=== PATIENT | male | born 1950 | race Caucasian/White ===

== ENCOUNTER 2016-07-14 17:11 | Emergency (ER) | payer OTHER ==
[~2016-07-14] VITALS: Ht 193 cm; Wt 83.0 kg
[~2016-07-14 17:11] MED LIST: DOCU1CAP39 PO; LISI5 PO; LORTA5 PO; NICO21T TD; PRED10 PO; THIA100T PO
[2016-07-14 17:59] VITALS: BP 109/64; PULSE 69; RESP 16; TEMP 98.6; O2SAT 95
[2016-07-14 18:04] VITALS: BP 109/64; PULSE 67; RESP 16; TEMP 97.6; O2SAT 95
[2016-07-14] MEDS ORDERED: SODIUM CHLORIDE 0.9% FLUSH 10 ML FLUSH IVF PRN (18:15)
[2016-07-14] MEDS ORDERED: TETANUS/DIPHTHERIA TOXOID ADULT 0.5 ML VIAL IM ONE (18:15)
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
[2016-07-14] MEDS ORDERED: LORazepam 2 MG/ML VIAL IV PUSH ONE ×2 (18:30→18:45)
[2016-07-14] MEDS ORDERED: HALOPERIDOL LACTATE 5 MG/ML AMP IV PUSH ONE (18:30)
[2016-07-14 18:32] LABS: AUTOMATED NEUTROPHIL # 2.3 TH/MM3 (1.8-7.7); BASOPHIL % 0.8 % (0.0-2.0); HEMO FLAGS DIFF FINAL; LYMPH % 40.4 % (9.0-44.0); MEAN CORPUSCULAR HGB CONC 33.3 % (32.0-36.0); NEUT % 46.8 % (16.0-70.0); PLATELET COUNT 186 TH/MM3 (150-450); RED BLOOD COUNT 4.07 MIL/MM3 (4.50-5.90); RED CELL DISTRIBUTION WIDTH 15.4 % (11.6-17.2); WHITE BLOOD COUNT 4.9 TH/MM3 (4.0-11.0)
[2016-07-14 18:47] LABS: APTT (PATIENT) 29.8 SEC (24.3-30.1); INTERNATIONAL NORMALIZED RATIO 0.9 RATIO; PROTHROMBIN TIME - PATIENT 10.2 SEC (9.8-11.6)
[2016-07-14 19:00] LABS: BICARBONATE 22.8 MEQ/L (21.0-32.0); MAGNESIUM 2.2 MG/DL (1.5-2.5); POTASSIUM 3.8 MEQ/L (3.5-5.1)
--- NOTE | 2016-07-14 19:25 | RADRPT ---
EXAM DATE/TIME: 07/14/2016 18:57 [facility] COMPARISON: CT BRAIN W/O CONTRAST, July 02, 2015, 19:53. INDICATIONS : Found unresponsive. RADIATION DOSE: 36.17 CTDIvol (mGy) MEDICAL HISTORY : Seizures. SURGICAL HISTORY : None. ENCOUNTER: Initial ACUITY: 1 day PAIN SCALE: Non-responsive LOCATION: cranial TECHNIQUE: Multiple contiguous axial images were obtained of the head. Using automated exposure control and adj ustment of the mA and/or kV according to patient size, radiation dose was kept as low as reasonably a chievable to obtain optimal diagnostic quality images. FINDINGS: CEREBRUM: A small chronic lacunar infarction involving the right basal ganglia. This is unchanged. The ventricl es are normal for age. No evidence of midline shift, mass lesion, hemorrhage or acute infarction. N o extra-axial fluid collections are seen. POSTERIOR FOSSA: The cerebellum and brainstem are intact. The 4th ventricle is midline. The cerebellopontine angle i s unremarkable. EXTRACRANIAL: The visualized portion of the orbits is intact. SKULL: The calvaria is intact. No evidence of skull fracture. CONCLUSION: No acute intracranial abnormality. Fernando Solares Jr., MD on July 14, 2016 at 19:20 Board Certified Radiologist. This report was verified electronically.
[2016-07-14] MEDS ORDERED: SODIUM CHLORID 0.9% 500 ML INJ 500 ML IV ONE (20:00)
--- NOTE | 2016-07-14 20:16 | RADRPT ---
EXAM DATE/TIME: 07/14/2016 19:48 [facility] COMPARISON: No previous studies available for comparison. INDICATIONS : Right shoulder pain after fall. MEDICAL HISTORY : None. SURGICAL HISTORY : None. ENCOUNTER: Initial ACUITY: 1 day PAIN SCORE: Non-responsive. LOCATION: Right shoulder. FINDINGS: 2 views of the right shoulder show no fracture or dislocation. Degenerative changes involving the gle nohumeral joint and acromioclavicular joint. Soft tissues are unremarkable. CONCLUSION: 1. Degenerative changes. No acute abnormality. Fernando Solares Jr., MD on July 14, 2016 at 20:13 Board Certified Radiologist. This report was verified electronically.
--- NOTE | 2016-07-14 21:53 | RADRPT ---
EXAM DATE/TIME: 07/14/2016 21:33 [facility] COMPARISON: No previous studies available for comparison. INDICATIONS : Trauma, fall. Abrasion to forehead. RADIATION DOSE: 34.21 CTDIvol (mGy) MEDICAL HISTORY : None SURGICAL HISTORY : None. ENCOUNTER: Initial ACUITY: 1 day PAIN SCORE: 0/10 LOCATION: facial TECHNIQUE: Volumetric scanning of the facial bones was performed. Using automated exposure control and adjustme nt of the mA and/or kV according to patient size, radiation dose was kept as low as reasonably achiev able to obtain optimal diagnostic quality images. FINDINGS: ORBITS: The orbital and infraorbital osseous structures are intact. The retroconal structures have a normal configuration. No radiopaque foreign bodies are seen. NASAL BONE: The nasal bone and maxillary spine are intact the nasal septum is deviated slightly towards the patie nt's right. ZYGOMATIC ARCHES: Symmetric without evidence of fracture. SINUSES: The maxillary, ethmoid and frontal sinuses are intact. No air-fluid levels seen. Mild mucosal thicke maria del carmen involving the left maxillary sinus. NASAL CAVITY: The nasal septum is intact and midline. The lacrimal ducts are intact. SOFT TISSUES: No radiopaque foreign bodies seen. No soft-tissue swelling is seen. INTRACRANIAL: No intracranial air seen. CRIBIFORM PLATE: Grossly intact. CONCLUSION: 1. No acute abnormality. 2. Mild chronic left maxillary sinus disease. Fernando Solares Jr., MD on July 14, 2016 at 21:48 Board Certified Radiologist. This report was verified electronically.
--- NOTE | 2016-07-14 21:59 | RADRPT ---
EXAM DATE/TIME: 07/14/2016 21:33 [facility] COMPARISON: CT CERVICAL SPINE W/O CONTRAST, July 02, 2015, 19:53. INDICATIONS : Trauma, fall. Neck pain. RADIATION DOSE: 36.94 CTDIvol (mGy) MEDICAL HISTORY : Non-responsive. SURGICAL HISTORY : Cervical fusion. ENCOUNTER: Initial ACUITY: 1 day PAIN SCALE: 0/10 LOCATION: neck TECHNIQUE: Volumetric scanning of the cervical spine was performed. Multiplanar reconstructions in the sagittal, coronal and oblique axial planes were performed. Using automated exposure control and adjustment o f the mA and/or kV according to patient size, radiation dose was kept as low as reasonably achievable to obtain optimal diagnostic quality images. FINDINGS: VERTEBRAE: Since the previous examination there has been anterior fusion plate placement and intervening bone gr aft at C3-C4. Vertebral body heights are maintained. No fracture or dislocation. ALIGNMENT: No evidence of subluxation. C2-C3: The bony spinal canal is normal in size. No evidence of disc bulge or herniation. Bony uncovertebral hypertrophy generates bilateral neural foraminal narrowing. C3-C4: This level is fused. Bony uncovertebral hypertrophy generates narrowing of the lateral recesses bilat erally particularly on the left. It also generates significant neural foraminal narrowing bilaterally . Central canal is patent. C4-C5: There is a broad-based disc osteophyte complex. Pronounced bony uncovertebral hypertrophy. There is n arrowing of the central canal with total effacement of the lateral recesses and neural foramina. C5-C6: There is a broad-based disc osteophyte complex. Pronounced bony hypertrophy with narrowing of the lat eral recesses and neural foramina. C6-C7: A broad-based disc osteophyte complex with narrowing of the central canal. Prominent bony uncovertebr al hypertrophy effaces the lateral recesses and neural foramina bilaterally. C7-T1: The bony spinal canal is normal in size. No evidence of disc bulge or herniation. The neural forami na are bilaterally patent. CONCLUSION: 1. No fracture or dislocation. 2. Pronounced degenerative changes as detailed above. Fernando Solares Jr., MD on July 14, 2016 at 21:51 Board Certified Radiologist. This report was verified electronically.
[2016-07-15 00:12] VITALS: BP 135/70; PULSE 70; RESP 14; O2SAT 95
[2016-07-15 04:52] VITALS: BP 135/72; PULSE 80; RESP 18; O2SAT 98
== END 2016-07-15 05:18 | disposition home or self-care (01) ==
LOC: NEPE 17:11
DX: S09.90XA Unspecified injury of head, initial encounter (principal); S00.81XA Abrasion of other part of head, initial encounter; F10.229 Alcohol dependence with intoxication, unspecified; E87.1 Hypo-osmolality and hyponatremia; M25.511 Pain in right shoulder; F17.200 Nicotine dependence, unspecified, uncomplicated; W19.XXXA Unspecified fall, initial encounter; Y92.002 Bathroom of unspecified non-institutional (private) residence as the place of occurrence of the external cause; Z23 Encounter for immunization; Z86.59 Personal history of other mental and behavioral disorders; Z87.39 Personal history of other diseases of the musculoskeletal system and connective tissue; E78.00 Pure hypercholesterolemia, unspecified; Z87.09 Personal history of other diseases of the respiratory system; Z87.19 Personal history of other diseases of the digestive system; Z86.69 Personal history of other diseases of the nervous system and sense organs
CPT/HCPCS: 70450; 70486; 72125; 73030; 80048; 80307; 83735; 85025; 85610; 85730; 90471; 90714; 96361; 96374; 99285; J2060; J7040

== ENCOUNTER 2016-07-29 21:38 | Emergency (ER) | payer OTHER ==
[2016-07-29 21:52] VITALS: BP 152/84; PULSE 63; RESP 19; TEMP 97.9; O2SAT 100
[2016-07-29] MEDS ORDERED: LORazepam 2 MG/ML VIAL IV ONE (22:15)
[2016-07-29] MEDS ORDERED: HALOPERIDOL LACTATE 5 MG/ML AMP IV ONE (22:15)
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
[2016-07-29] MEDS ORDERED: LORazepam 2 MG/ML VIAL IV PUSH ONE (22:30)
[2016-07-29] MEDS ORDERED: diphenhydrAMINE HCL 50 MG/ML VIAL IV PUSH ONE (22:30)
[2016-07-29 23:00] VITALS: BP 111/70; PULSE 68; RESP 17; O2SAT 98
[2016-07-29 23:02] LABS: BASOPHIL % 0.5 % (0.0-2.0); EOSINOPHIL # 0.1 TH/MM3 (0-0.4); EOSINOPHIL % 1.5 % (0.0-4.0); HEMATOCRIT 40.8 % (39.0-51.0); HEMO FLAGS DIFF FINAL; LYMPH % 47.8 % (9.0-44.0); LYMPHOCYTE # 2.5 TH/MM3 (1.0-4.8); MEAN CELL VOLUME 97.5 FL (80.0-100.0); MEAN CORPUSCULAR HEMOGLOBIN 33.4 PG (27.0-34.0); MEAN CORPUSCULAR HGB CONC 34.3 % (32.0-36.0); MONO % 11.5 % (0.0-8.0); NEUT % 38.7 % (16.0-70.0); PLATELET COUNT 140 TH/MM3 (150-450); RED BLOOD COUNT 4.19 MIL/MM3 (4.50-5.90); RED CELL DISTRIBUTION WIDTH 15.4 % (11.6-17.2); WHITE BLOOD COUNT 5.2 TH/MM3 (4.0-11.0)
[2016-07-29 23:19] LABS: AMPHETAMINE, URINE NEG (NEG); BARBITURATES, URINE NEG (NEG); COCAINE, URINE NEG (NEG)
[2016-07-29 23:20] LABS: ANION GAP 7 MEQ/L (5-15); BICARBONATE 28.7 MEQ/L (21.0-32.0); BLOOD UREA NITROGEN 4 MG/DL (7-18); CHLORIDE 96 MEQ/L (98-107); GLOMERULAR FILTRATION RATE 147 ML/MIN (>89); POTASSIUM 3.5 MEQ/L (3.5-5.1); SODIUM (NA) 132 MEQ/L (136-145)
[2016-07-29 23:31] LABS: ACETAMINOPHEN LESS THAN 2.0 MCG/ML (10.0-30.0)
[2016-07-30] VITALS (8 sets, daily range): BP systolic 117–142; BP diastolic 67–86; PULSE 63–89; RESP 17–21; TEMP 96.9–98; O2SAT 98–99
--- NOTE | 2016-07-30 12:26 | PD ---
History of Present Illness Chief Complaint: Psychiatric Symptoms Time Seen by Provider: 14:00 Travel History International Travel<30 Days: No Contact w/Intl Traveler<30days: No Known affected area: No Legal Status Legal Status: Saray Valadez Act Signed By: JESUS Valadez Act Comment: OFFICER MONIE PUTNAM #[id number] History of Present Illness: Patient seen by this physician. He is obviously alcoholic. This facility is not licensed for alcohol detox or rehabilitation. Patient is not suicidal or homicidal at this time. His level of intoxication as dropped dramatically from a clinical standpoint. Patient reportedly has caregivers at home. Unlikely [facility] will take patient. However they are license for alcohol rehabilitation. This physician has lifted the Aprilpepper act as patient is not apparently wanting to harm himself or others at this time. PFSH Past Medical History Hx Anticoagulant Therapy: No Arthritis: Yes Asthma: No Autoimmune Disease: No Blood Disorders: No Anxiety: No Depression: Yes Heart Rhythm Problems: No Cancer: No Cardiovascular Problems: No High Cholesterol: Yes Chemotherapy: No Chest Pain: No Congestive Heart Failure: No COPD: Yes Cerebrovascular Accident: No Diabetes: No Diminished Hearing: No Endocrine: No Gastrointestinal Disorders: No GERD: No Glaucoma: No Genitourinary: No Headaches: Yes Hepatitis: Yes Hiatal Hernia: No Hypertension: No Immune Disorder: No Implanted Vascular Access Dvce: No Kidney Stones: No Musculoskeletal: Yes (CHRONIC SHOULDER/ROTATOR CUFF PAIN) Neurologic: Yes (OLD SKULL FX AND CHILD) Psychiatric: Yes (DEPRESSION) Reproductive: No Respiratory: No Immunizations Current: Yes Migraines: No Myocardial Infarction: No Radiation Therapy: No Renal Failure: No Seizures: Yes Sickle Cell Disease: No Sleep Apnea: No Thyroid Disease: No Ulcer: No Past Surgical History Abdominal Surgery: No AICD: No Appendectomy: No Arteriovenous Shunt: No Body Medical Devices: "METAL LEFT LEG " Cardiac Surgery: No Cholecystectomy: No Ear Surgery: No Endocrine Surgery: No Eye Surgery: Yes (CATARACT SURGERY BILATERALLY) Genitourinary Surgery: No Gynecologic Surgery: No Hysterectomy: No Insulin Pump: No Joint Replacement: No Neurologic Surgery: No Oral Surgery: No Pacemaker: No Thoracic Surgery: No Tonsillectomy: Yes Psychiatric History Psychiatric History Hx Psychiatric Treatment: HX. OF DEPRESSION. No significant evidence of depression after intoxication. History of Inpatient Treatment: No Guns or firearms in home: No Social History Hx Alcohol Use: Yes (" MUCH I CAN GET") Hx Tobacco Use: Yes (1 PACK PER DAY) Hx Substance Use: Yes Substance Use Type: Alcohol Other Substances Used: CHRONIC ETOH ABUSE Hx of Substance Use Treatment: No Allergies-Medications (Allergen,Severity, Reaction): Coded Allergies: No Known Allergies (Verified , 07/29/16) according to mother Reported Meds & Prescriptions Reported Meds & Active Scripts Active No Active Prescriptions or Reported Medications Review of Systems Except as stated in HPI: all other systems reviewed are Neg Exam Alert: Yes [place]: Person, Place, Situation Mood: Calm Affect: Appropriate Speech: Clear Eye Contact: Normal Memory Intact: Immediate, Recent, Remote Insight/Judgement Adequate MDM Medical Decision Making Medical Record Reviewed: Yes Assessment/Plan Patient's RenettaFND act being lifted as it is inappropriate in this situation. If patient wants detox and rehabilitation, recommend he goes to [facility]. However [facility] may refuse him because of his multiple medical issues. Psychiatry has nothing further to offer this individual. Orders Haloperidol Inj (Haldol Inj) (07/29/16 22:15) Complete Blood Count With Diff (07/29/16 22:13) Basic Metabolic Panel (Bmp) (07/29/16 22:13) Psych Screen (07/29/16 22:13) Lorazepam Inj (Ativan Inj) (07/29/16 22:15) Drug Screen, Random Urine (07/29/16 22:13) Alcohol (Ethanol) (07/29/16 22:13) Salicylates (Aspirin) (07/29/16 22:13) Tylenol (Acetaminophen) (07/29/16 22:13) Diphenhydramine Inj (Benadryl Inj) (07/29/16 22:30) Character Impersonator / Telemetry YVON.Q8H (07/29/16 22:16) End Tidal Co2 (Etco2) (07/29/16 ) Lorazepam Inj (Ativan Inj) (07/29/16 22:30) Restraints Non-Violent YVON.Q3H (07/30/16 00:15) Diet Regular Basic (07/30/16 Breakfast) Diet Regular Basic (07/30/16 Lunch) Results Vital Signs Date Time Temp Pulse Resp B/P Pulse Ox O2 Delivery O2 Flow Rate FiO2 07/30/16 10:00 88 18 117/68 Room Air 07/30/16 06:34 83 18 142/79 07/30/16 04:23 96.9 63 18 139/67 Room Air 07/30/16 03:00 67 17 135/86 98 Room Air 07/30/16 01:00 65 18 128/78 99 07/30/16 00:00 68 21 129/72 98 Room Air 07/29/16 23:00 68 17 111/70 98 Room Air 07/29/16 21:59 65 19 07/29/16 21:52 97.9 63 19 152/84 100 Laboratory Tests Test 07/29/16 22:45 White Blood Count 5.2 Red Blood Count 4.19 Hemoglobin 14.0 Hematocrit 40.8 Mean Corpuscular Volume 97.5 Mean Corpuscular Hemoglobin 33.4 Mean Corpuscular Hemoglobin 34.3 Concent Red Cell Distribution Width 15.4 Platelet Count 140 Mean Platelet Volume 7.7 Neutrophils (%) (Auto) 38.7 Lymphocytes (%) (Auto) 47.8 Monocytes (%) (Auto) 11.5 Eosinophils (%) (Auto) 1.5 Basophils (%) (Auto) 0.5 Neutrophils # (Auto) 2.0 Lymphocytes # (Auto) 2.5 Monocytes # (Auto) 0.6 Eosinophils # (Auto) 0.1 Basophils # (Auto) 0.0 CBC Comment DIFF FINAL Differential Comment Sodium Level 132 Potassium Level 3.5 Chloride Level 96 Carbon Dioxide Level 28.7 Anion Gap 7 Blood Urea Nitrogen 4 Creatinine 0.56 Estimat Glomerular Filtration 147 Rate Random Glucose 86 Calcium Level 8.6 Salicylates Level 4.6 Urine Opiates Screen NEG Acetaminophen Level LESS THAN 2.0 Urine Barbiturates Screen NEG Urine Amphetamines Screen NEG Urine Benzodiazepines Screen NEG Urine Cocaine Screen NEG Urine Cannabinoids Screen NEG Ethyl Alcohol Level 285 Diagnosis Primary Impression: Alcohol abuse Prescriptions No Active Prescriptions or Reported Meds John Manzano MD Jul 30, 2016 12:26
== END 2016-07-30 17:05 | disposition home or self-care (01) ==
LOC: NEPD 21:38 → NEPJ 07-30 17:05
DX: F10.129 Alcohol abuse with intoxication, unspecified (principal); Y90.8 Blood alcohol level of 240 mg/100 ml or more; M79.601 Pain in right arm; J44.9 Chronic obstructive pulmonary disease, unspecified; E78.00 Pure hypercholesterolemia, unspecified; F17.210 Nicotine dependence, cigarettes, uncomplicated
CPT/HCPCS: 80048; 80307; 85025; 96374; 96375; 99285; J1200; J1630; J2060

== ENCOUNTER 2016-08-05 11:55 | Emergency (ER) | payer OTHER ==
[~2016-08-05] VITALS: Ht 180.3 cm; Wt 60.0 kg
[2016-08-05 12:06] VITALS: BP 126/83; PULSE 79; RESP 20; TEMP 98; O2SAT 100
--- NOTE | 2016-08-05 12:08 | PD ---
HPI . fall with head injury Chief Complaint: Fall Time Seen by Provider: 12:08 Travel History International Travel<30 days: No Contact w/Intl Traveler<30days: No Traveled to known affect area: No History of Present Illness HPI 66 yr old male with hx of alcoholism here status post fall yesterday. Patient says he was in his bathroom and slipped and fell. He has been laying in his bathroom since yesterday and was found today by [employer] providers. He does not recall any of the event. He is complaining of pain in and around his nose. Paramedics found him covered in blood. There was also blood in his bed. Patient was most recently here on July 29, 2016 with alcohol intoxication. PFSH Past Medical History Hx Anticoagulant Therapy: No Arthritis: Yes Asthma: No Autoimmune Disease: No Blood Disorders: No Anxiety: No Depression: Yes Heart Rhythm Problems: No Cancer: No Cardiovascular Problems: No High Cholesterol: Yes Chemotherapy: No Chest Pain: No Congestive Heart Failure: No COPD: Yes Cerebrovascular Accident: No Diabetes: No Diminished Hearing: No Endocrine: No Gastrointestinal Disorders: No GERD: No Glaucoma: No Genitourinary: No Headaches: Yes Hepatitis: Yes Hiatal Hernia: No Hypertension: No Immune Disorder: No Implanted Vascular Access Dvce: No Kidney Stones: No Musculoskeletal: Yes (CHRONIC SHOULDER/ROTATOR CUFF PAIN) Neurologic: Yes (OLD SKULL FX AND CHILD) Psychiatric: Yes (DEPRESSION) Reproductive: No Respiratory: No Immunizations Current: Yes Migraines: No Myocardial Infarction: No Radiation Therapy: No Renal Failure: No Seizures: Yes Sickle Cell Disease: No Sleep Apnea: No Thyroid Disease: No Ulcer: No Past Surgical History Abdominal Surgery: No AICD: No Appendectomy: No Arteriovenous Shunt: No Body Medical Devices: "METAL LEFT LEG " Cardiac Surgery: No Cholecystectomy: No Ear Surgery: No Endocrine Surgery: No Eye Surgery: Yes (CATARACT SURGERY BILATERALLY) Genitourinary Surgery: No Gynecologic Surgery: No Hysterectomy: No Insulin Pump: No Joint Replacement: No Neurologic Surgery: No Oral Surgery: No Pacemaker: No Thoracic Surgery: No Tonsillectomy: Yes Social History Alcohol Use: Yes (" MUCH I CAN GET") Tobacco Use: Yes (1 PACK PER DAY) Substance Use: Yes Allergies-Medications (Allergen,Severity, Reaction): Coded Allergies: No Known Allergies (Verified , 07/29/16) according to mother Reported Meds & Prescriptions Reported Meds & Active Scripts Active No Active Prescriptions or Reported Medications Review of Systems General / Constitutional: No: Fever Eyes: No: Visual changes HENT: Positive: Other (nose pain ), No: Headaches Cardiovascular: No: Chest Pain or Discomfort Respiratory: No: Shortness of Breath Gastrointestinal: No: Abdominal Pain Genitourinary: No: Dysuria Musculoskeletal: Positive: Pain (chronic right shoulder pain ) Skin: No Rash Neurologic: No: Weakness Psychiatric: No: Depression Endocrine: No: Polydipsia Hematologic/Lymphatic: No: Easy Bruising Physical Exam Narrative GENERAL: AAO x 3, thin appearing, Disheveled, smells like urine and raw poultry. SKIN: Warm and dry. No visible rashes or bruising. small laceration 2.5 cm to forehead HEAD: Normocephalic and atraumatic. EYES: No scleral icterus. No injection or drainage. EOM intact, PERRLA ENT: No nasal drainage noted. Mucous membranes pink. Airway patent. NECK: Supple, trachea midline. No JVD. CARDIOVASCULAR: Regular rate and rhythm without murmurs, gallops, or rubs. RESPIRATORY: Breath sounds equal bilaterally. No accessory muscle use. No rhonchi or rales. GASTROINTESTINAL: Abdomen soft, non-tender, nondistended. EXTREMITIES: No cyanosis or edema. Right shoulder pain elicited with movement; BACK: Nontender without obvious deformity. No CVA tenderness. NEURO: CN II-12 intact, tax specialist strength normal b/l, UE and LE 5/5, no focal deficits PSYCH: AAO x 3, normal affect. Data Data Last Documented VS Vital Signs Date Time Temp Pulse Resp B/P Pulse Ox O2 Delivery O2 Flow Rate FiO2 08/05/16 13:16 71 16 167/86 97 08/05/16 12:06 98.0 Orders Complete Blood Count With Diff (08/05/16 12:08) Comprehensive Metabolic Panel (08/05/16 12:08) Prothrombin Time / Inr (Pt) (08/05/16 12:08) Act Partial Throm Time (Ptt) (08/05/16 12:08) Ct Brain W/O Iv Contrast(Rout) (08/05/16 12:08) Ecg Monitoring (08/05/16 12:08) Iv Access Insert/Monitor (08/05/16 12:08) Oximetry (08/05/16 12:08) Sodium Chloride 0.9% Flush (Ns Flush) (08/05/16 12:15) Ct Facial Bones W/O Iv Cont (08/05/16 12:08) Sodium Chlor 0.9% 1000 Ml Inj (Ns 1000 M (08/05/16 12:15) Chest, Single Ap (08/05/16 ) Lidocaine 1% Inj (50 Ml) (Xylocaine 1% I (08/05/16 12:45) Tetanus/Diphtheria Tox Adult (Tetanus/Di (08/05/16 12:45) Labs Laboratory Tests Test 08/05/16 12:20 White Blood Count 6.0 TH/MM3 Red Blood Count 3.37 MIL/MM3 Hemoglobin 11.0 GM/DL Hematocrit 32.0 % Mean Corpuscular Volume 94.9 FL Mean Corpuscular Hemoglobin 32.7 PG Mean Corpuscular Hemoglobin 34.4 % Concent Red Cell Distribution Width 15.3 % Platelet Count 142 TH/MM3 Mean Platelet Volume 7.8 FL Neutrophils (%) (Auto) 57.1 % Lymphocytes (%) (Auto) 30.7 % Monocytes (%) (Auto) 11.4 % Eosinophils (%) (Auto) 0.3 % Basophils (%) (Auto) 0.5 % Neutrophils # (Auto) 3.4 TH/MM3 Lymphocytes # (Auto) 1.8 TH/MM3 Monocytes # (Auto) 0.7 TH/MM3 Eosinophils # (Auto) 0.0 TH/MM3 Basophils # (Auto) 0.0 TH/MM3 CBC Comment DIFF FINAL Differential Comment Prothrombin Time 10.7 SEC Prothromb Time International 1.0 RATIO Ratio Activated Partial 26.6 SEC Thromboplast Time Sodium Level 134 MEQ/L Potassium Level 3.8 MEQ/L Chloride Level 99 MEQ/L Carbon Dioxide Level 26.4 MEQ/L Anion Gap 9 MEQ/L Blood Urea Nitrogen 5 MG/DL Creatinine 0.63 MG/DL Estimat Glomerular Filtration 128 ML/MIN Rate Random Glucose 109 MG/DL Calcium Level 8.7 MG/DL Total Bilirubin 0.9 MG/DL Aspartate Amino Transf 15 U/L (AST/SGOT) Alanine Aminotransferase 15 U/L (ALT/SGPT) Alkaline Phosphatase 64 U/L Total Protein 6.5 GM/DL Albumin 3.0 GM/DL MDM Medical Decision Making Medical Screen Exam Complete: Yes Emergency Medical Condition: Yes Medical Record Reviewed: Yes Differential Diagnosis forehead laceration, etoh abuse, closed head injury, chronic right shoulder pain , nasal fracture, Narrative Course 66 yr old male here s/p fall yesterday. He appears to have a small laceration to his forehead. Exam is otherwise unremarkable except for right shoulder pain with movement that is reported as chronic. IV access was obtained, patient was given IV fluids. Labs, chest x-ray and CT of the chest along with CT of the facial bones have been ordered. Patient consented to repair of the laceration on his for head. Patient tolerated repair without incident. A total of 5 sutures were placed. He was advised to have these removed in 5-7 days. labs reviewed: mild hyponatremia, hypoalbuminemia, CT brain no acute findings. CXR no acute findings. Last Impressions Head CT 08/05/16 1208 Signed Impressions: Service Date/Time: , August 05, 2016 13:28 - CONCLUSION: 1. No acute intracranial abnormality. 2. Contusion within the scalp. Santiago Cox MD Chest X-Ray 08/05/16 0000 Signed Impressions: Service Date/Time: , August 05, 2016 12:42 - CONCLUSION: 1. No acute cardiopulmonary disease. Randall Gonzalez MD Laboratory Tests Test 08/05/16 12:20 White Blood Count 6.0 TH/MM3 Red Blood Count 3.37 MIL/MM3 Hemoglobin 11.0 GM/DL Hematocrit 32.0 % Mean Corpuscular Volume 94.9 FL Mean Corpuscular Hemoglobin 32.7 PG Mean Corpuscular Hemoglobin 34.4 % Concent Red Cell Distribution Width 15.3 % Platelet Count 142 TH/MM3 Mean Platelet Volume 7.8 FL Neutrophils (%) (Auto) 57.1 % Lymphocytes (%) (Auto) 30.7 % Monocytes (%) (Auto) 11.4 % Eosinophils (%) (Auto) 0.3 % Basophils (%) (Auto) 0.5 % Neutrophils # (Auto) 3.4 TH/MM3 Lymphocytes # (Auto) 1.8 TH/MM3 Monocytes # (Auto) 0.7 TH/MM3 Eosinophils # (Auto) 0.0 TH/MM3 Basophils # (Auto) 0.0 TH/MM3 CBC Comment DIFF FINAL Differential Comment Prothrombin Time 10.7 SEC Prothromb Time International 1.0 RATIO Ratio Activated Partial 26.6 SEC Thromboplast Time Sodium Level 134 MEQ/L Potassium Level 3.8 MEQ/L Chloride Level 99 MEQ/L Carbon Dioxide Level 26.4 MEQ/L Anion Gap 9 MEQ/L Blood Urea Nitrogen 5 MG/DL Creatinine 0.63 MG/DL Estimat Glomerular Filtration 128 ML/MIN Rate Random Glucose 109 MG/DL Calcium Level 8.7 MG/DL Total Bilirubin 0.9 MG/DL Aspartate Amino Transf 15 U/L (AST/SGOT) Alanine Aminotransferase 15 U/L (ALT/SGPT) Alkaline Phosphatase 64 U/L Total Protein 6.5 GM/DL Albumin 3.0 GM/DL All labs reviewed. CT of the brain without any acute intracranial abnormality. CT of the facial bones without any acute fracture. There is an old nasal bone fracture. Workup is unremarkable for any acute findings. Admission is not indicated. Patient is ambulatory. Patient has been cleared for discharge and was advised to follow-up with his primary care provider. I've recommended that he refrain from drinking alcohol. I recommended he try to enroll in some type of alcoholic anonymous program or rehabilitation. Patient verbalized understanding of instructions, questions were answered, and thanked me for their care. I advised them if their condition worsens, please return to the nearest emergency room for further care. Procedures Procedure Narrative LACERATION LOCATION: Forehead LENGTH: 2.5 cm NUMBER OF STITCHES/MARTINE: 5 REPAIR: The area of the laceration was prepped with Betadine and sterilely draped. The laceration was infiltrated with 1% lidocaine. The wound was copiously irrigated and explored without evidence of foreign body, tendon injury or neurovascular injury. The wound was closed using 5-0 Prolene. This was a single layer repair. A sterile dressing was applied. The patient was advised to keep the dressing clean and dry. Patient tolerated the procedure well. Diagnosis Primary Impression: Forehead laceration Qualified Code: S01.81XA - Forehead laceration, initial encounter Additional Impression: Fall Qualified Code: W19.XXXA - Fall, initial encounter Patient Instructions: General Instructions Additional Instructions: Sutures (5) will need to be removed in 5-7 days. As we discussed, you can go to an urgent care, primary care doctor, the [place] [facility] or return to the emergency department for removal. Keep area clean and dry. Use gauze as we discussed and change 1-2 times a day. Watch for signs of infection: fever, redness, swelling, warmth, pus or drainage , red streaks around the cut, and increased pain from the area. If you received a tetanus shot, you may experience tenderness at the injection site. This is normal. Med/Other Pt SpecificInfo: No Change to Meds Scripts No Active Prescriptions or Reported Meds Disposition: 01 DISCHARGE HOME Condition: Stable Loli Manuel Aug 05, 2016 12:08
[2016-08-05] MEDS ORDERED: SODIUM CHLORIDE 0.9% FLUSH 10 ML FLUSH IVF PRN (12:15)
[2016-08-05] MEDS ORDERED: SODIUM CHLOR 0.9% 1000 ML INJ 1,000 ML IV ONE (12:15)
[2016-08-05 12:17] VITALS: O2SAT 100
[2016-08-05 12:44] VITALS: BP 113/68; PULSE 76; RESP 16; O2SAT 97
[2016-08-05] MEDS ORDERED: TETANUS/DIPHTHERIA TOXOID ADULT 0.5 ML VIAL IM ONE (12:45)
[2016-08-05] MEDS ORDERED: LIDOCAINE HCL 1% 50 ML VIAL INFIL ONE (12:45)
[2016-08-05 12:46] LABS: AUTOMATED NEUTROPHIL # 3.4 TH/MM3 (1.8-7.7); BASOPHIL % 0.5 % (0.0-2.0); EOSINOPHIL % 0.3 % (0.0-4.0); HEMO FLAGS DIFF FINAL; LYMPH % 30.7 % (9.0-44.0); LYMPHOCYTE # 1.8 TH/MM3 (1.0-4.8); MEAN CELL VOLUME 94.9 FL (80.0-100.0); MEAN CORPUSCULAR HEMOGLOBIN 32.7 PG (27.0-34.0); MEAN CORPUSCULAR HGB CONC 34.4 % (32.0-36.0); MONO % 11.4 % (0.0-8.0); NEUT % 57.1 % (16.0-70.0); PLATELET COUNT 142 TH/MM3 (150-450); RED BLOOD COUNT 3.37 MIL/MM3 (4.50-5.90); RED CELL DISTRIBUTION WIDTH 15.3 % (11.6-17.2)
[2016-08-05 12:55] LABS: APTT (PATIENT) 26.6 SEC (24.3-30.1); PROTHROMBIN TIME - PATIENT 10.7 SEC (9.8-11.6)
[2016-08-05 13:04] LABS: ALT (GPT) 15 U/L (12-78); ANION GAP 9 MEQ/L (5-15); AST (GOT) 15 U/L (15-37); BICARBONATE 26.4 MEQ/L (21.0-32.0); BLOOD UREA NITROGEN 5 MG/DL (7-18); CHLORIDE 99 MEQ/L (98-107); GLOMERULAR FILTRATION RATE 128 ML/MIN (>89); POTASSIUM 3.8 MEQ/L (3.5-5.1); SODIUM (NA) 134 MEQ/L (136-145)
[2016-08-05 13:06] LABS: ALKALINE PHOSPHATASE 64 U/L (45-117); TOTAL BILIRUBIN ADULT 0.9 MG/DL (0.2-1.0)
--- NOTE | 2016-08-05 13:07 | RADRPT ---
EXAM DATE/TIME: 08/05/2016 12:42 [facility] COMPARISON: CHEST SINGLE AP, July 10, 2015, 13:22. INDICATIONS : Chest discomfort; fall. MEDICAL HISTORY : Chronic obstructive pulmonary disease. SURGICAL HISTORY : None. ENCOUNTER: Initial ACUITY: 1 day PAIN SCORE: 2/10 LOCATION: Bilateral chest FINDINGS: Lungs are hyper aerated but are otherwise clear. Cardiomediastinal contours are within normal limits. Healed left-sided rib fractures are again noted. Bony thorax is otherwise intact. CONCLUSION: 1. No acute cardiopulmonary disease. Randall Gonzalez MD on August 05, 2016 at 13:04 Board Certified Radiologist. This report was verified electronically.
[2016-08-05 13:16] VITALS: BP 167/86; PULSE 71; RESP 16; O2SAT 97
--- NOTE | 2016-08-05 13:43 | RADRPT ---
EXAM DATE/TIME: 08/05/2016 13:28 [facility] COMPARISON: CT FACIAL BONES W/O CONTRAST, July 14, 2016, 21:33. INDICATIONS : Patient fell RADIATION DOSE: 35.28 CTDIvol (mGy) MEDICAL HISTORY : Chronic obstructive pulmonary disease. Seizures. Hepatitis. SURGICAL HISTORY : None. ENCOUNTER: Initial ACUITY: 1 day PAIN SCALE: 0/10 LOCATION: cranial TECHNIQUE: Multiple contiguous axial images were obtained of the head. Using automated exposure control and adj ustment of the mA and/or kV according to patient size, radiation dose was kept as low as reasonably a chievable to obtain optimal diagnostic quality images. FINDINGS: CEREBRUM: The ventricles are normal for age. No evidence of midline shift, mass lesion, hemorrhage or acute in farction. No extra-axial fluid collections are seen. POSTERIOR FOSSA: The cerebellum and brainstem are intact. The 4th ventricle is midline. The cerebellopontine angle i s unremarkable. EXTRACRANIAL: The visualized portion of the orbits is intact. SKULL: No evidence of skull fracture. Note is made of hematoma within the scalp along the frontal region. CONCLUSION: 1. No acute intracranial abnormality. 2. Contusion within the scalp. Santiago Cox MD on August 05, 2016 at 13:39 Board Certified Radiologist. This report was verified electronically.
--- NOTE | 2016-08-05 16:31 | RADRPT ---
EXAM DATE/TIME: 08/05/2016 13:28 [facility] COMPARISON: No previous studies available for comparison. INDICATIONS : Patient fell RADIATION DOSE: 60.59 CTDIvol (mGy) MEDICAL HISTORY : Chronic obstructive pulmonary disease. Seizures. Hepatitis. SURGICAL HISTORY : None. ENCOUNTER: Initial ACUITY: 1 day PAIN SCORE: 5/10 LOCATION: Left forehead TECHNIQUE: Volumetric scanning of the facial bones was performed. Using automated exposure control and adjustme nt of the mA and/or kV according to patient size, radiation dose was kept as low as reasonably achiev able to obtain optimal diagnostic quality images. FINDINGS: There is a laceration in the left frontal scalp. No acute facial bone fracture. Old nasal bone fractu re similar to July 14. Visualized paranasal sinuses are clear. Globes intact. CONCLUSION: 1. Left frontal scalp laceration. Old left nasal bone fracture. No acute fracture identified. Kiet Gonzalez MD on August 05, 2016 at 16:25 Board Certified Radiologist. This report was verified electronically.
[2016-08-05 17:41] VITALS: BP 123/72; PULSE 78; RESP 20
== END 2016-08-05 17:43 | disposition home or self-care (01) ==
LOC: NEPC 11:55
DX: S01.81XA Laceration without foreign body of other part of head, initial encounter (principal); S00.03XA Contusion of scalp, initial encounter; E87.1 Hypo-osmolality and hyponatremia; E88.09 Other disorders of plasma-protein metabolism, not elsewhere classified; J44.9 Chronic obstructive pulmonary disease, unspecified; E78.00 Pure hypercholesterolemia, unspecified; F17.210 Nicotine dependence, cigarettes, uncomplicated; W01.0XXA Fall on same level from slipping, tripping and stumbling without subsequent striking against object, initial encounter; Y93.9 Activity, unspecified; Y92.002 Bathroom of unspecified non-institutional (private) residence as the place of occurrence of the external cause; Z23 Encounter for immunization
CPT/HCPCS: 12011; 70450; 70486; 71010; 80053; 85025; 85610; 85730; 90471; 90714; 96360; 96361; 99285; J7030

== ENCOUNTER 2016-08-06 19:53 | Emergency (ER) | payer OTHER ==
[~2016-08-06] VITALS: Ht 182.9 cm; Wt 68.0 kg
[2016-08-06 20:15] VITALS: BP 112/64; PULSE 93; RESP 18; TEMP 98.2; O2SAT 95
--- NOTE | 2016-08-06 20:21 | PD ---
HPI Chief Complaint: Fall Time Seen by Provider: 20:15 Travel History International Travel<30 days: No Contact w/Intl Traveler<30days: No Traveled to known affect area: No History of Present Illness HPI Patient is a 66-year-old male, alcoholic, that fell 2 days ago. He went to [facility] yesterday and the CT brain showed no acute findings and the chest x-ray showed no acute findings and the blood work was unremarkable except for a mild hyponatremia and hypoalbuminemia. An alcohol level was not done at that time. The patient was found in his yard unable to walk. The patient states it is not alcohol, it was a pill that the OH gave been that made him unable to walk. The patient does not know the name of the pill. The patient was brought in by ambulance, a bystander called the ambulance. The patient does not want to be here. The patient denies any alcohol in the last 2 days. PFSH Past Medical History Hx Anticoagulant Therapy: No Arthritis: Yes Asthma: No Autoimmune Disease: No Blood Disorders: No Anxiety: No Depression: Yes Heart Rhythm Problems: No Cancer: No Cardiovascular Problems: No High Cholesterol: Yes Chemotherapy: No Chest Pain: No Congestive Heart Failure: No COPD: Yes Cerebrovascular Accident: No Diabetes: No Diminished Hearing: No Endocrine: No Gastrointestinal Disorders: No GERD: No Glaucoma: No Genitourinary: No Headaches: Yes Hepatitis: Yes Hiatal Hernia: No Hypertension: No Immune Disorder: No Implanted Vascular Access Dvce: No Kidney Stones: No Musculoskeletal: Yes (CHRONIC SHOULDER/ROTATOR CUFF PAIN) Neurologic: Yes (OLD SKULL FX AND CHILD) Psychiatric: Yes (DEPRESSION) Reproductive: No Respiratory: No Immunizations Current: Yes Migraines: No Myocardial Infarction: No Radiation Therapy: No Renal Failure: No Seizures: Yes Sickle Cell Disease: No Sleep Apnea: No Thyroid Disease: No Ulcer: No Past Surgical History Abdominal Surgery: No AICD: No Appendectomy: No Arteriovenous Shunt: No Body Medical Devices: "METAL LEFT LEG " Cardiac Surgery: No Cholecystectomy: No Ear Surgery: No Endocrine Surgery: No Eye Surgery: Yes (CATARACT SURGERY BILATERALLY) Genitourinary Surgery: No Gynecologic Surgery: No Hysterectomy: No Insulin Pump: No Joint Replacement: No Neurologic Surgery: No Oral Surgery: No Pacemaker: No Thoracic Surgery: No Tonsillectomy: Yes Social History Alcohol Use: Yes (" MUCH I CAN GET") Tobacco Use: Yes (1 PACK PER DAY) Substance Use: Yes Allergies-Medications (Allergen,Severity, Reaction): Coded Allergies: No Known Allergies (Verified , 08/06/16) according to mother Reported Meds & Prescriptions Reported Meds & Active Scripts Active No Active Prescriptions or Reported Medications Review of Systems Except as stated in HPI: all other systems reviewed are Neg Physical Exam Narrative GENERAL: The patient is alert, oriented 3 in no apparent distress. SKIN: Focused skin assessment warm/dry. HEAD: There is a small crusted abrasion on the forehead which is healing well and there is no associated bony deformity.. Normocephalic. Neither raccoon eyes or ontiveros sign is present. EYES: Pupils equal and round. No scleral icterus. No injection or drainage. ENT: No nasal bleeding or discharge. Mucous membranes pink and moist. NECK: Trachea midline. No JVD. There is no posterior spinous process deformity or tenderness. CARDIOVASCULAR: Regular rate and rhythm. No murmur appreciated. RESPIRATORY: No accessory muscle use. Clear to auscultation. Breath sounds equal bilaterally. GASTROINTESTINAL: Abdomen soft, non-tender, nondistended. Hepatic and splenic margins not palpable. MUSCULOSKELETAL: No obvious deformities. No clubbing. No cyanosis. No edema. NEUROLOGICAL: Awake and alert. No obvious cranial nerve deficits. Motor grossly within normal limits. Normal speech. PSYCHIATRIC: Appropriate mood and affect; insight and judgment normal. Data Data Last Documented VS Vital Signs Date Time Temp Pulse Resp B/P Pulse Ox O2 Delivery O2 Flow Rate FiO2 08/06/16 20:15 98.2 93 18 112/64 95 Orders Complete Blood Count With Diff (08/06/16 20:17) Comprehensive Metabolic Panel (08/06/16 20:17) Alcohol (Ethanol) (08/06/16 20:17) Sodium Chlor 0.9% 1000 Ml Inj (Ns 1000 M (08/06/16 20:30) Thiamine Inj (Thiamine Inj) (08/06/16 20:30) Labs Laboratory Tests Test 08/06/16 19:35 White Blood Count 6.8 TH/MM3 Red Blood Count 2.89 MIL/MM3 Hemoglobin 9.4 GM/DL Hematocrit 27.3 % Mean Corpuscular Volume 94.7 FL Mean Corpuscular Hemoglobin 32.6 PG Mean Corpuscular Hemoglobin 34.5 % Concent Red Cell Distribution Width 14.9 % Platelet Count 157 TH/MM3 Mean Platelet Volume 7.2 FL Neutrophils (%) (Auto) 46.6 % Lymphocytes (%) (Auto) 41.8 % Monocytes (%) (Auto) 9.3 % Eosinophils (%) (Auto) 0.8 % Basophils (%) (Auto) 1.5 % Neutrophils # (Auto) 3.2 TH/MM3 Lymphocytes # (Auto) 2.8 TH/MM3 Monocytes # (Auto) 0.6 TH/MM3 Eosinophils # (Auto) 0.1 TH/MM3 Basophils # (Auto) 0.1 TH/MM3 CBC Comment DIFF FINAL Differential Comment Sodium Level 137 MEQ/L Potassium Level 3.3 MEQ/L Chloride Level 102 MEQ/L Carbon Dioxide Level 22.3 MEQ/L Anion Gap 13 MEQ/L Blood Urea Nitrogen 7 MG/DL Creatinine 0.72 MG/DL Estimat Glomerular Filtration 110 ML/MIN Rate Random Glucose 99 MG/DL Calcium Level 8.5 MG/DL Total Bilirubin 0.4 MG/DL Aspartate Amino Transf 20 U/L (AST/SGOT) Alanine Aminotransferase 16 U/L (ALT/SGPT) Alkaline Phosphatase 82 U/L Total Protein 6.9 GM/DL Albumin 3.3 GM/DL Ethyl Alcohol Level 238 MG/DL [facility] Medical Decision Making Medical Screen Exam Complete: Yes Emergency Medical Condition: Yes Medical Record Reviewed: Yes Interpretation(s) The CBC shows a hemoglobin of 9.4 and hematocrit of 27.3. It is otherwise normal. The complete metabolic profile shows potassium 3.3 and albumen of 3.3 but is otherwise normal. The alcohol level is 238. Differential Diagnosis Alcohol intoxication, electrolyte imbalance, renal insufficiency, anemia Narrative Course The patient is obviously not truthful about his alcohol use. His alcohol level is 238 when he said he is not drank alcohol yesterday or today. It is suspected that his high alcohol level was responsible for his fall in the yard today. He needs to discontinue alcohol and follow-up with [facility]. His anemia is not severe enough to cause the symptoms. Diagnosis Primary Impression: Alcohol abuse Additional Impression: Anemia Additional Instructions: As we discussed, your alcohol level was extremely high and was probably responsible for the fall today and your yard. Follow-up with [facility] to get off alcohol, this is very important to you. Scripts No Active Prescriptions or Reported Meds Disposition: DISCHARGE HOME Condition: Stable Kosta Sahni MD Aug 06, 2016 20:21
[2016-08-06] MEDS ORDERED: THIAMINE INJ 100 MG in SODIUM CHLORIDE 0.9% INJ 100 ML IV ONE (20:30)
[2016-08-06 20:37] LABS: AUTOMATED NEUTROPHIL # 3.2 TH/MM3 (1.8-7.7); BASOPHIL # 0.1 TH/MM3 (0-0.2); BASOPHIL % 1.5 % (0.0-2.0); EOSINOPHIL # 0.1 TH/MM3 (0-0.4); EOSINOPHIL % 0.8 % (0.0-4.0); HEMATOCRIT 27.3 % (39.0-51.0); HEMO FLAGS DIFF FINAL; LYMPH % 41.8 % (9.0-44.0); LYMPHOCYTE # 2.8 TH/MM3 (1.0-4.8); MEAN CELL VOLUME 94.7 FL (80.0-100.0); MEAN CORPUSCULAR HEMOGLOBIN 32.6 PG (27.0-34.0); MEAN CORPUSCULAR HGB CONC 34.5 % (32.0-36.0); MONO % 9.3 % (0.0-8.0); NEUT % 46.6 % (16.0-70.0); PLATELET COUNT 157 TH/MM3 (150-450); RED BLOOD COUNT 2.89 MIL/MM3 (4.50-5.90); RED CELL DISTRIBUTION WIDTH 14.9 % (11.6-17.2); WHITE BLOOD COUNT 6.8 TH/MM3 (4.0-11.0)
[2016-08-06 20:44] LABS: CHLORIDE 102 MEQ/L (98-107); POTASSIUM 3.3 MEQ/L (3.5-5.1); SODIUM (NA) 137 MEQ/L (136-145)
[2016-08-06 20:48] LABS: ANION GAP 13 MEQ/L (5-15); BICARBONATE 22.3 MEQ/L (21.0-32.0); BLOOD UREA NITROGEN 7 MG/DL (7-18)
[2016-08-06 20:51] LABS: ALT (GPT) 16 U/L (12-78); AST (GOT) 20 U/L (15-37); GLOMERULAR FILTRATION RATE 110 ML/MIN (>89)
[2016-08-06 20:53] LABS: TOTAL BILIRUBIN ADULT 0.4 MG/DL (0.2-1.0)
[2016-08-06 20:54] LABS: ALKALINE PHOSPHATASE 82 U/L (45-117)
[2016-08-06] MEDS: SODIUM CHLOR 0.9% 1000 ML INJ 1,000 ML IV SCH ×2 (21:00→21:24)
[2016-08-06] MEDS ORDERED: HALOPERIDOL LACTATE 5 MG/ML AMP IM ONE ×2 (21:30→23:15)
[2016-08-06 22:25] VITALS: PULSE 92; RESP 18; O2SAT 97
[2016-08-07 00:11] VITALS: BP 104/52; PULSE 88; RESP 18; O2SAT 97
[2016-08-07 02:34] VITALS: BP 122/68; PULSE 84; RESP 18; O2SAT 97
[2016-08-07 04:16] VITALS: BP 117/62; PULSE 77; RESP 18; O2SAT 97
[2016-08-07 06:10] VITALS: BP 121/66; PULSE 72; RESP 18; O2SAT 97
[2016-08-07 08:05] VITALS: BP 108/67; TEMP 97.2
== END 2016-08-07 09:51 | disposition home or self-care (01) ==
LOC: PHEFT 19:53 → PHED 08-07 09:51
DX: F10.10 Alcohol abuse, uncomplicated (principal); D64.9 Anemia, unspecified; R45.6 Violent behavior; E78.00 Pure hypercholesterolemia, unspecified; F17.200 Nicotine dependence, unspecified, uncomplicated; Z87.39 Personal history of other diseases of the musculoskeletal system and connective tissue; Z86.59 Personal history of other mental and behavioral disorders; Z87.09 Personal history of other diseases of the respiratory system; Z86.69 Personal history of other diseases of the nervous system and sense organs
CPT/HCPCS: 80053; 80307; 85025; 96361; 96365; 96372; 99285; J1630; J3411; J7030

== ENCOUNTER 2016-10-22 12:33 | Emergency (ER) | payer OTHER ==
[2016-10-22 12:39] VITALS: BP 153/84; PULSE 80; RESP 20; TEMP 98.7; O2SAT 96
[2016-10-22] MEDS ORDERED: LIDOCAINE HCL 1% 50 ML VIAL INFIL ONE (12:45)
--- NOTE | 2016-10-22 13:23 | PD ---
Physical Exam Date Seen by Provider: Oct 22, 2016 Time Seen by Provider: 13:22 Narrative 66-year-old male here for a fall. I was asked by my attending to repair a laceration to his forehead. Please refer to his note. Data Data Last Documented VS Vital Signs Date Time Temp Pulse Resp B/P (MAP) Pulse Ox O2 Delivery O2 Flow Rate FiO2 10/22/16 12:39 98.7 80 20 153/84 (107) 96 Orders Orders Wound Care (10/22/16 12:35) Lidocaine 1% Inj (50 Ml) (Xylocaine 1% I (10/22/16 12:45) Ct Brain W/O Iv Contrast(Rout) (10/22/16 12:39) Ct Facial Bones W/O Iv Cont (10/22/16 12:39) Ct Cerv Spine W/O Contrast (10/22/16 12:39) MDM Medical Record Reviewed: Yes Supervised Visit with CAL: No Procedures Procedure Narrative LACERATION LOCATION: Forehead LENGTH: 2 cm x 2 NUMBER OF STITCHES/MARTINE: 6 sutures on left, 5 sutures on right REPAIR: The area of the laceration was prepped with Betadine and sterilely draped. The laceration was infiltrated with 1%Xylocaine. The wound was copiously irrigated and explored without evidence of foreign body, tendon injury or neurovascular injury. The wound was closed using 4-0 Prolene. This was a 1 layer repair. A sterile dressing was applied. The patient was advised to keep the dressing clean and dry. Patient tolerated the procedure well. Scripts No Active Prescriptions or Reported Meds Anton Carter Oct 22, 2016 13:23
[2016-10-22 13:51] VITALS: BP 133/87; PULSE 81; RESP 18; O2SAT 99
--- NOTE | 2016-10-22 13:54 | RADRPT ---
EXAM DATE/TIME: 10/22/2016 13:23 [facility] COMPARISON: CT BRAIN W/O CONTRAST, August 05, 2016, 13:28. INDICATIONS : Trauma. Fall. Forehead laceration. RADIATION DOSE: 10.9 CTDIvol (mGy) MEDICAL HISTORY : Seizures. Chronic obstructive pulmonary disease. SURGICAL HISTORY : None. ENCOUNTER: Initial ACUITY: 1 day PAIN SCALE: 5/10 LOCATION: frontal TECHNIQUE: Multiple contiguous axial images were obtained of the head. Using automated exposure control and adj ustment of the mA and/or kV according to patient size, radiation dose was kept as low as reasonably a chievable to obtain optimal diagnostic quality images. DICOM format image data is available electro nically for review and comparison. FINDINGS: CEREBRUM: The ventricles are normal for age. No evidence of midline shift, mass lesion, hemorrhage or acute in farction. No extra-axial fluid collections are seen. POSTERIOR FOSSA: The cerebellum and brainstem are intact. The 4th ventricle is midline. The cerebellopontine angle i s unremarkable. EXTRACRANIAL: The visualized portion of the orbits is intact. SKULL: The calvaria is intact. Fracture superior nasal spine. CONCLUSION: Intracranial contents unremarkable. Fracture superior nasal spine. Donavon Cox MD FACR on October 22, 2016 at 13:50 Board Certified Radiologist. This report was verified electronically.
--- NOTE | 2016-10-22 13:59 | RADRPT ---
EXAM DATE/TIME: 10/22/2016 13:23 [facility] COMPARISON: CT FACIAL BONES W/O CONTRAST, August 05, 2016, 13:28. INDICATIONS : Trauma. Fall. Forehead laceration. RADIATION DOSE: 25.56 CTDIvol (mGy) MEDICAL HISTORY : Chronic obstructive pulmonary disease. Seizures. SURGICAL HISTORY : None. ENCOUNTER: Initial ACUITY: 1 day PAIN SCORE: 6/10 LOCATION: facial TECHNIQUE: Volumetric scanning of the facial bones was performed. Using automated exposure control and adjustme nt of the mA and/or kV according to patient size, radiation dose was kept as low as reasonably achiev able to obtain optimal diagnostic quality images. DICOM format image data is available electronicall y for review and comparison. FINDINGS: There is a fracture of the superior nasal spine. Inferior nasal spine is intact. The nasal septum is deviated to the right on a chronic basis. Maxillary sinuses are clear. Mandible and maxilla are intact. CONCLUSION: Fracture superior nasal spine. Donavon Cox MD FACR on October 22, 2016 at 13:53 Board Certified Radiologist. This report was verified electronically.
--- NOTE | 2016-10-22 14:02 | RADRPT ---
EXAM DATE/TIME: 10/22/2016 13:23 [facility] COMPARISON: CT CERVICAL SPINE W/O CONTRAST, July 14, 2016, 21:33. INDICATIONS : Trauma. Fall. Forehead laceration. RADIATION DOSE: 25.30 CTDIvol (mGy) MEDICAL HISTORY : Chronic obstructive pulmonary disease. Seizures. SURGICAL HISTORY : Fusion, cervical. ENCOUNTER: Initial ACUITY: 1 day PAIN SCALE: 0/10 LOCATION: neck TECHNIQUE: Volumetric scanning of the cervical spine was performed. Multiplanar reconstructions in the sagittal, coronal and oblique axial planes were performed. Using automated exposure control and adjustment o f the mA and/or kV according to patient size, radiation dose was kept as low as reasonably achievable to obtain optimal diagnostic quality images. DICOM format image data is available electronically f or review and comparison. FINDINGS: Patient is status post anterior cervical fusion at C3-C4. There is mild interspace ridging at C2-C3. C3-C4: Alignment is anatomic at C3-C4. C4-C5: Moderate uncinate riding is present with mild bilateral neural foramina encroachment. C5-C6: Moderate uncinate ridging is present with bilateral neural foramina encroachment, mild spinal stenosi s. . C6-C7: There is bilateral neural foramina encroachment worse on the right than the left. Moderate uncinate ridging is present. C7-T1 is unremarkable. CONCLUSION: Degenerative changes as described above. Fracture is not appreciated. Donavon Cox MD FACR on October 22, 2016 at 13:53 Board Certified Radiologist. This report was verified electronically.
--- NOTE | 2016-10-22 14:17 | PD ---
HPI Chief Complaint: Fall Time Seen by Provider: 12:39 Travel History International Travel<30 days: No Contact w/Intl Traveler<30days: No Traveled to known affect area: No History of Present Illness HPI 66-year-old male had a fall at home and hurt his face. He thinks he fell around 7:00. He does drink a fair amount. He was brought by paramedics. He says his last drink was last night. Patient says he broke his nose many years ago but thinks he may have refractured PFSH Past Medical History Hx Anticoagulant Therapy: No Arthritis: Yes Asthma: No Autoimmune Disease: No Blood Disorders: No Anxiety: No Depression: Yes Heart Rhythm Problems: No Cancer: No Cardiovascular Problems: No High Cholesterol: Yes Chemotherapy: No Chest Pain: No Congestive Heart Failure: No COPD: Yes Cerebrovascular Accident: No Diabetes: No Diminished Hearing: No Endocrine: No Gastrointestinal Disorders: No GERD: No Glaucoma: No Genitourinary: No Headaches: Yes Hepatitis: Yes Hiatal Hernia: No Hypertension: No Immune Disorder: No Implanted Vascular Access Dvce: No Kidney Stones: No Musculoskeletal: Yes (CHRONIC SHOULDER/ROTATOR CUFF PAIN) Neurologic: Yes (OLD SKULL FX AND CHILD) Psychiatric: Yes (DEPRESSION) Reproductive: No Respiratory: No Immunizations Current: Yes Migraines: No Myocardial Infarction: No Radiation Therapy: No Renal Failure: No Seizures: Yes Sickle Cell Disease: No Sleep Apnea: No Thyroid Disease: No Ulcer: No Past Surgical History Abdominal Surgery: No AICD: No Appendectomy: No Arteriovenous Shunt: No Body Medical Devices: "METAL LEFT LEG " Cardiac Surgery: No Cholecystectomy: No Ear Surgery: No Endocrine Surgery: No Eye Surgery: Yes (CATARACT SURGERY BILATERALLY) Genitourinary Surgery: No Gynecologic Surgery: No Hysterectomy: No Insulin Pump: No Joint Replacement: No Neurologic Surgery: No Oral Surgery: No Pacemaker: No Thoracic Surgery: No Tonsillectomy: Yes Social History Alcohol Use: Yes (" MUCH I CAN GET") Tobacco Use: Yes (1 PACK PER DAY) Substance Use: Yes Allergies-Medications (Allergen,Severity, Reaction): Coded Allergies: No Known Allergies (Verified , 10/22/16) according to mother Reported Meds & Prescriptions Reported Meds & Active Scripts Active No Active Prescriptions or Reported Medications Review of Systems General / Constitutional: No: Fever, Chills Eyes: No: Diploplia HENT: Positive: Headaches Cardiovascular: No: Chest Pain or Discomfort, Palpitations Respiratory: No: Cough, Shortness of Breath Gastrointestinal: No: Nausea, Vomiting Genitourinary: No: Urgency, Frequency Skin: No Rash Neurologic: Positive: Tremor, No: Syncope Hematologic/Lymphatic: No: Easy Bruising Physical Exam Narrative GENERAL: Well-developed male SKIN: Focused skin assessment warm/dry. HEAD: Normocephalic. There is a chance centimeter laceration across the lower forehead between the eyes EYES: Pupils equal and round. No scleral icterus. No injection or drainage. ENT: No nasal bleeding or discharge. There is deformity of the nose and some tenderness Mucous membranes pink and moist. NECK: Trachea midline. No JVD. CARDIOVASCULAR: Regular rate and rhythm. No murmur appreciated. RESPIRATORY: No accessory muscle use. Clear to auscultation. Breath sounds equal bilaterally. GASTROINTESTINAL: Abdomen soft, non-tender, nondistended. Hepatic and splenic margins not palpable. MUSCULOSKELETAL: No obvious deformities. No clubbing. No cyanosis. No edema. NEUROLOGICAL: Awake and alert. No obvious cranial nerve deficits. Motor grossly within normal limits. Normal speech. PSYCHIATRIC: Appropriate mood and affect; insight and judgment normal. Data Data Last Documented VS Vital Signs Date Time Temp Pulse Resp B/P (MAP) Pulse Ox O2 Delivery O2 Flow Rate FiO2 10/22/16 13:51 81 18 133/87 (102) 99 10/22/16 12:39 98.7 Orders Orders Wound Care (10/22/16 12:35) Lidocaine 1% Inj (50 Ml) (Xylocaine 1% I (10/22/16 12:45) Ct Brain W/O Iv Contrast(Rout) (10/22/16 12:39) Ct Facial Bones W/O Iv Cont (10/22/16 12:39) Ct Cerv Spine W/O Contrast (10/22/16 12:39) MDM Medical Decision Making Medical Screen Exam Complete: Yes Emergency Medical Condition: Yes Medical Record Reviewed: Yes Differential Diagnosis Differential includes subdural, skull fracture, nasal fracture Narrative Course Laceration has been sutured. CT of the head is negative. CT of the nasal bones shows acute fracture and chronic deformity. CT of the neck shows extensive degenerative changes and previous fusion Diagnosis Primary Impression: Forehead laceration Additional Instructions: Suture removal 7 days Scripts No Active Prescriptions or Reported Meds Disposition: DISCHARGE HOME Condition: Stable Cachorro Biswas MD Oct 22, 2016 14:17
[2016-10-22 14:47] VITALS: BP 120/76; PULSE 88; RESP 20; O2SAT 98
== END 2016-10-22 16:02 | disposition home or self-care (01) ==
LOC: PHED 12:33
DX: S01.81XA Laceration without foreign body of other part of head, initial encounter (principal); S02.2XXA Fracture of nasal bones, initial encounter for closed fracture; E78.00 Pure hypercholesterolemia, unspecified; F17.200 Nicotine dependence, unspecified, uncomplicated; Z87.39 Personal history of other diseases of the musculoskeletal system and connective tissue; Z86.59 Personal history of other mental and behavioral disorders; Z87.09 Personal history of other diseases of the respiratory system; Z86.69 Personal history of other diseases of the nervous system and sense organs; W19.XXXA Unspecified fall, initial encounter; Y92.009 Unspecified place in unspecified non-institutional (private) residence as the place of occurrence of the external cause
CPT/HCPCS: 12013; 70450; 70486; 72125

== ENCOUNTER 2017-05-28 16:46 | Emergency (ER) | payer OTHER ==
[~2017-05-28] VITALS: Ht 193 cm; Wt 70.0 kg
[2017-05-28] MEDS ORDERED: SODIUM CHLOR 0.9% 1000 ML INJ 1,000 ML IV SCH (17:03)
--- NOTE | 2017-05-28 17:06 | PD ---
HPI Chief Complaint: Fall Time Seen by Provider: 17:02 Travel History International Travel<30 days: No Contact w/Intl Traveler<30days: No History of Present Illness HPI 67-year-old male presents to the ED via EMS for evaluation after fall from his wheelchair. Patient states he does not remember the event. On presentation he complains of headache and 10/10 pain in his nose. He denies dizziness, vision changes, breathing difficulties, chest pain, palpitations, shortness of breath, abdominal pain, nausea, vomiting, pain in the extremities. He does not take blood thinners. He endorses drinking alcohol last night, unsure if he consumed any alcohol today. PFSH Past Medical History Hx Anticoagulant Therapy: No Arthritis: Yes Asthma: No Autoimmune Disease: No Blood Disorders: No Anxiety: No Depression: Yes Heart Rhythm Problems: No Cancer: No Cardiovascular Problems: No High Cholesterol: Yes Chemotherapy: No Chest Pain: No Congestive Heart Failure: No COPD: Yes Cerebrovascular Accident: No Diabetes: No Diminished Hearing: No Endocrine: No Gastrointestinal Disorders: No GERD: No Glaucoma: No Genitourinary: No Headaches: Yes Hepatitis: Yes Hiatal Hernia: No Hypertension: No Immune Disorder: No Implanted Vascular Access Dvce: No Kidney Stones: No Musculoskeletal: Yes (CHRONIC SHOULDER/ROTATOR CUFF PAIN) Neurologic: Yes (OLD SKULL FX AND CHILD) Psychiatric: Yes (DEPRESSION) Reproductive: No Respiratory: No Immunizations Current: Yes Migraines: No Myocardial Infarction: No Radiation Therapy: No Renal Failure: No Seizures: Yes Sickle Cell Disease: No Sleep Apnea: No Thyroid Disease: No Ulcer: No Past Surgical History Abdominal Surgery: No AICD: No Appendectomy: No Arteriovenous Shunt: No Body Medical Devices: "METAL LEFT LEG " Cardiac Surgery: No Cholecystectomy: No Ear Surgery: No Endocrine Surgery: No Eye Surgery: Yes (CATARACT SURGERY BILATERALLY) Genitourinary Surgery: No Gynecologic Surgery: No Hysterectomy: No Insulin Pump: No Joint Replacement: No Neurologic Surgery: No Oral Surgery: No Pacemaker: No Thoracic Surgery: No Tonsillectomy: Yes Social History Alcohol Use: Yes (" MUCH I CAN GET") Tobacco Use: Yes (1 PACK PER DAY) Substance Use: Yes Allergies-Medications (Allergen,Severity, Reaction): Coded Allergies: No Known Allergies (Verified Allergy, Unknown, 05/28/17) according to mother Reported Meds & Prescriptions Reported Meds & Active Scripts Active Keflex (Cephalexin) 500 Mg Cap 500 Mg PO Q12H 7 Days Review of Systems Except as stated in HPI: all other systems reviewed are Neg Physical Exam Narrative GENERAL: Well-nourished, well-developed white male in no acute distress. On a backboard, wearing a c-collar. SKIN: Warm and dry. 2 large lacerations of the forehead and anterior scalp. Abrasions of bilateral anterior knees. Thorough evaluation reveals no other edema, ecchymosis, abrasion, or laceration of the skin. HEAD: Normocephalic. Atraumatic. No raccoon eyes or ontiveros sign. No tenderness to palpation of the skull. No bony step-offs. No malocclusion of the teeth. EYES: No scleral icterus. No injection or drainage. P pupils 1-2 mm bilaterally. EOMI. ENT: Pearly mejía tympanic membranes bilaterally. Nasal mucosa is moist. Deviation of the nose towards the left. No signs of septal hematoma. Oropharynx without erythema, edema or exudate. NECK: Supple, trachea midline. No JVD or lymphadenopathy. No midline tenderness to palpation. Patient retains full, active, painless range of motion of the neck. CARDIOVASCULAR: Regular rate and rhythm without murmurs, gallops, or rubs. 2+ DP and radial pulses bilaterally. RESPIRATORY: Breath sounds clear and equal bilaterally. No accessory muscle use. GASTROINTESTINAL: Abdomen soft, non-tender, nondistended. + Bowel sounds MUSCULOSKELETAL: No cyanosis, or edema. No tenderness to palpation or limitations to range of motion of the joints of the upper and lower extremities bilaterally. No pain elicited with pelvic rocking. NEUROLOGICAL: Awake and alert. Cranial nerves II through XII intact. Motor and sensory grossly within normal limits. 5/5 muscle strength in all muscle groups. Normal speech. BACK: Nontender without obvious deformity. No CVA tenderness. No midline tenderness. Data Data Last Documented VS Vital Signs Date Time Temp Pulse Resp B/P (MAP) Pulse Ox O2 Delivery O2 Flow Rate FiO2 05/28/17 17:07 98.3 89 20 132/79 (96) [address] Brain W/O Iv Contrast(Rout) (05/28/17 17:03) Ct Cerv Spine W/O Contrast (05/28/17 17:03) Ct Facial Bones W/O Iv Cont (05/28/17 17:03) Complete Blood Count With Diff (05/28/17 17:03) Comprehensive Metabolic Panel (05/28/17 17:03) Prothrombin Time / Inr (Pt) (05/28/17 17:03) Act Partial Throm Time (Ptt) (05/28/17 17:03) Urinalysis - C+S If Indicated (05/28/17 17:03) Iv Access Insert/Monitor (05/28/17 17:03) Ecg Monitoring (05/28/17 17:) Oximetry (05/28/17 17:) Sodium Chlor 0.9% 1000 Ml Inj (Ns 1000 M (05/28/17 17:03) Sodium Chloride 0.9% Flush (Ns Flush) (05/28/17 17:15) Alcohol (Ethanol) (05/28/17 17:03) Drug Screen, Random Urine (05/28/17 17:03) Tetanus/Diphtheria Tox Adult (Tetanus/Di (05/28/17 17:15) Lidocai-Epi 1%-1:100,000 Inj (Xylocaine- (05/28/17 18:00) Lidocai-Epi 1%-1:100,000 Inj (Xylocaine- (05/28/17 18:30) Urine Culture (05/28/17 19:35) Cephalexin (Keflex) (05/28/17 20:30) Ed Discharge Order (05/28/17 20:29) Labs Laboratory Tests Test 05/28/17 17:25 05/28/17 19:35 White Blood Count 11.1 TH/MM3 Red Blood Count 3.94 MIL/MM3 Hemoglobin 14.1 GM/DL Hematocrit 38.0 % Mean Corpuscular Volume 96.5 FL Mean Corpuscular Hemoglobin 35.7 PG Mean Corpuscular Hemoglobin Concent 37.0 % Red Cell Distribution Width 16.0 % Platelet Count 141 TH/MM3 Mean Platelet Volume 7.9 FL Neutrophils (%) (Auto) 75.7 % Lymphocytes (%) (Auto) 11.4 % Monocytes (%) (Auto) 12.5 % Eosinophils (%) (Auto) 0.1 % Basophils (%) (Auto) 0.3 % Neutrophils # (Auto) 8.4 TH/MM3 Lymphocytes # (Auto) 1.3 TH/MM3 Monocytes # (Auto) 1.4 TH/MM3 Eosinophils # (Auto) 0.0 TH/MM3 Basophils # (Auto) 0.0 TH/MM3 CBC Comment AUTO DIFF Differential Comment AUTO DIFF CONFIRMED Platelet Estimate LOW Platelet Morphology Comment NORMAL Prothrombin Time 10.0 SEC Prothromb Time International Ratio 1.0 RATIO Activated Partial Thromboplast Time 26.7 SEC Blood Urea Nitrogen 7 MG/DL Creatinine 0.76 MG/DL Random Glucose 132 MG/DL Total Protein 7.6 GM/DL Albumin 3.3 GM/DL Calcium Level 8.4 MG/DL Alkaline Phosphatase 84 U/L Aspartate Amino Transf (AST/SGOT) 20 U/L Alanine Aminotransferase (ALT/SGPT) 14 U/L Total Bilirubin 0.8 MG/DL Sodium Level 132 MEQ/L Potassium Level 3.8 MEQ/L Chloride Level 99 MEQ/L Carbon Dioxide Level 24.3 MEQ/L Anion Gap 9 MEQ/L Estimat Glomerular Filtration Rate 103 ML/MIN Ethyl Alcohol Level LESS THAN 3 MG/DL Urine Color YELLOW Urine Turbidity HAZY Urine pH 7.0 Urine Specific [place] 1.012 Urine Protein TRACE mg/dL Urine Glucose (UA) NEG mg/dL Urine Ketones NEG mg/dL Urine Occult Blood TRACE Urine Nitrite POS Urine Bilirubin NEG Urine Urobilinogen LESS THAN 2.0 MG/DL Urine Leukocyte Esterase LARGE Urine RBC 3 /hpf Urine WBC 67 /hpf Urine WBC Clumps OCC Urine Squamous Epithelial Cells 1 /hpf Urine Renal Epithelial Cells <1 /hpf Urine Bacteria MANY /hpf Urine Hyaline Casts 2 /lpf Urine Mucus FEW /lpf Microscopic Urinalysis Comment CULTURE INDICATED Urine Opiates Screen NEG Urine Barbiturates Screen NEG Urine Amphetamines Screen NEG Urine Benzodiazepines Screen NEG Urine Cocaine Screen NEG Urine Cannabinoids Screen NEG [facility] Medical Decision Making Medical Screen Exam Complete: Yes Emergency Medical Condition: Yes Differential Diagnosis Fall versus contusion versus laceration versus nasal fracture versus intoxication versus need for tetanus immunization versus other Narrative Course 67-year-old male presents to the ED via EMS for evaluation after fall from his wheelchair. Patient states he does not remember the event. On presentation he complains of headache and 10/10 pain in his nose. He denies dizziness, vision changes, breathing difficulties, chest pain, palpitations, shortness of breath, abdominal pain, nausea, vomiting, pain in the extremities. He does not take blood thinners. He endorses drinking alcohol last night, unsure if he consumed any alcohol today. Vitals reviewed. Patient arrives in the c-collar on a backboard. He was cleared from the backboard. On exam he has 2 lacerations of the forehead deviation of the nose without signs of septal hematoma, abrasions on bilateral knees. The exam is otherwise unremarkable. Tetanus immunization was updated. Laceration repair 2 was performed. Please see my procedure note for details. CTs of the brain, neck and facial bones all without acute abnormalities. No concerning abnormalities of the CBC, CMP, coags. Alcohol less than 3. Tox screen negative. UA hazy, nitrite positive, 67 WBCs, occasional WBC clumps. Many bacteria. Culture indicated. I reviewed the patient's record, no urine culture available. He is prescribed Keflex 500 mg twice daily 7 days, first dose administered in the ED. I discussed the results with of the workup with the patient. He states that he has home health care is agreeable to discharge. He is stable and discharged home. Procedures Procedure Narrative LACERATION LOCATION: Inferior forehead LENGTH: 3 cm NUMBER OF STITCHES/MARTINE: 3 REPAIR: The area of the laceration was prepped with Betadine and sterilely draped. The laceration was infiltrated with 1% lidocaine. The wound was copiously irrigated and explored without evidence of foreign body, tendon injury or neurovascular injury. The wound was closed using 4-0 Prolene. This was a single layer repair. A sterile dressing was applied. The patient was advised to keep the dressing clean and dry. Patient tolerated the procedure well. LACERATION LOCATION: Superior forehead LENGTH: 4 cm NUMBER OF STITCHES/MARTINE: 5 REPAIR: The area of the laceration was prepped with Betadine and sterilely draped. The laceration was infiltrated with 1% lidocaine with epi. The wound was copiously irrigated and explored without evidence of foreign body, tendon injury or neurovascular injury. The wound was closed using 4-0 Prolene. This was a single layer repair. A sterile dressing was applied. The patient was advised to keep the dressing clean and dry. Patient tolerated the procedure well. Diagnosis Primary Impression: Fall Qualified Codes: W19.XXXA - Unspecified fall, initial encounter Additional Impressions: Laceration of forehead without complication Qualified Codes: S01.81XA - Laceration without foreign body of other part of head, initial encounter Urinary tract infection Qualified Codes: N39.0 - Urinary tract infection, site not specified Referrals: Primary Care Physician Additional Instructions: Rest, hydrate. Keep your wounds clean, dry. Monitor for signs of infection as discussed. Suture removal in 5-7 days. Take antibiotics as prescribed until every pill is gone. Follow with the primary care provider Return to the ED for worsening symptoms or any urgent or emergent medical condition. Scripts Cephalexin (Keflex) 500 Mg Cap 500 MG PO Q12H for Infection for 7 Days, #14 CAP 0 Refills Prov: Milad Mercer MD 05/28/17 Disposition: 01 DISCHARGE HOME Condition: Stable Jessica Sher May 28, 2017 17:06
[2017-05-28 17:07] VITALS: BP 132/79; PULSE 89; RESP 20; TEMP 98.3; O2SAT 93
[2017-05-28] MEDS ORDERED: SODIUM CHLORIDE 0.9% FLUSH 10 ML FLUSH IV FLUSH PRN (17:15)
[2017-05-28] MEDS ORDERED: TETANUS/DIPHTHERIA TOXOID ADULT 0.5 ML VIAL IM ONE (17:15)
[2017-05-28 17:41] LABS: AUTOMATED NEUTROPHIL # 8.4 TH/MM3 (1.8-7.7); BASOPHIL % 0.3 % (0.0-2.0); EOSINOPHIL % 0.1 % (0.0-4.0); HEMOGLOBIN 14.1 GM/DL (13.0-17.0); LYMPH % 11.4 % (9.0-44.0); LYMPHOCYTE # 1.3 TH/MM3 (1.0-4.8); MEAN CELL VOLUME 96.5 FL (80.0-100.0); MEAN CORPUSCULAR HEMOGLOBIN 35.7 PG (27.0-34.0); MEAN PLATELET VOLUME 7.9 FL (7.0-11.0); MONO % 12.5 % (0.0-8.0); MONOCYTE # 1.4 TH/MM3 (0-0.9); NEUT % 75.7 % (16.0-70.0); PLATELET COUNT 141 TH/MM3 (150-450); RED BLOOD COUNT 3.94 MIL/MM3 (4.50-5.90); WHITE BLOOD COUNT 11.1 TH/MM3 (4.0-11.0)
[2017-05-28] MEDS ORDERED: LIDOCAINE 1%/EPINEPHrine 1:100,000 SOLN 20 ML VIAL INFIL ONE (18:00)
[2017-05-28 18:01] LABS: ALBUMIN 3.3 GM/DL (3.4-5.0); ALT (GPT) 14 U/L (12-78); AST (GOT) 20 U/L (15-37); BICARBONATE 24.3 MEQ/L (21.0-32.0); BLOOD UREA NITROGEN 7 MG/DL (7-18); CALCIUM 8.4 MG/DL (8.5-10.1); CHLORIDE 99 MEQ/L (98-107); CREATININE 0.76 MG/DL (0.60-1.30); GLOMERULAR FILTRATION RATE 103 ML/MIN (>89); GLUCOSE,RANDOM 132 MG/DL (74-106); SODIUM (NA) 132 MEQ/L (136-145)
[2017-05-28 18:03] LABS: ALKALINE PHOSPHATASE 84 U/L (45-117); TOTAL BILIRUBIN ADULT 0.8 MG/DL (0.2-1.0); TOTAL PROTEIN 7.6 GM/DL (6.4-8.2)
--- NOTE | 2017-05-28 18:17 | RADRPT ---
EXAM DATE/TIME: 05/28/2017 18:04 [facility] COMPARISON: No previous studies available for comparison. INDICATIONS : TRauma, fell out of wheelchair, hit head. RADIATION DOSE: 66.34 CTDIvol (mGy) MEDICAL HISTORY : Seizures. Hepatitis C. skull fracture SURGICAL HISTORY : c-spine fusion ENCOUNTER: Initial ACUITY: 1 day PAIN SCALE: 3/10 LOCATION: cranial TECHNIQUE: Multiple contiguous axial images were obtained of the head. Using automated exposure control and adj ustment of the mA and/or kV according to patient size, radiation dose was kept as low as reasonably a chievable to obtain optimal diagnostic quality images. DICOM format image data is available electro nically for review and comparison. FINDINGS: CEREBRUM: Atrophy and ventriculomegaly again noted, not changed.. No evidence of midline shift, mass lesion, h emorrhage or acute infarction. No extra-axial fluid collections are seen. There is chronic low-atten uation in the periventricular white matter. POSTERIOR FOSSA: The cerebellum and brainstem are intact. The 4th ventricle is midline. The cerebellopontine angle i s unremarkable. EXTRACRANIAL: There is mucoperiosteal thickening of the left maxillary air cell. There is chronic fracturing of the nose. SKULL: The calvaria is intact. No evidence of skull fracture. CONCLUSION: No bleed or other acute intracranial abnormality. Chronic white matter changes and ventriculomegaly u nchanged. Miguel Pena MD on May 28, 2017 at 18:14 Board Certified Radiologist. This report was verified electronically.
--- NOTE | 2017-05-28 18:23 | RADRPT ---
EXAM DATE/TIME: 05/28/2017 18:04 [facility] COMPARISON: No previous studies available for comparison. INDICATIONS : TRauma, fell out of wheelchair. RADIATION DOSE: 18.40 CTDIvol (mGy) MEDICAL HISTORY : Seizures. Hepatitis C. skull fracture SURGICAL HISTORY : c-spine fusion ENCOUNTER: Initial ACUITY: 1 day PAIN SCALE: 3/10 LOCATION: neck TECHNIQUE: Volumetric scanning of the cervical spine was performed. Multiplanar reconstructions in the sagittal, coronal and oblique axial planes were performed. Using automated exposure control and adjustment o f the mA and/or kV according to patient size, radiation dose was kept as low as reasonably achievable to obtain optimal diagnostic quality images. DICOM format image data is available electronically f or review and comparison. FINDINGS: There is no fracture or subluxation of the cervical spine. Paravertebral soft tissues are within norm al limits. Osteoarthritis with chronic hypertrophic bone again seen anteriorly at C1/C2. There is moderate uncovertebral and facet osteoarthritis at essentially all levels. There is moderate to severe disc space narrowing at C6/C7 and mild disc space narrowing at the other levels. Patient h as had previous discectomy and fusion procedure with interbody and anterior instrumentation at C3/C4, solidly fused in normal alignment. CONCLUSION: Intact cervical spine. Surgical and degenerative changes as above. Miguel Pena MD on May 28, 2017 at 18:19 Board Certified Radiologist. This report was verified electronically.
[2017-05-28] MEDS ORDERED: LIDOCAINE 1%/EPINEPHrine 1:100,000 SOLN 30 ML VIAL INFIL ONE (18:30)
--- NOTE | 2017-05-28 18:38 | RADRPT ---
EXAM DATE/TIME: 05/28/2017 18:04 [facility] COMPARISON: CT FACIAL BONES W/O CONTRAST, October 22, 2016, 13:23. INDICATIONS : TRauma, fell out of wheelchair. RADIATION DOSE: 21.96 CTDIvol (mGy) MEDICAL HISTORY : Seizures. Hepatitis C. skull fracture SURGICAL HISTORY : c-spine fusion ENCOUNTER: Initial ACUITY: 1 day PAIN SCORE: 3/10 LOCATION: facial TECHNIQUE: Volumetric scanning of the facial bones was performed. Using automated exposure control and adjustme nt of the mA and/or kV according to patient size, radiation dose was kept as low as reasonably achiev able to obtain optimal diagnostic quality images. DICOM format image data is available electronicall y for review and comparison. FINDINGS: ORBITS: The orbital and infraorbital osseous structures are intact. The retroconal structures have a normal configuration. No radiopaque foreign bodies are seen. NASAL BONE: Old comminuted facial fracture ZYGOMATIC ARCHES: Symmetric without evidence of fracture. SINUSES: Severe mucoperiosteal thickening of the left maxillary air cell. There is moderate patchy mucoperiost eal thickening of the ethmoid air cells. No blood seen in the paranasal sinuses. NASAL CAVITY: The nasal septum is intact and midline. The lacrimal ducts are intact. SOFT TISSUES: Pre-frontal scalp contusion and laceration. INTRACRANIAL: No intracranial air seen. CRIBIFORM PLATE: Grossly intact. CONCLUSION: 1. No acute facial fracture. 2. Old fracture of the nose. 3. Frontal scalp contusion and laceration. 4. Chronic sinus disease. Miguel Pena MD on May 28, 2017 at 18:34 Board Certified Radiologist. This report was verified electronically.
[2017-05-28 20:24] LABS: BACTERIA, URINE MANY /hpf; BILIRUBIN, URINE NEG (NEG); BLOOD, URINE TRACE (NEG); GLUCOSE,URINE NEG (NEG); HYALINE CAST, URINE 2 /lpf (RARE); KETONE, URINE NEG (NEG); MUCUS URINE FEW /lpf (OCC); NITRITE,URINE POS (NEG); RENAL EPITHELIAL CELLS <1 /hpf; SQUAMOUS EPITHELIAL CELL URINE 1 /hpf (0-5); URINE COLOR YELLOW (YELLW/STRAW); URINE LEUKOCYTE ESTERASE LARGE (NEG); WHITE BLOOD CELL CLUMPS OCC
[2017-05-28] MEDS ORDERED: CEPH-460 PO (20:29)
[2017-05-28] MEDS ORDERED: CEPHALEXIN MONOHYDRATE 500 MG CAP PO ONE (20:30)
== END 2017-05-28 22:28 | disposition home or self-care (01) ==
LOC: NEPC 16:46
DX: S01.81XA Laceration without foreign body of other part of head, initial encounter (principal); N39.0 Urinary tract infection, site not specified; B96.89 Other specified bacterial agents as the cause of diseases classified elsewhere; W05.0XXA Fall from non-moving wheelchair, initial encounter; Z23 Encounter for immunization; E78.00 Pure hypercholesterolemia, unspecified; J44.9 Chronic obstructive pulmonary disease, unspecified; B19.20 Unspecified viral hepatitis C without hepatic coma; F17.210 Nicotine dependence, cigarettes, uncomplicated; F32.9 Major depressive disorder, single episode, unspecified
CPT/HCPCS: 12014; 70450; 70486; 72125; 80053; 80307; 81001; 85025; 85610; 85730; 87077; 87086; 87186; 90471; 90714; 96360; 99284; J7030

== ENCOUNTER 2017-06-24 15:52 | Emergency (ER) | payer OTHER ==
[~2017-06-24] VITALS: Ht 195.6 cm; Wt 82.0 kg
[~2017-06-24 15:52] MED LIST changes: +CEPH-460 PO; -DOCU1CAP39 PO; -LISI5 PO; -LORTA5 PO; -NICO21T TD; -PRED10 PO; -THIA100T PO
--- NOTE | 2017-06-24 16:23 | PD ---
HPI . Valadez Act Chief Complaint: Psychiatric Time Seen by Provider: 16:16 Travel History International Travel<30 days: No Contact w/Intl Traveler<30days: No History of Present Illness HPI This patient is brought to us by [facility] as a Valadez Act. The medics who brought him in is very familiar with him. She states that she has been seeing him regularly for 12 years. He is a local drunk. He was found in the road in his wheelchair naked. He told the police that he wanted to put a bullet in his head and . They subsequently enacted a Valadez Act. The Valadez Act further states that his home is unkempt. They report urine throughout the house. The medic reports that she will contact Adult Protective Services. The patient reports that he drinks every day. He will not say how much she has had to drink today. He has no complaints. PFSH Past Medical History Hx Anticoagulant Therapy: No Arthritis: Yes Asthma: No Autoimmune Disease: No Blood Disorders: No Anxiety: No Depression: Yes Heart Rhythm Problems: No Cancer: No Cardiovascular Problems: No High Cholesterol: Yes Chemotherapy: No Chest Pain: No Congestive Heart Failure: No COPD: Yes Cerebrovascular Accident: No Diabetes: No Diminished Hearing: No Endocrine: No Gastrointestinal Disorders: No GERD: No Glaucoma: No Genitourinary: No Headaches: Yes Hepatitis: Yes Hiatal Hernia: No Hypertension: No Immune Disorder: No Implanted Vascular Access Dvce: No Kidney Stones: No Musculoskeletal: Yes (CHRONIC SHOULDER/ROTATOR CUFF PAIN) Neurologic: Yes (OLD SKULL FX AND CHILD) Psychiatric: Yes (DEPRESSION) Reproductive: No Respiratory: No Immunizations Current: Yes Migraines: No Myocardial Infarction: No Radiation Therapy: No Renal Failure: No Seizures: Yes Sickle Cell Disease: No Sleep Apnea: No Thyroid Disease: No Ulcer: No Past Surgical History Abdominal Surgery: No AICD: No Appendectomy: No Arteriovenous Shunt: No Body Medical Devices: "METAL LEFT LEG " Cardiac Surgery: No Cholecystectomy: No Ear Surgery: No Endocrine Surgery: No Eye Surgery: Yes (CATARACT SURGERY BILATERALLY) Genitourinary Surgery: No Gynecologic Surgery: No Hysterectomy: No Insulin Pump: No Joint Replacement: No Neurologic Surgery: No Oral Surgery: No Pacemaker: No Thoracic Surgery: No Tonsillectomy: Yes Social History Alcohol Use: Yes Tobacco Use: Yes (1 PACK PER DAY) Substance Use: Yes Allergies-Medications (Allergen,Severity, Reaction): Coded Allergies: No Known Allergies (Verified Allergy, Unknown, 06/24/17) according to mother Reported Meds & Prescriptions Reported Meds & Active Scripts Active No Active Prescriptions or Reported Medications Review of Systems Except as stated in HPI: all other systems reviewed are Neg Neurologic: Positive: Slurred Speech Psychiatric: Positive: Substance Abuse Physical Exam Narrative GENERAL: Awake and alert and in no acute distress. Disheveled. SKIN: Warm and dry. He has sutures in his forehead and on top of his head. The lacerations are well-healed. HEAD: Normocephalic/atraumatic. EYES: Pupils are equal. Extraocular movements are intact. ENT: Edentulous. Smells heavily of alcohol. NECK: Normal range of motion. CARDIOVASCULAR: Regular rate and rhythm. RESPIRATORY: Nonlabored respirations. MUSCULOSKELETAL: Atraumatic. NEUROLOGICAL: Nonfocal. PSYCHIATRIC: Appropriate mood and affect. Intoxicated. Data Data Last Documented VS Vital Signs Date Time Temp Pulse Resp B/P (MAP) Pulse Ox O2 Delivery O2 Flow Rate FiO2 06/24/17 16:26 97.6 71 16 128/64 (85) 95 Orders Orders Complete Blood Count With Diff (06/24/17 16:16) Comprehensive Metabolic Panel (06/24/17 16:16) Thyroid Stimulating Hormone (06/24/17 16:16) Psych Screen (06/24/17 16:16) Drug Screen, Random Urine (06/24/17 16:16) Remove Sutures (06/24/17 16:16) MDM Medical Decision Making Medical Screen Exam Complete: Yes Emergency Medical Condition: Yes Differential Diagnosis Differential diagnosis of altered mental status includes but is not limited to infection, electrolyte abnormality, neurological event, intoxication Narrative Course This is an intoxicated patient who is brought to us as a Valadez Act because he was in his wheelchair threatening to put a bullet in his head. Medical clearance evaluation has been ordered. I suspect that we will be able to lift his Valadez Act once he alexandria up. Diagnosis Primary Impression: Acute alcohol intoxication Qualified Codes: F10.929 - Alcohol use, unspecified with intoxication, unspecified Scripts No Active Prescriptions or Reported Meds Condition: Stable Geovanna Ferrari MD June 24, 2017 16:23
[2017-06-24 16:26] VITALS: BP 128/64; PULSE 71; RESP 16; TEMP 97.6; O2SAT 95
[2017-06-24 17:29] LABS: AUTOMATED NEUTROPHIL # 1.9 TH/MM3 (1.8-7.7); BASOPHIL % 0.5 % (0.0-2.0); EOSINOPHIL # 0.1 TH/MM3 (0-0.4); EOSINOPHIL % 2.3 % (0.0-4.0); HEMATOCRIT 39.8 % (39.0-51.0); HEMOGLOBIN 13.7 GM/DL (13.0-17.0); LYMPH % 48.9 % (9.0-44.0); LYMPHOCYTE # 2.5 TH/MM3 (1.0-4.8); MEAN CELL VOLUME 99.1 FL (80.0-100.0); MEAN CORPUSCULAR HEMOGLOBIN 34.2 PG (27.0-34.0); MEAN CORPUSCULAR HGB CONC 34.5 % (32.0-36.0); MEAN PLATELET VOLUME 7.6 FL (7.0-11.0); MONO % 12.7 % (0.0-8.0); MONOCYTE # 0.7 TH/MM3 (0-0.9); NEUT % 35.6 % (16.0-70.0); PLATELET COUNT 141 TH/MM3 (150-450); RED BLOOD COUNT 4.02 MIL/MM3 (4.50-5.90); RED CELL DISTRIBUTION WIDTH 15.1 % (11.6-17.2); WHITE BLOOD COUNT 5.2 TH/MM3 (4.0-11.0)
[2017-06-24] MEDS ORDERED: chlordiazePOXIDE 25 MG CAP PO ONE (17:30)
[2017-06-24] MEDS ORDERED: LORazepam 2 MG/ML VIAL IM ONE (17:30)
[2017-06-24 17:54] LABS: ALKALINE PHOSPHATASE 63 U/L (45-117); TOTAL PROTEIN 7.1 GM/DL (6.4-8.2)
[2017-06-24 17:56] LABS: BLOOD UREA NITROGEN 3 MG/DL (7-18); CREATININE 0.55 MG/DL (0.60-1.30); GLOMERULAR FILTRATION RATE 149 ML/MIN (>89); GLUCOSE,RANDOM 83 MG/DL (74-106); TOTAL BILIRUBIN ADULT 0.4 MG/DL (0.2-1.0)
[2017-06-24 17:57] LABS: ALBUMIN 3.3 GM/DL (3.4-5.0); ALT (GPT) 16 U/L (12-78); AST (GOT) 27 U/L (15-37); BICARBONATE 22.6 MEQ/L (21.0-32.0); CALCIUM 7.9 MG/DL (8.5-10.1); CHLORIDE 99 MEQ/L (98-107); SODIUM (NA) 134 MEQ/L (136-145)
--- NOTE | 2017-06-24 17:57 | PD ---
Physical Exam Narrative Receive sign out from previous team to follow up labs and then medically clear him for psych evaluation but likely can lift Valadez Act if pt does not want to hurt himself. Impression was more alcohol abuse. 67yo M with alcohol abuse brought in as Valadez Act because he claims he wants to kill himself. Pt was being belligerant and was given ativan 1mg IM and chlodiazepoxide 25mg PO. When I evaluate patient, patient denies any suicidal or homicidal ideations. Pt was cooperative and restraints were removed. Said there is a girl he wants to and he does not want to kill himself. Pt is AAOx3. Labs reviewed, no leukocytosis. H/H normal. CMP unremarkable. TSH normal. Utox negative. Valadez Act has been lifted. Psych evaluation cancelled. Pt has been resting and denies any complaints. Pt is free to leave the ED when he is ready. Data Data Last Documented VS Vital Signs Date Time Temp Pulse Resp B/P (MAP) Pulse Ox O2 Delivery O2 Flow Rate FiO2 06/25/17 07:25 88 17 06/25/17 07:23 125/79 (94) 98 Room Air 06/24/17 16:26 97.6 Orders Orders Complete Blood Count With Diff (06/24/17 16:16) Comprehensive Metabolic Panel (06/24/17 16:16) Thyroid Stimulating Hormone (06/24/17 16:16) Drug Screen, Random Urine (06/24/17 16:16) Remove Sutures (06/24/17 16:16) Lorazepam Inj (Ativan Inj) (06/24/17 17:30) Chlordiazepoxide (Librium) (06/24/17 17:30) Restraints Non-Violent YVON.Q3H (06/24/17 17:34) Thiamine (Vit B1) (Vitamin B1) (06/24/17 22:45) Ed Discharge Order (06/24/17 22:42) Labs Laboratory Tests Test 06/24/17 00:00 06/24/17 16:43 06/24/17 17:56 Urine Opiates Screen NEG Urine Barbiturates Screen NEG Urine Amphetamines Screen NEG Urine Benzodiazepines Screen NEG Urine Cocaine Screen NEG Urine Cannabinoids Screen NEG White Blood Count 5.2 TH/MM3 Red Blood Count 4.02 MIL/MM3 Hemoglobin 13.7 GM/DL Hematocrit 39.8 % Mean Corpuscular Volume 99.1 FL Mean Corpuscular Hemoglobin 34.2 PG Mean Corpuscular Hemoglobin Concent 34.5 % Red Cell Distribution Width 15.1 % Platelet Count 141 TH/MM3 Mean Platelet Volume 7.6 FL Neutrophils (%) (Auto) 35.6 % Lymphocytes (%) (Auto) 48.9 % Monocytes (%) (Auto) 12.7 % Eosinophils (%) (Auto) 2.3 % Basophils (%) (Auto) 0.5 % Neutrophils # (Auto) 1.9 TH/MM3 Lymphocytes # (Auto) 2.5 TH/MM3 Monocytes # (Auto) 0.7 TH/MM3 Eosinophils # (Auto) 0.1 TH/MM3 Basophils # (Auto) 0.0 TH/MM3 CBC Comment DIFF FINAL Differential Comment Blood Urea Nitrogen 3 MG/DL Creatinine 0.55 MG/DL Random Glucose 83 MG/DL Total Protein 7.1 GM/DL Albumin 3.3 GM/DL Calcium Level 7.9 MG/DL Alkaline Phosphatase 63 U/L Aspartate Amino Transf (AST/SGOT) 27 U/L Alanine Aminotransferase (ALT/SGPT) 16 U/L Total Bilirubin 0.4 MG/DL Sodium Level 134 MEQ/L Potassium Level 3.7 MEQ/L Chloride Level 99 MEQ/L Carbon Dioxide Level 22.6 MEQ/L Anion Gap 12 MEQ/L Estimat Glomerular Filtration Rate 149 ML/MIN Thyroid Stimulating Hormone 3rd Gen 0.942 uIU/ML MDM Supervised Visit with CAL: No Diagnosis Primary Impression: Acute alcohol intoxication Qualified Codes: F10.929 - Alcohol use, unspecified with intoxication, unspecified Patient Instructions: General Instructions Departure Forms: Tests/Procedures Additional Instruction: Please return to the ED if you have any thoughts of hurting yourself or other people. Please follow up with your primary care physician in 2-3 days. Med/Other Pt SpecificInfo: No Change to Meds Scripts No Active Prescriptions or Reported Meds Disposition: 01 DISCHARGE HOME Condition: Stable VeraLiz DO June 24, 2017 17:57
[2017-06-24 18:57] VITALS: BP 116/77; PULSE 80; RESP 16; O2SAT 97
[2017-06-24 20:14] VITALS: BP 111/69; PULSE 69; RESP 16; O2SAT 96
[2017-06-24] MEDS ORDERED: THIAMINE HCL 100 MG TAB PO ONE (22:45)
[2017-06-25 07:23] VITALS: BP 125/79; PULSE 88; RESP 17; O2SAT 98
== END 2017-06-25 19:46 | disposition home or self-care (01) ==
LOC: NEPD 15:52 → NEDAMB 06-25 19:46
DX: F10.129 Alcohol abuse with intoxication, unspecified (principal); F32.9 Major depressive disorder, single episode, unspecified; E78.00 Pure hypercholesterolemia, unspecified; J44.9 Chronic obstructive pulmonary disease, unspecified; F17.210 Nicotine dependence, cigarettes, uncomplicated; Z99.3 Dependence on wheelchair
CPT/HCPCS: 80053; 80307; 84443; 85025; 96372; 99283; J2060

== ENCOUNTER 2018-01-29 14:34 | Inpatient (IN) ==
--- NOTE | 2018-01-29 14:50 | ED ---
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 But was noted to be in atrial fibrillation on rhythm strip. PCP is BARRIE MICHELLE complaint: Reports palpitations Duration: intermittent Severity: mild Context: Reports occurred during rest Arrhythmia history: Reports other Associated symptoms: Reports chest pain Related Data Home Medications Medication Instructions Recorded Confirmed No Known Home Medications 01/29/18 01/29/18 Allergies Allergy/AdvReac Type Severity Reaction Status Date / Time No Known Allergies Allergy Verified 01/29/18 15:00 Review of Systems ROS: all other systems reviewed are negative PMFSH History History Provided By: Patient Medical History Medical History Patient denies medical problems (Acute) Social History Social History Substance History: No History of Abuse Second Hand Smoke Exposure: Yes Smoking Status: Current every day smoker Tobacco Type: Cigarettes How Often Do You Have a Drink Containing Alcohol: 2 to 3 times a week Recent Travel in [facility] within the Last 8 Weeks: No Exam Narrative Exam Narrative: GENERAL: Thin male in no apparent distress. SKIN: Warm and dry. HEAD: Atraumatic. Normocephalic. EYES: Pupils equal and round. No scleral icterus. No injection or drainage. ENT: No nasal bleeding or discharge. Mucous membranes pink and moist. NECK: Trachea midline. No JVD. CARDIOVASCULAR: Irregularly irregular rhythm with tachycardic rate RESPIRATORY: No accessory muscle use. Clear to auscultation. Breath sounds equal bilaterally. reproducible right chest and right ant scm pain. GASTROINTESTINAL: Abdomen soft, non-tender, nondistended. No rebound or guarding MUSCULOSKELETAL: Extremities without clubbing, cyanosis, or edema. No obvious deformities. NEUROLOGICAL: Awake , confused ... And at x3, GCS of 14 . Motor grossly within normal limits. Five out of 5 muscle strength in the arms . Normal speech. Course Initial Documented Vital Signs Temperature 98 F 01/29/18 14:59 Pulse Rate 117 H 01/29/18 14:59 Respiratory Rate 20 01/29/18 14:59 Blood Pressure 166/99 H 01/29/18 14:59 Pulse Oximetry 97 01/29/18 14:59 Last Documented Vital Signs Temperature 98 F 01/29/18 14:59 Pulse Rate 98 H 01/29/18 18:01 Respiratory Rate 18 01/29/18 18:01 Blood Pressure 119/74 01/29/18 18:01 Pulse Oximetry 97 01/29/18 18:01 Medical Decision Making MDM Narrative Medical decision making narrative: No leukocytosis, no left shift, no anemia, mild thrombocytopenia 146,000 but very similar to previous values going as far back as July 2016 Electrolytes are within normal limits. Normal kidney, liver functions First set of cardiac enzymes negative.... Delta troponin is negative Chest x-ray read by radiologist as no acute cardiopulmonary disease CT head pending as of 1799 Medical Screen Exam Complete: Yes Emergency Medical Condition: Yes Medical Records Medical records reviewed: Yes I reviewed the patient's medical records. Lab Data Lab results reviewed: Yes I reviewed the patient's lab results. Result diagrams: 01/29/18 15:10 01/29/18 15:10 Lab Results 01/29/18 01/29/18 01/29/18 Range/Units 15:09 15:10 15:10 CBC w Diff Auto diff final WBC 5.5 (4.0-11.0) th/mm3 RBC 3.49 L (4.50-5.90) mil/mm3 Hgb 12.9 L (13.0-17.0) gm/dL Hct 36.8 L (39.0-51.0) % MCV 105.6 H (80.0-100.0) fL MCH 37.0 H (27.0-34.0) pg MCHC 35.0 (32.0-36.0) % RDW 16.5 (11.6-17.2) % Plt Count 146 L (150-450) th/mm3 MPV 7.6 (7.0-11.0) fL Neut % (Auto) 64.8 (16.0-70.0) % Lymph % (Auto) 22.3 (9.0-44.0) % [place] % (Auto) 9.4 H (0.0-8.0) % Eos % (Auto) 0.2 (0.0-4.0) % Baso % (Auto) 3.3 H (0.0-2.0) % Neut # (Auto) 3.6 (1.8-7.7) th/mm3 Lymph # (Auto) 1.2 (1.0-4.8) th/mm3 [place] # (Auto) 0.5 (0.0-0.9) th/mm3 Eos # (Auto) 0.0 (0.0-0.4) th/mm3 Baso # (Auto) 0.2 (0.0-0.2) th/mm3 WBC Differential . Differential Comment . Sodium 135 L (136-145) meq/L Potassium 4.1 (3.5-5.1) meq/L Chloride 102 (98-107) meq/L Carbon Dioxide 25.4 (21.0-32.0) meq/L Anion Gap 8 (5-15) meq/L BUN 6 L (7-18) mg/dL Creatinine 0.69 (0.60-1.30) mg/dL Estimated GFR Greater than 89 (>89) mL/min POC Glucose 131 H (68-110) mg/dl Random Glucose 113 H (74-106) mg/dL Calcium 8.0 L (8.5-10.1) mg/dL Magnesium (1.5-2.5) mg/dL Total Bilirubin 0.7 (0.2-1.0) mg/dL AST 33 (15-37) U/L ALT 18 (12-78) U/L Alkaline Phosphatase 90 (45-117) U/L Total Creatine Kinase (39-308) U/L CK-MB (CK-2) (0.5-3.6) ng/mL Troponin I (0.02-0.05) ng/mL B-Natriuretic Peptide (0-100) pg/mL Total Protein 7.6 (6.4-8.2) g/dL Albumin 3.2 L (3.4-5.0) g/dL Salicylates (2.8-20.0) mg/dL Urine Opiates Screen (Neg) Acetaminophen Less than 2.0 L (10.0-30.0) mcg/mL Ur Barbiturates Screen (Neg) Ur Amphetamines Screen (Neg) U Benzodiazepines Scrn (Neg) Urine Cocaine Screen (Neg) U Cannabinoids Screen (Neg) Serum Alcohol Less than 3 (0-5) mg/dL 01/29/18 01/29/18 01/29/18 Range/Units 15:10 15:10 15:10 CBC w Diff WBC (4.0-11.0) th/mm3 RBC (4.50-5.90) mil/mm3 Hgb (13.0-17.0) gm/dL Hct (39.0-51.0) % MCV (80.0-100.0) fL MCH (27.0-34.0) pg MCHC (32.0-36.0) % RDW (11.6-17.2) % Plt Count (150-450) th/mm3 MPV (7.0-11.0) fL Neut % (Auto) (16.0-70.0) % Lymph % (Auto) (9.0-44.0) % [place] % (Auto) (0.0-8.0) % Eos % (Auto) (0.0-4.0) % Baso % (Auto) (0.0-2.0) % Neut # (Auto) (1.8-7.7) th/mm3 Lymph # (Auto) (1.0-4.8) th/mm3 [place] # (Auto) (0.0-0.9) th/mm3 Eos # (Auto) (0.0-0.4) th/mm3 Baso # (Auto) (0.0-0.2) th/mm3 WBC Differential Differential Comment Sodium (136-145) meq/L Potassium (3.5-5.1) meq/L Chloride (98-107) meq/L Carbon Dioxide (21.0-32.0) meq/L Anion Gap (5-15) meq/L BUN (7-18) mg/dL Creatinine (0.60-1.30) mg/dL Estimated GFR (>89) mL/min POC Glucose (68-110) mg/dl Random Glucose (74-106) mg/dL Calcium (8.5-10.1) mg/dL Magnesium 2.0 (1.5-2.5) mg/dL Total Bilirubin (0.2-1.0) mg/dL AST (15-37) U/L ALT (12-78) U/L Alkaline Phosphatase (45-117) U/L Total Creatine Kinase 172 (39-308) U/L CK-MB (CK-2) 4.8 H (0.5-3.6) ng/mL Troponin I Less than 0.02 L (0.02-0.05) ng/mL B-Natriuretic Peptide 49 (0-100) pg/mL Total Protein (6.4-8.2) g/dL Albumin (3.4-5.0) g/dL Salicylates 2.4 L (2.8-20.0) mg/dL Urine Opiates Screen (Neg) Acetaminophen (10.0-30.0) mcg/mL Ur Barbiturates Screen (Neg) Ur Amphetamines Screen (Neg) U Benzodiazepines Scrn (Neg) Urine Cocaine Screen (Neg) U Cannabinoids Screen (Neg) Serum Alcohol (0-5) mg/dL 01/29/18 01/29/18 01/29/18 Range/Units 16:05 17:25 17:25 CBC w Diff WBC (4.0-11.0) th/mm3 RBC (4.50-5.90) mil/mm3 Hgb (13.0-17.0) gm/dL Hct (39.0-51.0) % MCV (80.0-100.0) fL MCH (27.0-34.0) pg MCHC (32.0-36.0) % RDW (11.6-17.2) % Plt Count (150-450) th/mm3 MPV (7.0-11.0) fL Neut % (Auto) (16.0-70.0) % Lymph % (Auto) (9.0-44.0) % [place] % (Auto) (0.0-8.0) % Eos % (Auto) (0.0-4.0) % Baso % (Auto) (0.0-2.0) % Neut # (Auto) (1.8-7.7) th/mm3 Lymph # (Auto) (1.0-4.8) th/mm3 [place] # (Auto) (0.0-0.9) th/mm3 Eos # (Auto) (0.0-0.4) th/mm3 Baso # (Auto) (0.0-0.2) th/mm3 WBC Differential Differential Comment Sodium (136-145) meq/L Potassium (3.5-5.1) meq/L Chloride (98-107) meq/L Carbon Dioxide (21.0-32.0) meq/L Anion Gap (5-15) meq/L BUN (7-18) mg/dL Creatinine (0.60-1.30) mg/dL Estimated GFR (>89) mL/min POC Glucose (68-110) mg/dl Random Glucose (74-106) mg/dL Calcium (8.5-10.1) mg/dL Magnesium (1.5-2.5) mg/dL Total Bilirubin (0.2-1.0) mg/dL AST (15-37) U/L ALT (12-78) U/L Alkaline Phosphatase (45-117) U/L Total Creatine Kinase 182 (39-308) U/L CK-MB (CK-2) 4.7 H (0.5-3.6) ng/mL Troponin I Less than 0.02 L (0.02-0.05) ng/mL B-Natriuretic Peptide (0-100) pg/mL Total Protein (6.4-8.2) g/dL Albumin (3.4-5.0) g/dL Salicylates (2.8-20.0) mg/dL Urine Opiates Screen Neg (Neg) Acetaminophen (10.0-30.0) mcg/mL Ur Barbiturates Screen Neg (Neg) Ur Amphetamines Screen Neg (Neg) U Benzodiazepines Scrn Neg (Neg) Urine Cocaine Screen Neg (Neg) U Cannabinoids Screen Neg (Neg) Serum Alcohol (0-5) mg/dL Imaging Data Radiologist's impression: Chest X-Ray 01/29/18 14:43 CONCLUSION: No acute cardiopulmonary disease. Head CT 01/29/18 16:21 CONCLUSION: Slight chronic small vessel ischemic and atrophic changes, stable ventriculomegaly . Discharge Plan Discharge Disposition Patient Disposition: 01 Discharge Home Discharge Condition Condition: Stable Discharge Order Discharge Orders: Discharge Order (Routine); Ordered 01/29/18 Ordered By: Chris Franklin Discharge Details Diagnosis: Palpitation Physicians Team ED Provider: Chris Franklin Primary Care Provider: [facility] /Orders / Referrals /Forms Prescriptions: No Action No Known Home Medications RF: 0 Discharge Instructions Patient Printed Instructions: Chest Wall Pain (ED) Discharge Interventions Interventions: Vital Signs Last Done: 01/29/18 18:01 Status ED Status: Ready for Discharge
[2018-01-29 15:23] LABS: Baso # (Auto) 0.2 th/mm3 (0.0-0.2); Baso % (Auto) 3.3 % (0.0-2.0); Eos % (Auto) 0.2 % (0.0-4.0); Hematocrit 36.8 % (39.0-51.0); Hemoglobin 12.9 gm/dL (13.0-17.0); Lymph # (Auto) 1.2 th/mm3 (1.0-4.8); Lymph % (Auto) 22.3 % (9.0-44.0); Mean Corpuscular Volume 105.6 fL (80.0-100.0); Mean Platelet Volume 7.6 fL (7.0-11.0); Mono # (Auto) 0.5 th/mm3 (0.0-0.9); Mono % (Auto) 9.4 % (0.0-8.0); Neut # (Auto) 3.6 th/mm3 (1.8-7.7); Neut % (Auto) 64.8 % (16.0-70.0); Platelet Count 146 th/mm3 (150-450); Red Blood Count 3.49 mil/mm3 (4.50-5.90); Red Cell Distribution Width 16.5 % (11.6-17.2); White Blood Count 5.5 th/mm3 (4.0-11.0)
[2018-01-29 15:39] LABS: Chloride 102 meq/L (98-107); Potassium 4.1 meq/L (3.5-5.1); Sodium 135 meq/L (136-145)
[2018-01-29 15:42] LABS: Albumin 3.2 g/dL (3.4-5.0); Anion Gap 8 meq/L (5-15); Blood Urea Nitrogen 6 mg/dL (7-18); Carbon Dioxide 25.4 meq/L (21.0-32.0); Glucose,Random 113 mg/dL (74-106)
[2018-01-29 15:45] LABS: Alanine Aminotransferase 18 U/L (12-78); Aspartate Aminotransferase 33 U/L (15-37); Glomerular Filtration Rate Greater Than 89 mL/min (>89)
[2018-01-29 15:47] LABS: Creatine Kinase 172 U/L (39-308); Total Protein 7.6 g/dL (6.4-8.2)
[2018-01-29 15:48] LABS: Alkaline Phosphatase 90 U/L (45-117)
[2018-01-29 16:25] LABS: Creatine Kinase MB 4.8 ng/mL (0.5-3.6)
[2018-01-29 16:33] LABS: Amphetamine Screen,Urine Neg (Neg); Barbiturate Screen,Urine Neg (Neg); Cannabinoid Screen,Urine Neg (Neg); Cocaine Screen,Urine Neg (Neg)
--- NOTE | 2018-01-29 16:47 | XR ---
EXAM DATE: 01/29/2018 4:38 PM EST AGE/SEX: 67 years / Male INDICATIONS: chest pain for 2 months CLINICAL DATA: This is the patient's initial encounter. Patient reports that signs and symptoms have been present for 2 months and indicates a pain score of 6/10. MEDICAL/SURGICAL HISTORY: . Chronic obstructive pulmonary disease. Seizures. . Fusion, cerv ical. COMPARISON: [facility] [place] SING[place], 08/05/2016. . FINDINGS: The lungs are clear without infiltrate, nodule, or mass except for scarring left lung base not significantly changed adjacent to hemidiaphragm. There is no appreciable pleural effusion for t echnique. Heart and mediastinum are unremarkable. CONCLUSION: No acute cardiopulmonary disease. Electronically signed by: Cailin Erickson MD Board Certified Radiologist 01/29/2018 4:46 PM EST
[2018-01-29 16:50] LABS: Opiate Screen,Urine Neg (Neg)
[2018-01-29 17:57] LABS: Creatine Kinase 182 U/L (39-308)
[2018-01-29 18:23] LABS: Creatine Kinase MB 4.7 ng/mL (0.5-3.6)
--- NOTE | 2018-01-29 18:31 | CT ---
EXAM DATE: 01/29/2018 6:14 PM EST AGE/SEX: 67 years / Male INDICATIONS: General weakness. Altered mental status. CLINICAL DATA: This is the patient's initial encounter. Patient reports that signs and symptoms have been present for 1 day and indicates a pain score of 0/10. MEDICAL/SURGICAL HISTORY: None. None. RADIATION DOSE: 57.43 CTDI (mGy) COMPARISON: No prior exams available for comparison. TECHNIQUE: CT of the head without contrast. Using automated exposure control and adjustment of the mA and/or kV according to patient size, radiation dose was kept as low as reasonably achievable to ob tain optimal diagnostic quality images. DICOM format image data is available electronically for revi ew and comparison. FINDINGS: There is no evidence for intracranial hemorrhage, mass effect, mass lesions, or edema. The visualize d bony structures appear intact. Slight degree of brain atrophy is seen. Slight periventricular whit e matter changes are seen nonspecific mostly consistent with chronic small vessel ischemic changes. There are no signs of acute infarction for technique. Graded 3 ventriculomegaly has not changed since 2016. CONCLUSION: Slight chronic small vessel ischemic and atrophic changes, stable ventriculomegaly . Electronically signed by: Cailin Erickson MD Board Certified Radiologist 01/29/2018 6:30 PM EST
[2018-01-29] MEDS ORDERED: Bisacodyl 10 MG Supp RECTAL PRN (19:44)
[2018-01-29] MEDS ORDERED: Haloperidol Inj 5 MG/ML Ampul IV.PUSH PRN (19:44)
[2018-01-29] MEDS ORDERED: Acetaminophen 325 MG Tablet PO PRN (19:44)
[2018-01-29] MEDS: Sod Chloride 0.9% Inj 1,000 ML IV.CONT SCH (20:28)
[2018-01-29] MEDS: Thiamine Inj 100 MG in Sodium Chlor 0.9% Inj 100 ML IV.SIG SCH (20:28)
[2018-01-30] MEDS: Senna/Docusate Sodium 8.6/50 MG Tablet PO SCH ×3 (03:54→22:01)
[2018-01-30] MEDS ORDERED: Haloperidol Inj 5 MG/ML Ampul IM PRN (05:08)
[2018-01-30 06:06] LABS: Baso # (Auto) 0.3 th/mm3 (0.0-0.2); Baso % (Auto) 3.3 % (0.0-2.0); Eos % (Auto) 0.4 % (0.0-4.0); Hematocrit 33.2 % (39.0-51.0); Lymph # (Auto) 0.8 th/mm3 (1.0-4.8); Lymph % (Auto) 10.7 % (9.0-44.0); Mean Corpuscular HGB Conc 33.2 % (32.0-36.0); Mean Corpuscular Hemoglobin 34.9 pg (27.0-34.0); Mean Corpuscular Volume 104.9 fL (80.0-100.0); Mean Platelet Volume 7.5 fL (7.0-11.0); Mono # (Auto) 0.1 th/mm3 (0.0-0.9); Mono % (Auto) 1.7 % (0.0-8.0); Neut # (Auto) 6.7 th/mm3 (1.8-7.7); Neut % (Auto) 83.9 % (16.0-70.0); Platelet Count 143 th/mm3 (150-450); Red Blood Count 3.17 mil/mm3 (4.50-5.90); Red Cell Distribution Width 16.6 % (11.6-17.2); White Blood Count 7.9 th/mm3 (4.0-11.0)
[2018-01-30 06:24] LABS: Chloride 104 meq/L (98-107); Potassium 3.6 meq/L (3.5-5.1); Sodium 136 meq/L (136-145)
[2018-01-30 06:27] LABS: Albumin 2.9 g/dL (3.4-5.0); Anion Gap 7 meq/L (5-15); Blood Urea Nitrogen 6 mg/dL (7-18); Calcium 7.6 mg/dL (8.5-10.1); Carbon Dioxide 24.6 meq/L (21.0-32.0); Glucose,Random 113 mg/dL (74-106)
[2018-01-30 06:30] LABS: Alanine Aminotransferase 14 U/L (12-78); Aspartate Aminotransferase 25 U/L (15-37)
[2018-01-30 06:31] LABS: Glomerular Filtration Rate Greater Than 89 mL/min (>89)
[2018-01-30 06:32] LABS: Total Protein 6.9 g/dL (6.4-8.2)
[2018-01-30 06:33] LABS: Alkaline Phosphatase 68 U/L (45-117)
[2018-01-30] MEDS: Thiamine Inj 100 MG in Sodium Chlor 0.9% Inj 100 ML IV.SIG SCH (09:12)
[2018-01-30] MEDS: Sod Chloride 0.9% Inj 1,000 ML IV.CONT SCH ×2 (09:34→17:00)
[2018-01-30] MEDS: Folic Acid 1 MG Tablet PO SCH (09:51)
[2018-01-30] MEDS: Multivitamin/Minerals Therapeutic Tablet PO SCH (10:59)
--- NOTE | 2018-01-30 11:56 | P.HP ---
History of Present Illness Primary Care Physician: Physician [facility] Chief Complaint: Chest pain and palpitations History of Present Illness: This is a 67-year-old male patient with a known history of alcohol abuse and prior intoxication who presented to the ED with palpitations and chest pain. According to the records patient presented to the fire department and was brought to the ED. at the time of assessment patient denied any of said complaints. According to the records patient was found to be in atrial fibrillation on the EKG. Patient is assessed in his room in the ICU, lethargic , status post IV Haldol and Ativan. Awakens to voice, is able to tell me where he is then slowly drifts off back to sleep. Follows commands intermittently, speech is clear, is protecting airway, gross motor in bilateral upper and lower extremities appears to be normal. Patient is a poor historian and unable to contribute to the medical history and events leading up to his presentation, medical records have been reviewed. Upon exam patient CBC and BMP were unremarkable. Chest x-ray showed no acute cardiopulmonary disease. Head CT was negative for any acute findings. - Diagnosis (1) Alcohol dependence with intoxication (2) Palpitation Inpatient Certification: I certify that the inpatient services were ordered in accordance with Medicare regulations governing the order. This includes certification that hospital inpatient services are reasonable and necessary and in the case of services not specified as inpatient-only under 42 CFR 419.22(n), that they are appropriately provided as inpatient services in accordance to with the 2-midnight benchmark under 43 CFR 412.3(e) Estimated Total Length of Stay (Days): 2 Plans for Post Hospital Care: Not yet determined Review of Systems All other systems reviewed negative except as stated in HPI [facility] - History History Provided By: Patient - Medical / Surgical Hx Neg / Unobtainable Medical Problems Denied: Unable to Obtain - Medical History Medical History: Medical History (Last Reviewed 01/29/18 @ 15:02 by More Julien RN) Patient denies medical problems - Social History I have reviewed the patient's Social History: Yes - Tobacco History Second Hand Smoke Exposure: Yes Tobacco Use In Past 30 Days: Yes Smoking Status: Current every day smoker Tobacco Type: Cigarettes - Alcohol History How Often Do You Have a Drink Containing Alcohol: 2 to 3 times a week - Substance Use History Substance History: No History of Abuse - Travel History Recent Travel in the [facility] Within the Last 8 Weeks: No - Immunization History Tetanus Immunization: >5 Years Medications and Allergies Active Medications: Active Medications Acetaminophen (Tylenol) 650 mg PO Q4H PRN PRN Reason: Temp > 100.4 Al Hydroxide/Mg Hydroxide (Milk Of Magnesia Liq) 30 ml PO Q12H PRN PRN Reason: Mild Constipation Bisacodyl (Dulcolax Supp) 10 mg RECTAL DAILY PRN PRN Reason: SEVERE CONSITIPATION Flumazenil (Romazecon Inj) 0.2 mg IV.PUSH Q1M PRN PRN Reason: OVERSEDATION Folic Acid (Folic Acid) 1 mg PO DAILY JUAN Stop: 02/04/18 08:59 Last Admin: 01/30/18 09:51 Dose: 1 mg Haloperidol Lactate (Haldol Inj) 2 mg IM Q15M PRN PRN Reason: for severe agitation Last Admin: 01/30/18 05:17 Dose: 2 mg Thiamine HCl 100 mg/ Sodium (Chloride) 101 mls @ 100 mls/hr IV.SIG DAILY JUAN Stop: 02/01/18 20:59 Last Infusion: 01/30/18 10:59 Dose: Infused Sodium Chloride (Ns Inj) 1,000 mls @ 100 mls/hr IV.CONT .Q10H JUAN Last Admin: 01/30/18 09:34 Dose: 100 mls/hr Lactulose (Lactulose Liq) 30 ml PO DAILY PRN PRN Reason: SEVERE CONSITIPATION Lorazepam (Ativan) 1 mg PO Q4H PRN PRN Reason: for CIWA 8-10 Lorazepam (Ativan) 2 mg PO Q2H PRN PRN Reason: for CIWA 11-14 Lorazepam (Ativan Inj) 2 mg IV.PUSH Q2H PRN PRN Reason: for CIWA 11-14 Lorazepam (Ativan Inj) 2 mg IV.PUSH Q1H PRN PRN Reason: for CIWA 15-20 Lorazepam (Ativan Inj) 1 mg IV.PUSH Q4H PRN PRN Reason: for CIWA 8-10 Last Admin: 01/30/18 04:19 Dose: 1 mg Lorazepam (Ativan Inj) 2 mg IV.PUSH Q15M PRN PRN Reason: for CIWA > 20 Multivitamins/Minerals (Theragran-M) 1 tab PO DAILY JUAN Stop: 02/04/18 08:59 Last Admin: 01/30/18 10:59 Dose: Not Given Ondansetron HCl (Zofran Inj) 4 mg IV.PUSH Q6H PRN PRN Reason: NAUSEA OR VOMITING Senna/Docusate Sodium (Darcie-Colace) 1 tab PO BID [facility] Last Admin: 01/30/18 09:51 Dose: 1 tab Sennosides (Senokot) 17.2 mg PO Q12H PRN PRN Reason: Moderate Constipation Sodium Chloride (Ns Flush) 2 ml IV.FLUSH BID [facility] Last Admin: 01/30/18 10:58 Dose: Not Given Sodium Chloride (Ns Flush) 2 ml IV.FLUSH PRN PRN PRN Reason: FLUSH AFTER USING IV ACCESS Thiamine HCl (Vitamin B1) 100 mg PO DAILY [facility] Allergies Allergy/AdvReac Type Severity Reaction Status Date / Time No Known Allergies Allergy Verified 01/29/18 15:00 Home Medications Medication Instructions Recorded Confirmed Type No Known Home Medications 01/29/18 01/29/18 History Exam Vital signs: Vital Signs 01/29/18 14:59 01/29/18 15:41 01/29/18 16:11 Temperature 98 F Pulse Rate 117 H 114 H 101 H Respiratory Rate 20 20 18 Blood Pressure 166/99 H 119/85 135/84 Pulse Oximetry 97 98 97 01/29/18 18:01 01/29/18 19:32 01/29/18 21:30 Temperature 99.0 F Pulse Rate 98 H 77 92 H Respiratory Rate 18 18 18 Blood Pressure 119/74 124/82 Pulse Oximetry 97 98 01/29/18 22:57 01/30/18 02:30 01/30/18 04:53 Temperature Pulse Rate 85 90 76 Respiratory Rate 18 18 Blood Pressure 119/61 113/72 Pulse Oximetry 01/30/18 04:55 01/30/18 07:14 01/30/18 08:00 Temperature 97.8 F Pulse Rate 86 78 78 Respiratory Rate 18 16 18 Blood Pressure 109/59 L 108/68 123/68 Pulse Oximetry 95 95 01/30/18 09:56 01/30/18 10:51 01/30/18 10:57 Temperature Pulse Rate 81 66 Respiratory Rate 18 15 Blood Pressure 120/77 136/74 Pulse Oximetry 95 98 01/30/18 11:00 01/30/18 11:04 01/30/18 11:07 Temperature Pulse Rate 66 64 74 Respiratory Rate 15 15 16 Blood Pressure 89/38 L 70/45 L 100/57 L Pulse Oximetry 100 100 93 L Intake & Output 01/29/18 01/30/18 01/30/18 18:59 06:59 18:59 Intake Total 1101 / 1101 101 / 101 Output Total 700 / 700 Balance -700 / -700 1101 / 1101 101 / 101 Weight 81.647 kg Intake: IV 1101 / 1101 101 / 101 NS Inj 1,000 ML @ 100 mls/hr IV 1000 / 1000 .CONT .Q10H JUAN Rx#:[id number] Thiamine Inj 100 MG In NS Inj 101 / 101 101 / 101 100 ML @ 100 mls/hr IV.SIG DAILY JUAN Rx#:[id number] Output: Urine Amount (Catheter) 700 / 700 Straight 700 / 700 Other: # Voids 1 # Urine Diapers 1 Narrative: GENERAL: Well-developed, well-nourished patient lying in bed lethargic, awakens to voice, is able to tell me his name and where he is. Quickly falls back to sleep status post benzo administration. SKIN: Warm and dry. No rash. HEAD: Normocephalic. Atraumatic. EYES: Pupils equal and round. No scleral icterus. No injection or drainage. ENT: No nasal bleeding or discharge. Mucous membranes pink and moist. NECK: Supple. Trachea midline. CARDIOVASCULAR: Irregularly irregular rhythm. No murmur appreciated. RESPIRATORY: No accessory muscle use. Clear to auscultation. Breath sounds equal bilaterally. GASTROINTESTINAL: Abdomen soft, non-tender, nondistended. Normoactive bowel sounds x4. MUSCULOSKELETAL: No obvious deformities. Extremities without clubbing, cyanosis , or edema. NEUROLOGICAL: Lethargic. No obvious cranial nerve deficits. Motor grossly within normal limits. 5/5 muscle strength in bilateral upper and lower extremities. Normal speech. Results - Labs CBC & Chem 7: 01/30/18 06:00 01/30/18 06:00 Labs: Laboratory Results - last 24 hr 01/29/18 01/29/18 01/29/18 15:09 15:10 15:10 CBC w Diff Auto diff final WBC 5.5 RBC 3.49 L Hgb 12.9 L Hct 36.8 L MCV 105.6 H MCH 37.0 H MCHC 35.0 RDW 16.5 Plt Count 146 L MPV 7.6 Neut % (Auto) 64.8 Lymph % (Auto) 22.3 Perry % (Auto) 9.4 H Eos % (Auto) 0.2 Baso % (Auto) 3.3 H Neut # (Auto) 3.6 Lymph # (Auto) 1.2 Perry # (Auto) 0.5 Eos # (Auto) 0.0 Baso # (Auto) 0.2 WBC Differential . Differential Comment . Sodium 135 L Potassium 4.1 Chloride 102 Carbon Dioxide 25.4 Anion Gap 8 BUN 6 L Creatinine 0.69 Estimated GFR Greater than 89 POC Glucose 131 H Random Glucose 113 H Calcium 8.0 L Magnesium Total Bilirubin 0.7 AST 33 ALT 18 Alkaline Phosphatase 90 Total Creatine Kinase CK-MB (CK-2) Troponin I B-Natriuretic Peptide Total Protein 7.6 Albumin 3.2 L Salicylates Urine Opiates Screen Acetaminophen Less than 2.0 L Ur Barbiturates Screen Ur Amphetamines Screen U Benzodiazepines Scrn Urine Cocaine Screen U Cannabinoids Screen Serum Alcohol Less than 3 01/29/18 01/29/18 01/29/18 15:10 15:10 15:10 CBC w Diff WBC RBC Hgb Hct MCV MCH MCHC RDW Plt Count MPV Neut % (Auto) Lymph % (Auto) Perry % (Auto) Eos % (Auto) Baso % (Auto) Neut # (Auto) Lymph # (Auto) Perry # (Auto) Eos # (Auto) Baso # (Auto) WBC Differential Differential Comment Sodium Potassium Chloride Carbon Dioxide Anion Gap BUN Creatinine Estimated GFR POC Glucose Random Glucose Calcium Magnesium 2.0 Total Bilirubin AST ALT Alkaline Phosphatase Total Creatine Kinase 172 CK-MB (CK-2) 4.8 H Troponin I Less than 0.02 L B-Natriuretic Peptide 49 Total Protein Albumin Salicylates 2.4 L Urine Opiates Screen Acetaminophen Ur Barbiturates Screen Ur Amphetamines Screen U Benzodiazepines Scrn Urine Cocaine Screen U Cannabinoids Screen Serum Alcohol 01/29/18 01/29/18 01/29/18 16:05 17:25 17:25 CBC w Diff WBC RBC Hgb Hct MCV MCH MCHC RDW Plt Count MPV Neut % (Auto) Lymph % (Auto) Perry % (Auto) Eos % (Auto) Baso % (Auto) Neut # (Auto) Lymph # (Auto) Perry # (Auto) Eos # (Auto) Baso # (Auto) WBC Differential Differential Comment Sodium Potassium Chloride Carbon Dioxide Anion Gap BUN Creatinine Estimated GFR POC Glucose Random Glucose Calcium Magnesium Total Bilirubin AST ALT Alkaline Phosphatase Total Creatine Kinase 182 CK-MB (CK-2) 4.7 H Troponin I Less than 0.02 L B-Natriuretic Peptide Total Protein Albumin Salicylates Urine Opiates Screen Neg Acetaminophen Ur Barbiturates Screen Neg Ur Amphetamines Screen Neg U Benzodiazepines Scrn Neg Urine Cocaine Screen Neg U Cannabinoids Screen Neg Serum Alcohol 01/29/18 01/29/18 01/30/18 19:34 23:18 04:48 CBC w Diff WBC RBC Hgb Hct MCV MCH MCHC RDW Plt Count MPV Neut % (Auto) Lymph % (Auto) Perry % (Auto) Eos % (Auto) Baso % (Auto) Neut # (Auto) Lymph # (Auto) Perry # (Auto) Eos # (Auto) Baso # (Auto) WBC Differential Differential Comment Sodium Potassium Chloride Carbon Dioxide Anion Gap BUN Creatinine Estimated GFR POC Glucose 103 96 93 Random Glucose Calcium Magnesium Total Bilirubin AST ALT Alkaline Phosphatase Total Creatine Kinase CK-MB (CK-2) Troponin I B-Natriuretic Peptide Total Protein Albumin Salicylates Urine Opiates Screen Acetaminophen Ur Barbiturates Screen Ur Amphetamines Screen U Benzodiazepines Scrn Urine Cocaine Screen U Cannabinoids Screen Serum Alcohol 01/30/18 01/30/18 06:00 06:00 CBC w Diff Auto diff final WBC 7.9 RBC 3.17 L Hgb 11.0 L Hct 33.2 L MCV 104.9 H MCH 34.9 H MCHC 33.2 RDW 16.6 Plt Count 143 L MPV 7.5 Neut % (Auto) 83.9 H Lymph % (Auto) 10.7 Perry % (Auto) 1.7 Eos % (Auto) 0.4 Baso % (Auto) 3.3 H Neut # (Auto) 6.7 Lymph # (Auto) 0.8 L Perry # (Auto) 0.1 Eos # (Auto) 0.0 Baso # (Auto) 0.3 H WBC Differential . Differential Comment . Sodium 136 Potassium 3.6 Chloride 104 Carbon Dioxide 24.6 Anion Gap 7 BUN 6 L Creatinine 0.70 Estimated GFR Greater than 89 POC Glucose Random Glucose 113 H Calcium 7.6 L Magnesium Total Bilirubin 1.0 AST 25 ALT 14 Alkaline Phosphatase 68 Total Creatine Kinase CK-MB (CK-2) Troponin I B-Natriuretic Peptide Total Protein 6.9 D Albumin 2.9 L Salicylates Urine Opiates Screen Acetaminophen Ur Barbiturates Screen Ur Amphetamines Screen U Benzodiazepines Scrn Urine Cocaine Screen U Cannabinoids Screen Serum Alcohol - Imaging Impressions Chest X-Ray 01/29/18 14:43 CONCLUSION: No acute cardiopulmonary disease. Head CT 01/29/18 16:21 CONCLUSION: Slight chronic small vessel ischemic and atrophic changes, stable ventriculomegaly . Caprini VTE Risk Assessment Caprini VTE Risk Assessment: Moderate/High Risk (score >= 2) Caprini Risk Assessment Model: Point Value = 1 Point Value = 2 Point Value = 3 Point Value = 5 Age 41-60 Minor surgery BMI > 25 kg/m2 Swollen legs Varicose veins or History of unexplained or recurrent spontaneous Oral contraceptives or hormone replacement Sepsis (< 1 month) Serious lung disease, including pneumonia (< 1 month) Abnormal pulmonary function Acute myocardial infarction Congestive heart failure (< 1 month) History of inflammatory bowel disease Medical patient at bed rest Age 61-74 Arthroscopic surgery Major open surgery (> 45 min) Laparoscopic surgery (> 45 min) Malignancy Confined to bed (> 72 hours) Immobilizing plaster cast Central venous access Age >= 75 History of VTE Family history of VTE Factor V Leiden Prothrombin [id number] Lupus anticoagulant Anticardiolipin antibodies Elevated serum homocysteine Heparin-induced thrombocytopenia Other congenital or acquired thrombophilia Stroke (< 1 month) Elective arthroplasty Hip, pelvis, or leg fracture Acute spinal cord injury (< 1 month) Prophylaxis Regimen: Total Risk Factor Score Risk Level Prophylaxis Regimen 0-1 Low Early ambulation 2 Moderate Order ONE of the following: *Sequential Compression Device (SCD) *Heparin 5000 units SQ BID 3-4 Higher Order ONE of the following medications: *Heparin 5000 units SQ TID *Enoxaparin/Lovenox 40 mg SQ daily (WT < 150 kg, CrCl > 30 mL/min) *Enoxaparin/Lovenox 30 mg SQ daily (WT < 150 kg, CrCl > 10-29 mL/min) *Enoxaparin/Lovenox 30 mg SQ BID (WT < 150 kg, CrCl > 30 mL/min) AND/OR *Sequential Compression Device (SCD) 5 or more Highest Order ONE of the following medications: *Heparin 5000 units SQ TID (Preferred with Epidurals) *Enoxaparin/Lovenox 40 mg SQ daily (WT < 150 kg, CrCl > 30 mL/min) *Enoxaparin/Lovenox 30 mg SQ daily (WT < 150 kg, CrCl > 10-29 mL/min) *Enoxaparin/Lovenox 30 mg SQ BID (WT < 150 kg, CrCl > 30 mL/min) AND *Sequential Compression Device (SCD) Assessment and Plan - Assessment (1) Alcohol dependence with intoxication Code(s): F10.229 - Alcohol dependence with intoxication, unspecified Status: Acute (2) Palpitation Code(s): R00.2 - Palpitations Status: Acute - Plan This is a 67-year-old male patient who presented to the ED with: Chest pain and palpitations New onset atrial fibrillation -Denies any current chest pain. -At the time of assessment patient denies any chest pain. HR is controlled. BP is labile. -Considering his chronic alcohol abuse patient is probably not a good anticoagulation candidate. -Also his BP has been labile and at this time unable to start antiarrhythmic. Will continue to assess. -Continue on cardiac telemetry. Monitor for any arrhythmia. -Trend Troponins. Initial troponin flat. -Trends EKGs. EKG initially showing controlled heart rate in atrial fibrillation. -On heparin sq for now. Continue. -CHADSvasc score is low. -Requesting cardiology to come and evaluate patient. Input and recommendations pending. Chronic alcohol abuse with acute alcohol withdrawal and DTs -Head CT showing no acute findings. Shows some chronic small vessel ischemia and atrophic changes, stable ventriculomegaly. -CIWA protocol in place. Monitor vitals and labs. -Close monitoring. -Seizure precautions. -Continue thiamine, folate and multivitamin. DVT Prophylaxis: SCDs. Heparin. (1) Alcohol dependence with intoxication Qualifiers: Complication of substance-induced condition: uncomplicated Qualified Code(s) : F10.220 - Alcohol dependence with intoxication, uncomplicated
--- NOTE | 2018-01-30 14:15 | ECG ---
Date Performed: 01/29/2018 Time Performed: 17:43:12 PTAGE: 67 years EKG: ATRIAL FIBRILLATION ABNORMAL RHYTHM ECG Since the PREVIOUS TRACING , no significant change noted PREVIOUS TRACIN01/29/2018 15.06 DOCTOR: Petey Boland Interpretating Date/Time 01/30/2018 14:14:00
--- NOTE | 2018-01-30 14:15 | ECG ---
Date Performed: 01/29/2018 Time Performed: 15:06:17 PTAGE: 67 years EKG: LIKELY ATRIAL FIBRILLATION WITH RAPID VENTRICULAR RESPONSE ABNORMAL RHYTHM ECG Compared to PREVIOUS TRACING likely atrial fibrillation has replaced Sinus rhythm Heavy baseline artifact which makes ekg difficult to assess but appears to be atrial fibrillation [facility] EVIOUS TRACIN07/08/2015 11.58 DOCTOR: Petey Boland Interpretating Date/Time 01/30/2018 14:13:42
[2018-01-30 17:40] LABS: Creatine Kinase 363 U/L (39-308)
[2018-01-30 17:55] LABS: CKMB Percent 0.9 % (0.0-4.0); Creatine Kinase MB 3.2 ng/mL (0.5-3.6)
[2018-01-30 21:13] LABS: Creatine Kinase 421 U/L (39-308)
[2018-01-30 21:26] LABS: CKMB Percent 0.9 % (0.0-4.0); Creatine Kinase MB 3.9 ng/mL (0.5-3.6)
[2018-01-30] MEDS: Heparin - SQ 10,000 UNITS/ML Vial SQ SCH (22:00)
[2018-01-31] MEDS: Sod Chloride 0.9% Inj 1,000 ML IV.CONT SCH ×2 (05:03→22:30)
--- NOTE | 2018-01-31 07:50 | P.CONCA ---
History of Present Illness Primary Care Provider: Physician [facility] Chief Complaint: Chest pain and palpitations History of Present Illness: 67-year-old male with no known past medical history of than alcohol abuse who was admitted for delirium tremens/alcohol withdrawal. Reportedly the patient presented to the fire station with complaints of palpitations and was found to be in A. fib with RVR and sent to the ED. Since arrival to the ED the patient has had no specific complaints to the ED physician or the hospitalist. RN overnight reports patient has has had no complaints. The patient is currently undergoing CIWA protocol for alcohol withdrawal and is in four-point restraints. The patient is a poor historian but denies any past medical history and has no specific cardiovascular complaints at this time. His telemetry shows episodes of A. fib RVR rate up to around 130, however currently shows NSR 70s. Review of Systems unobtainable due to mental status PMFSH - History History Provided By: Patient, Medical Record - Medical / Surgical Hx Neg / Unobtainable Medical Problems Denied: Yes - Medical History Medical History: Medical History (Last Reviewed 01/29/18 @ 15:02 by More Julien RN) Patient denies medical problems - Tobacco History Second Hand Smoke Exposure: Yes Tobacco Use In Past 30 Days: Yes Smoking Status: Current every day smoker Tobacco Type: Cigarettes - Alcohol History How Often Do You Have a Drink Containing Alcohol: 2 to 3 times a week - Substance Use History Substance History: No History of Abuse - Travel History Recent Travel in the [facility] Within the Last 8 Weeks: No - Immunization History Tetanus Immunization: >5 Years Medications and Allergies Active Medications: Active Medications Acetaminophen (Tylenol) 650 mg PO Q4H PRN PRN Reason: Temp > 100.4 Al Hydroxide/Mg Hydroxide (Milk Of Magngisell Liq) 30 ml PO Q12H PRN PRN Reason: Mild Constipation Bisacodyl (Dulcolax Supp) 10 mg RECTAL DAILY PRN PRN Reason: SEVERE CONSITIPATION Flumazenil (Romazecon Inj) 0.2 mg IV.PUSH Q1M PRN PRN Reason: OVERSEDATION Folic Acid (Folic Acid) 1 mg PO DAILY JUAN Stop: 02/04/18 08:59 Last Admin: 01/30/18 09:51 Dose: 1 mg Haloperidol Lactate (Haldol Inj) 2 mg IM Q15M PRN PRN Reason: for severe agitation Last Admin: 01/30/18 05:17 Dose: 2 mg Heparin Sodium (Porcine) (Heparin Inj) 5,000 units SQ Q12HR [facility] Last Admin: 01/30/18 22:00 Dose: 5,000 units Thiamine HCl 100 mg/ Sodium (Chloride) 101 mls @ 100 mls/hr IV.SIG DAILY [facility] Stop: 02/01/18 20:59 Last Infusion: 01/30/18 10:59 Dose: Infused Sodium Chloride (Ns Inj) 1,000 mls @ 100 mls/hr IV.CONT .Q10H [facility] Last Admin: 01/31/18 05:03 Dose: 100 mls/hr Lactulose (Lactulose Liq) 30 ml PO DAILY PRN PRN Reason: SEVERE CONSITIPATION Lorazepam (Ativan) 1 mg PO Q4H PRN PRN Reason: for CIWA 8-10 Lorazepam (Ativan) 2 mg PO Q2H PRN PRN Reason: for CIWA 11-14 Lorazepam (Ativan Inj) 2 mg IV.PUSH Q2H PRN PRN Reason: for CIWA 11-14 Lorazepam (Ativan Inj) 2 mg IV.PUSH Q1H PRN PRN Reason: for CIWA 15-20 Last Admin: 01/31/18 05:03 Dose: 2 mg Lorazepam (Ativan Inj) 1 mg IV.PUSH Q4H PRN PRN Reason: for CIWA 8-10 Last Admin: 01/31/18 00:52 Dose: 1 mg Lorazepam (Ativan Inj) 2 mg IV.PUSH Q15M PRN PRN Reason: for CIWA > 20 Multivitamins/Minerals (Theragran-M) 1 tab PO DAILY [facility] Stop: 02/04/18 08:59 Last Admin: 01/30/18 10:59 Dose: Not Given Ondansetron HCl (Zofran Inj) 4 mg IV.PUSH Q6H PRN PRN Reason: NAUSEA OR VOMITING Senna/Docusate Sodium (Darcie-Colace) 1 tab PO BID [facility] Last Admin: 01/30/18 22:01 Dose: Not Given Sennosides (Senokot) 17.2 mg PO Q12H PRN PRN Reason: Moderate Constipation Sodium Chloride (Ns Flush) 2 ml IV.FLUSH BID JUAN Last Admin: 01/30/18 22:01 Dose: Not Given Sodium Chloride (Ns Flush) 2 ml IV.FLUSH PRN PRN PRN Reason: FLUSH AFTER USING IV ACCESS Thiamine HCl (Vitamin B1) 100 mg PO DAILY [facility]UAN Allergies Allergy/AdvReac Type Severity Reaction Status Date / Time No Known Allergies Allergy Verified 01/29/18 15:00 Home Medications Medication Instructions Recorded Confirmed Type No Known Home Medications 01/29/18 01/29/18 History Exam Vital signs: Vital Signs 01/30/18 08:00 01/30/18 09:56 01/30/18 10:51 Temperature Pulse Rate 78 81 Respiratory Rate 18 18 Blood Pressure 123/68 120/77 136/74 Pulse Oximetry 95 95 01/30/18 10:57 01/30/18 11:00 01/30/18 11:04 Temperature Pulse Rate 66 66 64 Respiratory Rate 15 15 15 Blood Pressure 89/38 L 70/45 L Pulse Oximetry 98 100 100 01/30/18 11:07 01/30/18 12:00 01/30/18 13:00 Temperature 98.8 F Pulse Rate 74 72 100 H Respiratory Rate 16 16 22 Blood Pressure 100/57 L 104/59 L 131/66 Pulse Oximetry 93 L 98 91 L 01/30/18 14:00 01/30/18 14:14 01/30/18 15:00 Temperature 98.2 F Pulse Rate 66 64 64 Respiratory Rate 15 15 15 Blood Pressure 119/63 Pulse Oximetry 96 95 01/30/18 16:00 01/30/18 16:57 01/30/18 17:00 Temperature Pulse Rate 64 64 62 Respiratory Rate 17 20 22 Blood Pressure 121/64 Pulse Oximetry 01/30/18 18:00 01/30/18 18:38 01/30/18 18:41 Temperature Pulse Rate 78 86 Respiratory Rate 20 28 H Blood Pressure 120/69 115/68 Pulse Oximetry 01/30/18 19:00 01/30/18 20:00 01/30/18 21:19 Temperature Pulse Rate 70 78 74 Respiratory Rate 18 24 21 Blood Pressure 120/69 136/74 147/85 H Pulse Oximetry 96 96 01/30/18 22:00 01/30/18 23:00 01/31/18 00:00 Temperature 97.8 F Pulse Rate 74 100 H 80 Respiratory Rate 21 29 H 18 Blood Pressure 133/79 133/88 138/88 Pulse Oximetry 96 96 01/31/18 01:00 01/31/18 02:00 01/31/18 03:00 Temperature Pulse Rate 68 74 109 H Respiratory Rate 19 14 23 Blood Pressure 138/88 135/79 129/89 Pulse Oximetry 96 96 01/31/18 04:00 01/31/18 05:00 01/31/18 06:00 Temperature 97.9 F Pulse Rate 90 96 H 86 Respiratory Rate 16 23 Blood Pressure 130/76 140/77 Pulse Oximetry 97 96 01/31/18 06:19 01/31/18 07:00 Temperature 97.9 F Pulse Rate 74 100 H Respiratory Rate 27 H 26 H Blood Pressure 145/81 H 162/77 H Pulse Oximetry 96 Intake & Output 01/30/18 01/31/18 01/31/18 18:59 06:59 18:59 Intake Total 501 / 501 1700 / 1700 Balance 501 / 501 1700 / 1700 Weight 157 lb 10.088 oz Intake: IV 101 / 101 1700 / 1700 NS Inj 1,000 ML @ 100 mls/hr IV 1700 / 1700 .CONT .Q10H [facility] Rx#:[id number] Thiamine Inj 100 MG In NS Inj 101 / 101 100 ML @ 100 mls/hr IV.SIG DAILY JUAN Rx#:[id number] Oral 400 / 400 Other: # Voids 3 # Urine Diapers 5 Date of Last Bowel Movement 01/31/18 # Bowel Movements 1 Narrative: GENERAL: Well-developed well-nourished. In no acute distress. In four-point restraints. NECK: No carotid bruits. No JVD. CARDIOVASCULAR: Regular rate and rhythm. No murmur appreciated. RESPIRATORY: No accessory muscle use. Clear to auscultation. Breath sounds equal bilaterally. MUSCULOSKELETAL: No clubbing or cyanosis. No edema. NEUROLOGICAL: Awake and alert. Garbled speech. Results 01/30/18 06:00 01/30/18 06:00 Cardiac Enzymes 01/29/18 01/29/18 01/29/18 Range/Units 15:10 15:10 15:10 AST 33 (15-37) U/L CK-MB (CK-2) 4.8 H (0.5-3.6) ng/mL Troponin I Less than 0.02 L (0.02-0.05) ng/mL B-Natriuretic Peptide 49 (0-100) pg/mL 01/29/18 01/29/18 01/30/18 Range/Units 17:25 17:25 06:00 AST 25 (15-37) U/L CK-MB (CK-2) 4.7 H (0.5-3.6) ng/mL Troponin I Less than 0.02 L (0.02-0.05) ng/mL B-Natriuretic Peptide (0-100) pg/mL 01/30/18 01/30/18 Range/Units 16:30 20:32 AST (15-37) U/L CK-MB (CK-2) 3.2 3.9 H (0.5-3.6) ng/mL Troponin I Less than 0.02 L Less than 0.02 L (0.02-0.05) ng/mL B-Natriuretic Peptide (0-100) pg/mL Coagulation 01/29/18 Range/Units 15:10 B-Natriuretic Peptide 49 (0-100) pg/mL CBC 01/29/18 01/30/18 Range/Units 15:10 06:00 WBC 5.5 7.9 (4.0-11.0) th/mm3 RBC 3.49 L 3.17 L (4.50-5.90) mil/mm3 Hgb 12.9 L 11.0 L (13.0-17.0) gm/dL Hct 36.8 L 33.2 L (39.0-51.0) % Plt Count 146 L 143 L (150-450) th/mm3 Neut # (Auto) 3.6 6.7 (1.8-7.7) th/mm3 Lymph # (Auto) 1.2 0.8 L (1.0-4.8) th/mm3 Ponce # (Auto) 0.5 0.1 (0.0-0.9) th/mm3 Eos # (Auto) 0.0 0.0 (0.0-0.4) th/mm3 Baso # (Auto) 0.2 0.3 H (0.0-0.2) th/mm3 Comprehensive Metabolic Panel 01/29/18 01/30/18 Range/Units 15:10 06:00 Sodium 135 L 136 (136-145) meq/L Potassium 4.1 3.6 (3.5-5.1) meq/L Chloride 102 104 (98-107) meq/L Carbon Dioxide 25.4 24.6 (21.0-32.0) meq/L BUN 6 L 6 L (7-18) mg/dL Creatinine 0.69 0.70 (0.60-1.30) mg/dL Calcium 8.0 L 7.6 L (8.5-10.1) mg/dL AST 33 25 (15-37) U/L ALT 18 14 (12-78) U/L Alkaline Phosphatase 90 68 (45-117) U/L Total Protein 7.6 6.9 D (6.4-8.2) g/dL Albumin 3.2 L 2.9 L (3.4-5.0) g/dL Intake and Output 01/30/18 01/31/18 01/31/18 22:59 06:59 14:59 Intake Total 1100 / 1100 1000 / 1000 Balance 1100 / 1100 1000 / 1000 Intake: IV 700 / 700 1000 / 1000 NS Inj 1,000 ML @ 100 mls/hr IV 700 / 700 1000 / 1000 .CONT .Q10H [facility] Rx#:[id number] Oral 400 / 400 Other: # Voids 3 # Urine Diapers 5 Date of Last Bowel Movement 01/30/18 01/31/18 # Bowel Movements 1 Weight 157 lb 10.088 oz - Imaging and Cardiology Imaging: Impressions Chest X-Ray 01/29/18 14:43 CONCLUSION: No acute cardiopulmonary disease. Head CT 01/29/18 16:21 CONCLUSION: Slight chronic small vessel ischemic and atrophic changes, stable ventriculomegaly . Assessment and Plan - Plan 67-year-old male with no known past medical history of than alcohol abuse who was admitted for delirium tremens/alcohol withdrawal. Reportedly the patient presented to the fire station with complaints of palpitations and was found to be in A. fib with RVR and sent to the ED. Paroxysmal atrial fibrillation: Intermittent RVR in the setting of alcohol withdrawal. Start atenolol 50 mg daily for rate control, adjust as needed based on BP/heart rate. Chads vasc 1 for age 67, hold off on anticoagulation for now. Check echocardiogram. We will sign off for now. Please call with any questions. Discussed Condition With: Patient, RN, Dr. Jorgensen
[2018-01-31] MEDS: Heparin - SQ 10,000 UNITS/ML Vial SQ SCH ×2 (09:15→22:30)
[2018-01-31] MEDS: Multivitamin/Minerals Therapeutic Tablet PO SCH (09:15)
[2018-01-31] MEDS: Folic Acid 1 MG Tablet PO SCH (09:15)
[2018-01-31] MEDS: Atenolol 50 MG Tablet PO SCH (09:15)
[2018-01-31] MEDS: Senna/Docusate Sodium 8.6/50 MG Tablet PO SCH ×2 (09:15→22:30)
[2018-01-31] MEDS: Thiamine Inj 100 MG in Sodium Chlor 0.9% Inj 100 ML IV.SIG SCH (10:34)
--- NOTE | 2018-01-31 11:40 | P.PNIM ---
Subjective Interval history: 67-year-old male who is seen examined today for follow-up on paroxysmal atrial fibrillation, alcohol withdrawal. Patient resting comfortably in bed with caregiver at bedside. According nursing staff patient was just medicated with Ativan for CIWA score of 13. Patient patient still alert enough to indicate how much alcohol he drinks, how he gets to the liquor store to buy it on a daily basis. Vital signs with mildly elevated blood pressure, patient remains afebrile Physical Exam Vital signs: Vital Signs 01/30/18 12:00 01/30/18 13:00 01/30/18 14:00 Temperature 98.8 F Pulse Rate 72 100 H 66 Respiratory Rate 16 22 15 Blood Pressure 104/59 L 131/66 Pulse Oximetry 98 91 L 96 01/30/18 14:14 01/30/18 15:00 01/30/18 16:00 Temperature 98.2 F Pulse Rate 64 64 64 Respiratory Rate 15 15 17 Blood Pressure 119/63 Pulse Oximetry 95 01/30/18 16:57 01/30/18 17:00 01/30/18 18:00 Temperature Pulse Rate 64 62 78 Respiratory Rate 20 22 20 Blood Pressure 121/64 120/69 Pulse Oximetry 01/30/18 18:38 01/30/18 18:41 01/30/18 19:00 Temperature Pulse Rate 86 70 Respiratory Rate 28 H 18 Blood Pressure 115/68 120/69 Pulse Oximetry 01/30/18 20:00 01/30/18 21:19 01/30/18 22:00 Temperature Pulse Rate 78 74 74 Respiratory Rate 24 21 21 Blood Pressure 136/74 147/85 H 133/79 Pulse Oximetry 96 96 96 01/30/18 23:00 01/31/18 00:00 01/31/18 01:00 Temperature 97.8 F Pulse Rate 100 H 80 68 Respiratory Rate 29 H 18 19 Blood Pressure 133/88 138/88 138/88 Pulse Oximetry 96 96 01/31/18 02:00 01/31/18 03:00 01/31/18 04:00 Temperature 97.9 F Pulse Rate 74 109 H 90 Respiratory Rate 14 23 16 Blood Pressure 135/79 129/89 130/76 Pulse Oximetry 96 97 01/31/18 05:00 01/31/18 06:00 01/31/18 06:19 Temperature Pulse Rate 96 H 86 74 Respiratory Rate 23 27 H Blood Pressure 140/77 145/81 H Pulse Oximetry 96 96 01/31/18 07:00 Temperature 97.9 F Pulse Rate 100 H Respiratory Rate 26 H Blood Pressure 162/77 H Pulse Oximetry Intake & Output 01/30/18 01/31/18 01/31/18 18:59 06:59 18:59 Intake Total 501 / 501 1700 / 1700 Balance 501 / 501 1700 / 1700 Weight 71.5 kg Intake: IV 101 / 101 1700 / 1700 NS Inj 1,000 ML @ 100 mls/hr IV 1700 / 1700 .CONT .Q10H [facility]UAN Rx#:[id number] Thiamine Inj 100 MG In NS Inj 101 / 101 100 ML @ 100 mls/hr IV.SIG DAILY JUAN Rx#:[id number] Oral 400 / 400 Other: # Voids 3 # Urine Diapers 5 Date of Last Bowel Movement 01/31/18 # Bowel Movements 1 Narrative: GENERAL: Well-developed, well-nourished, in no acute distress. alert and orientated to person only HEENT: Head is normocephalic without any lesions or masses noted. Facial features are symmetric. Eyes: Extraocular muscles are intact. Conjunctivae were clear. NECK: Supple without any masses. Trachea midline no deviation. No JVD, CARDIAC: Regular rhythm, regular rate. S1/S2 are heard. No murmurs gallops or rubs. LUNGS: Clear to auscultation bilaterally. No wheeze, rhonchi or rales. No use of accessory muscles on inspiration or expiration. ABDOMEN: Soft, nontender. Nondistended. Bowel sounds heard in all 4 quadrants. No organomegaly or masses. Negative rebound, negative guarding EXTREMITIES: No edema, pulses are equal bilaterally. No cyanosis or clubbing NEUROLOGY: Mood and affect appear appropriate. Cranial nerves II through XII grossly intact. Moving all extremities, speech is clear - Urinary Catheter Management Straight Cath placed during this visit: no Results - Labs CBC & Chem 7: 01/30/18 06:00 01/30/18 06:00 Laboratory Results - last 24 hr 01/30/18 01/30/18 01/30/18 16:30 17:26 20:32 POC Glucose 96 Total Creatine Kinase 363 H 421 H CK-MB (CK-2) 3.2 3.9 H CK-MB (CK-2) % 0.9 0.9 Troponin I Less than 0.02 L Less than 0.02 L 01/30/18 01/31/18 21:56 11:19 POC Glucose 105 74 Total Creatine Kinase CK-MB (CK-2) CK-MB (CK-2) % Troponin I Assessment and Plan - Assessment (1) Alcohol dependence with intoxication Code(s): F10.229 - Alcohol dependence with intoxication, unspecified Status: Acute (2) Palpitation Code(s): R00.2 - Palpitations Status: Acute - Plan Paroxysmal atrial fibrillation -Patient ruled out for acute coronary event with serial cardiac enzymes that are negative, -Serial EKGs were reviewed and initial EKG showed likely atrial relation with RVR, follow-up EKG shows sinus rhythm without any changes -Patient started on atenolol for rate control -CHADS2 score of 1, no anticoagulation at this time -Cardiology evaluated the patient indicated that H fibrillation likely secondary to alcohol withdrawal, started atenolol for rate control, no anticoagulation at this time. Cardiology has signed off. Chronic alcohol abuse with acute alcohol withdrawal and DTs -Head CT showing no acute findings. Shows some chronic small vessel ischemia and atrophic changes, stable ventriculomegaly. -CIWA protocol in place. Monitor vitals and labs. -Close monitoring. -Seizure precautions. -Continue thiamine, folate and multivitamin. CK-MB slowly elevating, possible early rhabdomyolysis -Continue IV fluids -Monitor CPK DVT Prophylaxis: -Sequential compression devices -Subcutaneous heparin (1) Alcohol dependence with intoxication Qualifiers: Complication of substance-induced condition: uncomplicated Qualified Code(s) : F10.220 - Alcohol dependence with intoxication, uncomplicated
--- NOTE | 2018-01-31 13:21 | ECHRPT ---
Indication: Atrial Fib and Flutter CONCLUSIONS Normal left ventricular size. Wall thickness is measured at the upper limits of normal. The left ventricular systolic function is normal with an estimated ejection fraction in the range of 55-60%. No regional wall motion abnormalities are present. Trace mitral valve regurgitation. Trileaflet aortic valve. Minimal aortic valve sclerosis is present. There is trace tricuspid valve regurgitation. The estimated pulmonary arterial pressure is 35 mmHg. BP: 128 / 97 HR: 77 Rhythm: MEASUREMENTS (Male / Female) Normal Values Technical Quality:Fair 2D ECHO LV Diastolic Diameter PLAX 4.2 cm 4.2 - 5.9 / 3.9 - 5.3 cm LV Systolic Diameter PLAX 2.8 cm IVS Diastolic Thickness 1.0 cm 0.6 - 1.0 / 0.6 - 0.9 cm LVPW Diastolic Thickness 1.0 cm 0.6 - 1.0 / 0.6 - 0.9 cm LV Relative Wall Thickness 0.5 RV Internal Dim ED PLAX 3.3 cm LVOT Diameter 2.2 cm Aortic Root Diameter 3.8 cm LA Systolic Diameter LX 2.9 cm 3.0 - 4.0 / 2.7 - 3.8 cm M-MODE AV Cusp Separation MM 2.0 cm DOPPLER AV Peak Velocity 119.0 cm/s AV Peak Gradient 5.7 mmHg LVOT Peak Velocity 85.4 cm/s LVOT Peak Gradient 2.9 mmHg AV Area Cont Eq pk 2.7 cm Mitral E Point Velocity 76.0 cm/s Mitral A Point Velocity 82.9 cm/s Mitral E to A Ratio 0.9 LV E' Lateral Velocity 9.7 cm/s Mitral E to LV E' Lateral Ratio 7.9 LV E' Septal Velocity 8.7 cm/s Mitral E to LV E' Septal Ratio 8.8 TR Peak Velocity 249.0 cm/s TR Peak Gradient 24.8 mmHg Right Atrial Pressure 10.0 mmHg Pulmonary Artery Systolic Pressu 34.8 mmHg Right Ventricular Systolic Press 34.8 mmHg PV Peak Velocity 89.6 cm/s PV Peak Gradient 3.2 mmHg FINDINGS LEFT VENTRICLE Normal left ventricular size. Wall thickness is measured at the upper limits of normal. The left ventricular systolic function is normal with an estimated ejection fraction in the range of 55-60%. No regional wall motion abnormalities are present. RIGHT VENTRICLE Normal right ventricular size and systolic function. LEFT ATRIUM The left atrial size is normal. RIGHT ATRIUM The right atrial size is normal. ATRIAL SEPTUM Normal atrial septal thickness without atrial level shunting by limited color doppler interrogation. AORTA The aortic root and proximal ascending aorta are normal in size on limited imaging. MITRAL VALVE Trace mitral valve regurgitation. AORTIC VALVE Trileaflet aortic valve. Minimal aortic valve sclerosis is present. TRICUSPID VALVE There is trace tricuspid valve regurgitation. The estimated pulmonary arterial pressure is 35 mmHg. PULMONARY VALVE No pulmonary valve regurgitation or stenosis. VESSELS The inferior vena cava is normal in size. PERICARDIUM No pericardial effusion. Erik Tellez MD (Electronically Signed) Final Date:31 January 2018 13:19
--- NOTE | 2018-01-31 16:56 | ECG ---
Date Performed: 01/30/2018 Time Performed: 20:36:36 PTAGE: 67 years EKG: SINUS BRADYCARDIA BORDERLINE ECG PREVIOUS TRACING : 01/30/2018 16.24 Since the previous tracing, no significant change noted DOCTOR: Roman Conteh Interpretating Date/Time 01/31/2018 16:54:38
--- NOTE | 2018-01-31 16:56 | ECG ---
Date Performed: 01/30/2018 Time Performed: 16:24:34 PTAGE: 67 years EKG: SINUS BRADYCARDIA WITH FIRST DEGREE AV BLOCK ABNORMAL ECG PREVIOUS TRACING : 01/29/2018 17.43 Since the previous tracing, no significant change noted DOCTOR: Roman Conteh Interpretating Date/Time 01/31/2018 16:54:25
[2018-02-01 06:15] LABS: CKMB Percent 1.1 % (0.0-4.0)
[2018-02-01] MEDS: Heparin - SQ 10,000 UNITS/ML Vial SQ SCH ×2 (09:16→20:42)
[2018-02-01] MEDS: Sod Chloride 0.9% Inj 1,000 ML IV.CONT SCH ×3 (09:17→20:43)
[2018-02-01] MEDS: Folic Acid 1 MG Tablet PO SCH (09:19)
[2018-02-01] MEDS: Multivitamin/Minerals Therapeutic Tablet PO SCH (09:19)
[2018-02-01] MEDS: Senna/Docusate Sodium 8.6/50 MG Tablet PO SCH ×2 (09:19→20:53)
[2018-02-01] MEDS: Atenolol 50 MG Tablet PO SCH (09:19)
[2018-02-01] MEDS: Thiamine Inj 100 MG in Sodium Chlor 0.9% Inj 100 ML IV.SIG SCH (09:20)
--- NOTE | 2018-02-01 13:47 | P.PNIM ---
Subjective Interval history: 67-year-old male is seen examined today for follow-up on altered mentation, alcohol withdrawal. Patient still with significant altered mentation. CIWA score is still 1115. Vital signs blood pressure mildly elevated. Patient remains afebrile. Physical Exam Vital signs: Vital Signs 01/31/18 14:00 01/31/18 14:54 01/31/18 16:00 Temperature Pulse Rate 69 76 74 Respiratory Rate 27 H Blood Pressure 154/80 H Pulse Oximetry 97 01/31/18 16:04 01/31/18 17:00 01/31/18 18:00 Temperature 98.4 F Pulse Rate 62 66 74 Respiratory Rate 19 18 Blood Pressure 159/84 H 154/84 H Pulse Oximetry 100 99 01/31/18 18:15 01/31/18 19:00 01/31/18 20:00 Temperature Pulse Rate 84 68 72 Respiratory Rate 31 H 21 22 Blood Pressure 145/77 H 145/77 H 163/88 H Pulse Oximetry 99 97 97 01/31/18 21:00 01/31/18 22:00 01/31/18 23:00 Temperature 98.1 F Pulse Rate 80 72 86 Respiratory Rate 20 20 26 H Blood Pressure 157/90 H 158/87 H 148/94 H Pulse Oximetry 97 98 98 02/01/18 00:00 02/01/18 01:00 02/01/18 01:15 Temperature 98.0 F Pulse Rate 68 86 70 Respiratory Rate 19 26 H 20 Blood Pressure 177/79 H 162/77 H 154/81 H Pulse Oximetry 98 96 96 02/01/18 02:00 02/01/18 02:15 02/01/18 03:00 Temperature Pulse Rate 73 84 84 Respiratory Rate 21 22 Blood Pressure 155/82 H 143/89 H Pulse Oximetry 97 96 02/01/18 04:00 02/01/18 05:15 02/01/18 06:00 Temperature 98.9 F Pulse Rate 88 90 86 Respiratory Rate 22 24 21 Blood Pressure 165/98 H 168/86 H 140/98 H Pulse Oximetry 96 96 96 02/01/18 08:00 Temperature 98.1 F Pulse Rate 84 Respiratory Rate 23 Blood Pressure 142/93 H Pulse Oximetry 96 Intake & Output 01/31/18 02/01/18 02/01/18 18:59 06:59 18:59 Intake Total 1101 / 1101 101 / 101 Balance 1101 / 1101 101 / 101 Weight 72.7 kg Intake: IV 1101 / 1101 101 / 101 NS Inj 1,000 ML @ 100 mls/hr IV 1000 / 1000 0 / 0 .CONT .Q10H [facility] Rx#:[id number] Thiamine Inj 100 MG In NS Inj / 101 101 / 101 100 ML @ 100 mls/hr IV.SIG DAILY [facility]UAN Rx#:[id number] Other: # Voids 4 # Urine Diapers 5 Date of Last Bowel Movement 01/30/18 01/31/18 Narrative: GENERAL: Well-developed, well-nourished, in no acute distress. alert and orientated to person only HEENT: Head is normocephalic without any lesions or masses noted. Facial features are symmetric. Eyes: Extraocular muscles are intact. Conjunctivae were clear. NECK: Supple without any masses. Trachea midline no deviation. No JVD, CARDIAC: Regular rhythm, regular rate. S1/S2 are heard. No murmurs gallops or rubs. LUNGS: Clear to auscultation bilaterally. No wheeze, rhonchi or rales. No use of accessory muscles on inspiration or expiration. ABDOMEN: Soft, nontender. Nondistended. Bowel sounds heard in all 4 quadrants. No organomegaly or masses. Negative rebound, negative guarding EXTREMITIES: No edema, pulses are equal bilaterally. No cyanosis or clubbing NEUROLOGY: Mood and affect appear appropriate. Cranial nerves II through XII grossly intact. Moving all extremities, speech is clear - Urinary Catheter Management Straight Cath placed during this visit: no Results - Labs CBC & Chem 7: 01/30/18 06:00 01/30/18 06:00 Laboratory Results - last 24 hr 01/31/18 01/31/18 02/01/18 16:08 23:01 04:30 POC Glucose 93 112 H Total Creatine Kinase 1023 H CK-MB (CK-2) 11.0 H CK-MB (CK-2) % 1.1 02/01/18 12:15 POC Glucose 102 Total Creatine Kinase CK-MB (CK-2) CK-MB (CK-2) % Assessment and Plan - Assessment (1) Alcohol dependence with intoxication Code(s): F10.229 - Alcohol dependence with intoxication, unspecified Status: Acute (2) Palpitation Code(s): R00.2 - Palpitations Status: Acute - Plan Chronic alcohol abuse with acute alcohol withdrawal and DTs -Head CT showing no acute findings. Shows some chronic small vessel ischemia and atrophic changes, stable ventriculomegaly. -CIWA protocol in place. Monitor vitals and labs. -Close monitoring. -Seizure precautions. -Continue thiamine, folate and multivitamin. Rhabdomyolysis -Increase IV fluid rate -Monitor CPK -Check urine myoglobin Paroxysmal atrial fibrillation -Patient ruled out for acute coronary event with serial cardiac enzymes that are negative, -Serial EKGs were reviewed and initial EKG showed likely atrial relation with RVR, follow-up EKG shows sinus rhythm without any changes -Continue atenolol for rate control -CHADS2 score of 1, no anticoagulation at this time -Cardiology evaluated the patient indicated that Atrial fibrillation likely secondary to alcohol withdrawal, started atenolol for rate control, no anticoagulation at this time. Cardiology has signed off. DVT Prophylaxis: -Sequential compression devices -Subcutaneous heparin (1) Alcohol dependence with intoxication Qualifiers: Complication of substance-induced condition: uncomplicated Qualified Code(s) : F10.220 - Alcohol dependence with intoxication, uncomplicated
[2018-02-02] MEDS: Sod Chloride 0.9% Inj 1,000 ML IV.CONT SCH ×6 (01:26→23:47)
[2018-02-02 05:58] LABS: CKMB Percent 1.4 % (0.0-4.0); Creatine Kinase MB 11.1 ng/mL (0.5-3.6)
[2018-02-02] MEDS: Multivitamin/Minerals Therapeutic Tablet PO SCH ×2 (07:41→08:24)
[2018-02-02] MEDS: Folic Acid 1 MG Tablet PO SCH ×2 (07:41→08:24)
[2018-02-02] MEDS: Atenolol 50 MG Tablet PO SCH ×2 (07:41→08:24)
[2018-02-02] MEDS: Heparin - SQ 10,000 UNITS/ML Vial SQ SCH ×3 (07:41→20:55)
[2018-02-02] MEDS: Senna/Docusate Sodium 8.6/50 MG Tablet PO SCH ×2 (08:24→20:57)
--- NOTE | 2018-02-02 11:48 | P.PNIM ---
Subjective Interval history: 67-year-old male who is seen examined today for follow-up on alcohol withdrawal, altered mental status, rhabdomyolysis. Second day in a row that the patient has been very lethargic, very difficult to arouse and speaking well. CIWA scores have been elevated at 10-11 throughout the night. Last dose of Ativan was given yesterday at 1700. The patient still has significant decreased level of consciousness whenever I examine him. Will need further evaluation. Vital signs appear to be stable. Patient remains afebrile. Physical Exam Vital signs: Vital Signs 02/01/18 12:00 02/01/18 12:15 02/01/18 13:00 Temperature Pulse Rate 80 74 66 Respiratory Rate 22 20 24 Blood Pressure 138/82 Pulse Oximetry 98 97 98 02/01/18 14:00 02/01/18 14:15 02/01/18 15:00 Temperature Pulse Rate 80 80 76 Respiratory Rate 22 27 H 21 Blood Pressure 161/90 H Pulse Oximetry 98 98 97 02/01/18 15:15 02/01/18 16:00 02/01/18 16:15 Temperature Pulse Rate 68 72 74 Respiratory Rate 19 19 25 H Blood Pressure 144/71 H 151/88 H Pulse Oximetry 97 99 98 02/01/18 17:00 02/01/18 17:15 02/01/18 18:00 Temperature Pulse Rate 72 64 68 Respiratory Rate 20 18 20 Blood Pressure 142/68 H Pulse Oximetry 97 98 02/01/18 18:15 02/01/18 19:15 02/01/18 20:00 Temperature 98.1 F Pulse Rate 58 L 84 Respiratory Rate 13 23 Blood Pressure 126/53 L 121/60 Pulse Oximetry 97 02/01/18 20:15 02/01/18 21:00 02/01/18 21:15 Temperature Pulse Rate 76 68 62 Respiratory Rate 19 19 18 Blood Pressure 137/73 153/76 H Pulse Oximetry 02/01/18 22:00 02/01/18 22:15 02/01/18 23:00 Temperature Pulse Rate 76 64 66 Respiratory Rate 19 17 17 Blood Pressure 148/87 H 162/82 H Pulse Oximetry 97 02/02/18 00:00 02/02/18 01:00 02/02/18 02:00 Temperature 99.1 F Pulse Rate 74 68 79 Respiratory Rate 16 17 21 Blood Pressure 166/93 H 163/69 H 114/81 Pulse Oximetry 97 98 94 L 02/02/18 03:00 02/02/18 04:00 02/02/18 05:00 Temperature 98.4 F Pulse Rate 72 66 62 Respiratory Rate 18 16 Blood Pressure 173/94 H 149/76 H Pulse Oximetry 97 02/02/18 06:00 02/02/18 07:00 02/02/18 08:00 Temperature 98.2 F Pulse Rate 98 H 68 76 Respiratory Rate 24 22 18 Blood Pressure 161/88 H 148/81 H 156/84 H Pulse Oximetry 97 98 99 02/02/18 09:00 02/02/18 10:00 Temperature Pulse Rate 74 60 Respiratory Rate 22 22 Blood Pressure 147/84 H 135/60 Pulse Oximetry 98 98 Intake & Output 02/01/18 02/02/18 02/02/18 18:59 06:59 18:59 Intake Total 1061 / 1061 2240 / 2240 Output Total 200 / 200 Balance 861 / 861 2240 / 2240 Weight 72.3 kg Intake: IV 101 / 101 1999 NS Inj 1,000 ML @ 200 mls/hr IV 0 / 0 1999 .CONT .Q5H [facility] Rx#:[id number] Thiamine Inj 100 MG In NS Inj 101 / 101 100 ML @ 100 mls/hr IV.SIG DAILY [facility] Rx#:[id number] Oral 960 / 960 240 / 240 Output: Urine 200 / 200 Other: # Incontinent Voids 4 # Urine Diapers 4 Date of Last Bowel Movement 02/01/18 01/31/18 01/31/18 # Bowel Movements 2 2 # Incontinent Bowel Movements 2 2 Narrative: GENERAL: Well-developed, well-nourished, in no acute distress. Very lethargic, only groaning HEENT: Head is normocephalic without any lesions or masses noted. Facial features are symmetric. CARDIAC: Regular rhythm, regular rate. S1/S2 are heard. No murmurs gallops or rubs. LUNGS: Clear to auscultation bilaterally. No wheeze, rhonchi or rales. No use of accessory muscles on inspiration or expiration. ABDOMEN: Soft, nontender. Nondistended. Bowel sounds heard in all 4 quadrants. No organomegaly or masses. Negative rebound, negative guarding EXTREMITIES: No edema, pulses are equal bilaterally. No cyanosis or clubbing NEUROLOGY: Very lethargic unable to ascertain mood and affect - Urinary Catheter Management Straight Cath placed during this visit: no Results - Labs CBC & Chem 7: 01/30/18 06:00 01/30/18 06:00 Laboratory Results - last 24 hr 02/01/18 02/01/18 02/01/18 12:15 18:22 21:16 POC Glucose 102 102 124 H Total Creatine Kinase CK-MB (CK-2) CK-MB (CK-2) % 02/02/18 02/02/18 04:25 07:31 POC Glucose 92 Total Creatine Kinase 805 H CK-MB (CK-2) 11.1 H CK-MB (CK-2) % 1.4 Assessment and Plan - Assessment (1) Alcohol dependence with intoxication Code(s): F10.229 - Alcohol dependence with intoxication, unspecified Status: Acute (2) Palpitation Code(s): R00.2 - Palpitations Status: Acute - Plan Chronic alcohol abuse with acute alcohol withdrawal and DTs -Head CT showing no acute findings. Shows some chronic small vessel ischemia and atrophic changes, stable ventriculomegaly. -CIWA protocol in place. Monitor vitals and labs. -Close monitoring. -Seizure precautions. -Continue thiamine, folate and multivitamin. Altered mental status -Likely secondary to alcohol withdrawal, medication side effect, hepatic encephalopathy -Previous CT did not indicate any acute abnormality -Obtain ammonia level, RPR, B12, folate, CBC, CMP Rhabdomyolysis, improving -Continue IV fluid -Monitor CPK -Check urine myoglobin Paroxysmal atrial fibrillation -Patient ruled out for acute coronary event with serial cardiac enzymes that are negative, -Serial EKGs were reviewed and initial EKG showed likely atrial relation with RVR, follow-up EKG shows sinus rhythm without any changes -Continue atenolol for rate control -CHADS2 score of 1, no anticoagulation at this time -Cardiology evaluated the patient indicated that Atrial fibrillation likely secondary to alcohol withdrawal, started atenolol for rate control, no anticoagulation at this time. Cardiology has signed off. DVT Prophylaxis: -Sequential compression devices -Subcutaneous heparin (1) Alcohol dependence with intoxication Qualifiers: Complication of substance-induced condition: uncomplicated Qualified Code(s) : F10.220 - Alcohol dependence with intoxication, uncomplicated
[2018-02-02 12:17] LABS: Baso % (Auto) 0.9 % (0.0-2.0); Eos # (Auto) 0.1 th/mm3 (0.0-0.4); Eos % (Auto) 2.4 % (0.0-4.0); Hematocrit 33.9 % (39.0-51.0); Hemoglobin 11.3 gm/dL (13.0-17.0); Lymph % (Auto) 23.2 % (9.0-44.0); Mean Corpuscular HGB Conc 33.4 % (32.0-36.0); Mean Corpuscular Hemoglobin 35.1 pg (27.0-34.0); Mean Corpuscular Volume 105.2 fL (80.0-100.0); Mean Platelet Volume 7.7 fL (7.0-11.0); Mono # (Auto) 0.6 th/mm3 (0.0-0.9); Mono % (Auto) 13.3 % (0.0-8.0); Neut # (Auto) 2.6 th/mm3 (1.8-7.7); Neut % (Auto) 60.2 % (16.0-70.0); Platelet Count 110 th/mm3 (150-450); Red Blood Count 3.23 mil/mm3 (4.50-5.90); White Blood Count 4.3 th/mm3 (4.0-11.0)
[2018-02-02 14:12] LABS: Chloride 103 meq/L (98-107); Potassium 3.1 meq/L (3.5-5.1); Sodium 136 meq/L (136-145)
[2018-02-02 14:15] LABS: Calcium 7.5 mg/dL (8.5-10.1)
[2018-02-02 14:16] LABS: Albumin 2.8 g/dL (3.4-5.0); Anion Gap 9 meq/L (5-15); Blood Urea Nitrogen 3 mg/dL (7-18); Carbon Dioxide 23.7 meq/L (21.0-32.0); Glucose,Random 78 mg/dL (74-106)
[2018-02-02 14:19] LABS: Alanine Aminotransferase 22 U/L (12-78); Aspartate Aminotransferase 49 U/L (15-37); Glomerular Filtration Rate Greater Than 89 mL/min (>89)
[2018-02-02 14:20] LABS: Total Protein 6.6 g/dL (6.4-8.2)
[2018-02-02 14:21] LABS: Alkaline Phosphatase 64 U/L (45-117)
[2018-02-02 14:46] LABS: Vitamin B12 204 pg/mL (193-986)
[2018-02-02] MEDS ORDERED: Potassium Chloride 25 MEQ Effervescent Tablet PO ONE (17:00)
[2018-02-02] MEDS ORDERED: Potassium Chloride 20 MEQ Pwd Pkt PO ONE (18:00)
[2018-02-02] MEDS: LORazepam 1 MG Tablet PO PRN (23:49)
[2018-02-03] MEDS: Sod Chloride 0.9% Inj 1,000 ML IV.CONT SCH ×4 (04:51→19:56)
[2018-02-03 07:55] LABS: CKMB Percent 1.1 % (0.0-4.0); Creatine Kinase MB 6.8 ng/mL (0.5-3.6)
--- NOTE | 2018-02-03 08:48 | P.PNIM ---
Subjective Interval history: 67-year-old male seen examined today for follow-up on alcohol withdrawal. Patient appears to be doing much better. He is sitting up in chair eating breakfast on his own. Mild tremors in his extremities. Denies any new complaints. Vital signs are stable. Patient remains afebrile. Physical Exam Vital signs: Vital Signs 02/02/18 09:00 02/02/18 10:00 02/02/18 11:00 Temperature Pulse Rate 74 60 84 Respiratory Rate 22 22 25 H Blood Pressure 147/84 H 135/60 100/66 Pulse Oximetry 98 98 97 02/02/18 12:00 02/02/18 13:00 02/02/18 14:00 Temperature Pulse Rate 88 96 H 69 Respiratory Rate 20 18 Blood Pressure 115/64 116/62 138/67 Pulse Oximetry 97 97 02/02/18 15:00 02/02/18 16:00 02/02/18 17:00 Temperature 98.6 F 98.6 F Pulse Rate 66 71 67 Respiratory Rate 18 18 Blood Pressure 129/68 120/66 115/72 Pulse Oximetry 02/02/18 18:00 02/02/18 19:00 02/02/18 21:45 Temperature 99 F 98.7 F Pulse Rate 66 68 64 Respiratory Rate 18 25 H 20 Blood Pressure 132/67 129/78 158/78 H Pulse Oximetry 96 99 02/02/18 23:00 02/03/18 00:00 02/03/18 04:52 Temperature 98 F 99 F Pulse Rate 64 63 Respiratory Rate 20 20 18 Blood Pressure 158/78 H 137/65 Pulse Oximetry 99 100 Intake & Output 02/02/18 02/03/18 02/03/18 18:59 06:59 18:59 Intake Total 1999 Output Total 1200 / 1200 Balance 800 / 800 1999 Weight 73.6 kg Intake: IV 1999 NS Inj 1,000 ML @ 200 mls/hr IV 1999 .CONT .Q5H [facility] Rx#:[id number] Output: Urine 1200 / 1200 Other: Date of Last Bowel Movement 01/31/18 01/31/18 Weight On Admission 73.6 kg Narrative: GENERAL: Well-developed, well-nourished, in no acute distress. Patient is much more alert, orientated at this time HEENT: Head is normocephalic without any lesions or masses noted. Facial features are symmetric. No nystagmus CARDIAC: Regular rhythm, regular rate. S1/S2 are heard. No murmurs gallops or rubs. LUNGS: Clear to auscultation bilaterally. No wheeze, rhonchi or rales. No use of accessory muscles on inspiration or expiration. ABDOMEN: Soft, nontender. Nondistended. Bowel sounds heard in all 4 quadrants. No organomegaly or masses. Negative rebound, negative guarding EXTREMITIES: No edema, pulses are equal bilaterally. No cyanosis or clubbing NEUROLOGY: Mood and affect appear appropriate. Mild extremity tremors - Urinary Catheter Management Straight Cath placed during this visit: no Results - Labs CBC & Chem 7: 02/02/18 12:10 02/02/18 12:10 Laboratory Results - last 24 hr 02/02/18 02/02/18 02/02/18 11:55 12:10 12:10 CBC w Diff WBC RBC Hgb Hct MCV MCH MCHC RDW Plt Count MPV Neut % (Auto) Lymph % (Auto) [place] % (Auto) Eos % (Auto) Baso % (Auto) Neut # (Auto) Lymph # (Auto) [place] # (Auto) Eos # (Auto) Baso # (Auto) WBC Differential Differential Comment Sodium 136 Potassium 3.1 L Chloride 103 Carbon Dioxide 23.7 Anion Gap 9 BUN 3 L Creatinine 0.46 L Estimated GFR Greater than 89 POC Glucose 101 Random Glucose 78 Calcium 7.5 L Total Bilirubin 0.6 AST 49 H ALT 22 Alkaline Phosphatase 64 Ammonia 19 Total Creatine Kinase CK-MB (CK-2) CK-MB (CK-2) % Total Protein 6.6 Albumin 2.8 L Vitamin B12 204 Folate Greater than 20.0 H 02/02/18 02/02/18 02/02/18 12:10 16:42 21:21 CBC w Diff Auto diff final WBC 4.3 RBC 3.23 L Hgb 11.3 L Hct 33.9 L MCV 105.2 H MCH 35.1 H MCHC 33.4 RDW 16.0 Plt Count 110 L MPV 7.7 Neut % (Auto) 60.2 Lymph % (Auto) 23.2 [place] % (Auto) 13.3 H Eos % (Auto) 2.4 Baso % (Auto) 0.9 Neut # (Auto) 2.6 Lymph # (Auto) 1.0 [place] # (Auto) 0.6 Eos # (Auto) 0.1 Baso # (Auto) 0.0 WBC Differential . Differential Comment . Sodium Potassium Chloride Carbon Dioxide Anion Gap BUN Creatinine Estimated GFR POC Glucose 137 H 120 H Random Glucose Calcium Total Bilirubin AST ALT Alkaline Phosphatase Ammonia Total Creatine Kinase CK-MB (CK-2) CK-MB (CK-2) % Total Protein Albumin Vitamin B12 Folate 02/03/18 06:05 CBC w Diff WBC RBC Hgb Hct MCV MCH MCHC RDW Plt Count MPV Neut % (Auto) Lymph % (Auto) [place] % (Auto) Eos % (Auto) Baso % (Auto) Neut # (Auto) Lymph # (Auto) [place] # (Auto) Eos # (Auto) Baso # (Auto) WBC Differential Differential Comment Sodium Potassium Chloride Carbon Dioxide Anion Gap BUN Creatinine Estimated GFR POC Glucose Random Glucose Calcium Total Bilirubin AST ALT Alkaline Phosphatase Ammonia Total Creatine Kinase 601 H CK-MB (CK-2) 6.8 H CK-MB (CK-2) % 1.1 Total Protein Albumin Vitamin B12 Folate Assessment and Plan - Assessment (1) Alcohol dependence with intoxication Code(s): F10.229 - Alcohol dependence with intoxication, unspecified Status: Acute (2) Palpitation Code(s): R00.2 - Palpitations Status: Acute - Plan Chronic alcohol abuse with acute alcohol withdrawal and DTs -Head CT showing no acute findings. Shows some chronic small vessel ischemia and atrophic changes, stable ventriculomegaly. -WA protocol in place. Monitor vitals and labs. -Start Librium 10 mg every 6 hours -Close monitoring. -Seizure precautions. -Continue thiamine, folate and multivitamin. Altered mental status, resolved -Likely secondary to alcohol withdrawal, medication side effect, hepatic encephalopathy -Previous CT did not indicate any acute abnormality -Laboratory studies are relatively unremarkable, some mild B12 deficiency Rhabdomyolysis, improving -Continue IV fluid -Monitor CPK -Awaiting urine myoglobin B12 deficiency -Status post vitamin B12 1000 mcg IM -Continue B12 1000 mcg p.o. daily Paroxysmal atrial fibrillation -Patient ruled out for acute coronary event with serial cardiac enzymes that are negative, -Serial EKGs were reviewed and initial EKG showed likely atrial relation with RVR, follow-up EKG shows sinus rhythm without any changes -Continue atenolol for rate control -CHADS2 score of 1, no anticoagulation at this time -Cardiology evaluated the patient indicated that Atrial fibrillation likely secondary to alcohol withdrawal, started atenolol for rate control, no anticoagulation at this time. Cardiology has signed off. DVT Prophylaxis: -Sequential compression devices -Subcutaneous heparin (1) Alcohol dependence with intoxication Qualifiers: Complication of substance-induced condition: uncomplicated Qualified Code(s) : F10.220 - Alcohol dependence with intoxication, uncomplicated
[2018-02-03] MEDS: Folic Acid 1 MG Tablet PO SCH (09:43)
[2018-02-03] MEDS: Heparin - SQ 10,000 UNITS/ML Vial SQ SCH ×2 (09:43→21:47)
[2018-02-03] MEDS: Senna/Docusate Sodium 8.6/50 MG Tablet PO SCH ×2 (09:43→21:46)
[2018-02-03] MEDS: Multivitamin/Minerals Therapeutic Tablet PO SCH (09:43)
[2018-02-03] MEDS: Atenolol 50 MG Tablet PO SCH (09:43)
[2018-02-03] MEDS: LORazepam 1 MG Tablet PO PRN (09:48)
[2018-02-04] MEDS: Sod Chloride 0.9% Inj 1,000 ML IV.CONT SCH ×3 (00:49→11:30)
[2018-02-04 08:42] LABS: CKMB Percent 1.1 % (0.0-4.0)
--- NOTE | 2018-02-04 10:57 | P.DS ---
DS: Providers Date of admission: 01/29/18 19:42 Primary care physician: [facility] Consults: 01/30/18 14:16 Consult to Cardiology Routine Consulting Provider: Anthony Arora Does the patient have a Systems Requirements Planner who follows them?: No Preferred Systems Technician:: Electronic Warfare Operator Physician Reason for Consultation: new onset a fib Notified:: Office Spoke with:: ZACH Date Notified:: 01/30/18 Time Notified:: 14:20 Ordering Provider: MACHO Brief History from admission: This is a 67-year-old male patient with a known history of alcohol abuse and prior intoxication who presented to the ED with palpitations and chest pain. According to the records patient presented to the fire department and was brought to the ED. at the time of assessment patient denied any of said complaints. According to the records patient was found to be in atrial fibrillation on the EKG. Patient is assessed in his room in the ICU, lethargic, status post IV Haldol and Ativan. Awakens to voice, is able to tell me where he is then slowly drifts off back to sleep. Follows commands intermittently, speech is clear, is protecting airway, gross motor in bilateral upper and lower extremities appears to be normal. Patient is a poor historian and unable to contribute to the medical history and events leading up to his presentation, medical records have been reviewed. Upon exam patient CBC and BMP were unremarkable. Chest x-ray showed no acute cardiopulmonary disease. Head CT was negative for any acute findings. DS: Diagnosis Discharge Diagnosis (1) Alcohol dependence with intoxication: Status: Acute (2) Palpitation: Status: Acute (3) Rhabdomyolysis: Status: Acute (4) B12 deficiency: Status: Acute (5) Paroxysmal atrial fibrillation: Status: Acute DS: Summary Time Spent with Patient Total time spent providing and/or coordinating discharge services: Greater than 30 minutes Exam Narrative Exam Narrative: GENERAL: Well-developed, well-nourished, in no acute distress. alert and orientated x4 HEENT: Head is normocephalic without any lesions or masses noted. Facial features are symmetric. Eyes: Extraocular muscles are intact. Conjunctivae were clear. NECK: Supple without any masses. Trachea midline no deviation. No JVD, CARDIAC: Regular rhythm, regular rate. S1/S2 are heard. No murmurs gallops or rubs. LUNGS: Clear to auscultation bilaterally. No wheeze, rhonchi or rales. No use of accessory muscles on inspiration or expiration. ABDOMEN: Soft, nontender. Nondistended. Bowel sounds heard in all 4 quadrants. No organomegaly or masses. Negative rebound, negative guarding EXTREMITIES: No edema, pulses are equal bilaterally. No cyanosis or clubbing NEUROLOGY: Mood and affect appear appropriate. Cranial nerves II through XII grossly intact. Moving all extremities, speech is clear Results Labs on day of discharge: Labs from last 24 hours 02/04/18 02/04/18 02/01/18 07:00 02:33 18:15 POC Glucose 110 Total Creatine Kinase 371 H CK-MB (CK-2) 4.0 H CK-MB (CK-2) % 1.1 Urine Myoglobin 25 H Impressions ITS Impressions Chest X-Ray 01/29/18 14:43 CONCLUSION: No acute cardiopulmonary disease. Head CT 01/29/18 16:21 CONCLUSION: Slight chronic small vessel ischemic and atrophic changes, stable ventriculomegaly . ECHOCARDIOGRAM Normal left ventricular size, wall thickness and upper limits of normal Left ventricular systolic function was normal with ejection fraction 55-60% Trace mitral valve regurgitation Trileaflet aortic valve, minimal aortic valve sclerosis Trace tricuspid valve regurgitation PA peak pressure 35mmhg Discharge Plan Discharge Condition Condition: Stable Physicians Team Primary Care Provider: [facility]ician 's Attending Provider: Dalia Benitez Other Providers: Anthony Arora Rxs /Orders / Referrals /Forms Prescriptions: No Action No Known Home Medications RF: 0 Referrals: [facility],Physician 's [Primary Care Provider] - See Instructions Discharge Instructions Patient Printed Instructions: Chest Wall Pain (ED) Status ED Status: Left Department
--- NOTE | 2018-02-04 11:11 | P.DS ---
DS: Providers Date of admission: 01/29/18 19:42 Primary care physician: [facility] Consults: 01/30/18 14:16 Consult to Cardiology Routine Consulting Provider: Anthony Arora Does the patient have a Business Administration Instructor who follows them?: No Preferred Clinical Supervisor:: Principal Network Architect Physician Reason for Consultation: new onset a fib Notified:: Office Spoke with:: ZACH Date Notified:: 01/30/18 Time Notified:: 14:20 Ordering Provider: MACHO Anticipated date of discharge: 02/04/18 DS: Diagnosis Discharge Diagnosis (1) Alcohol dependence with intoxication: Status: Acute (2) Palpitation: Status: Acute (3) Rhabdomyolysis: Status: Acute (4) B12 deficiency: Status: Acute (5) Paroxysmal atrial fibrillation: Status: Acute DS: Summary 67-year-old male with known history of alcohol abuse who presented to hospital with chest pain and palpitations. Patient apparently had significant alcohol withdrawal and was placed on CIWA protocol requiring Ativan and Haldol. Patient became very lethargic and was having delirium and hallucinations. Workup did indicate irregular rhythm of atrial fibrillation which converted to sinus rhythm. Patient did undergo cardiology evaluation who recommended atenolol for rate control and due to the chads score of 1 recommended holding off on any anticoagulation. Echocardiogram was performed please see results. Patient has significant alcohol withdrawal requiring delayed hospitalization. Patient did have worsening of his mentation and workup was performed which did indicate a mild B12 deficiency in which replacement was started. Patient tolerated treatment well and started becoming more alert. Patient was transferred to the medical floor and has been functioning quite well over the last 48 hours. He has not required any Ativan in over 24 hours. Patient is alert and orientated today. Patient is very eager to go home. Patient clinically stable at this time. No more signs of alcohol withdrawal. No recurrent atrial fibrillation. Is recommend the patient follow-up with cardiology in outpatient setting. We will plan discharge accordingly. Time spent discussing smoking cessation with patient: 3 to 10 minutes Time Spent with Patient Total time spent providing and/or coordinating discharge services: Greater than 30 minutes Greater than 30 minutes Exam Narrative Exam Narrative: GENERAL: Well-developed, well-nourished, in no acute distress. alert and orientated HEENT: Head is normocephalic without any lesions or masses noted. Facial features are symmetric. Eyes: Extraocular muscles are intact. Conjunctivae were clear. NECK: Supple without any masses. Trachea midline no deviation. No JVD, CARDIAC: Regular rhythm, regular rate. S1/S2 are heard. No murmurs gallops or rubs. LUNGS: Clear to auscultation bilaterally. No wheeze, rhonchi or rales. No use of accessory muscles on inspiration or expiration. ABDOMEN: Soft, nontender. Nondistended. Bowel sounds heard in all 4 quadrants. No organomegaly or masses. Negative rebound, negative guarding EXTREMITIES: No edema, pulses are equal bilaterally. No cyanosis or clubbing NEUROLOGY: Mood and affect appear appropriate. Cranial nerves II through XII grossly intact. Moving all extremities, speech is clear Results Procedures completed during hospitalization: ECHOCARDIOGRAM Normal ventricular function with ejection fraction 50-55% Labs on day of discharge: Labs from last 24 hours 02/04/18 02/04/18 02/01/18 07:00 02:33 18:15 POC Glucose 110 Total Creatine Kinase 371 H CK-MB (CK-2) 4.0 H CK-MB (CK-2) % 1.1 Urine Myoglobin 25 H Impressions ITS Impressions Chest X-Ray 01/29/18 14:43 CONCLUSION: No acute cardiopulmonary disease. Head CT 01/29/18 16:21 CONCLUSION: Slight chronic small vessel ischemic and atrophic changes, stable ventriculomegaly . ECHOCARDIOGRAM Normal ventricular function and ejection fraction 55-60% Trace mitral valve regurgitation Trileaflet aortic valve with minimal aortic valve sclerosis Pulmonary peak pressure 35mmhg Discharge Plan Discharge Disposition Patient Disposition: Discharge Home Discharge Condition Condition: Stable Discharge Order Discharge Orders: Discharge Order (Routine); Ordered 02/04/18 Ordered By: Olaf Sahni Discharge Details Anticipated Discharge Date: 02/04/18 Discharge Comment: Okay to discharge home once home health care has been arranged by case management Physicians Team ED Provider: Chris Franklin Primary Care Provider: [facility],Physician 's Attending Provider: Dalia Benitez Other Providers: Anthony Arora Rxs /Orders / Referrals /Forms Prescriptions: New cyanocobalamin (vitamin B-12) [Vitamin B-12] 1,000 mcg Tablet 1,000 mcg PO DAILY Qty: 30 RF: 0 atenolol 50 mg Tablet 50 mg PO DAILY Qty: 30 RF: 0 No Action No Known Home Medications RF: 0 Referrals: [facility],Physician 's [Primary Care Provider] - See Instructions ( Please call the physician's office to book the appointment to be seen within [ ].) Anthony Arora MD [Physician] - See Instructions (Please follow-up in 2 weeks Please call the physician's office to book the appointment to be seen within [].) Discharge Instructions Patient Printed Instructions: Chest Wall Pain (ED) Status ED Status: Left Department
[2018-02-04] MEDS: Heparin - SQ 10,000 UNITS/ML Vial SQ SCH ×2 (11:25→23:19)
[2018-02-04] MEDS: Atenolol 50 MG Tablet PO SCH (11:26)
[2018-02-04] MEDS: Senna/Docusate Sodium 8.6/50 MG Tablet PO SCH ×2 (11:26→23:19)
--- NOTE | 2018-02-04 14:04 | P.DCO ---
Diagnosis (1) Alcohol dependence with intoxication: Status: Acute (2) Palpitation: Status: Acute (3) Rhabdomyolysis: Status: Acute (4) B12 deficiency: Status: Acute (5) Paroxysmal atrial fibrillation: Status: Acute (6) Physical deconditioning: Status: Acute Physical Therapy Order: Evaluate and treat, Improve ambulation and Strength and gait training Occupational Therapy Order: Evaluate and treat, Improve ADL, Gross motor coordination and Fine motor coordination Home Health Nursing Order: Medical education and Nursing assessment with vital signs Cnc Machine Programmer Order: To evaluate: Living conditions/environment and Support services Order: To provide: Long range planning and Community services Case Management Consult Case Management Consult-Home Health: Yes I have seen patient Nathaniel Laboy on 02/04/18. My clinical findings support the need for the requested home health care services because: Medication compliance is questionable, Limited ability to care for self, Impaired cognition/judgement and High risk of falls I certify that my clinical findings support that this patient is homebound because: Impaired cognitive ability/safety, Unsteady gait/balance and Unsafe to leave home unassisted _ (1) Alcohol dependence with intoxication Qualifiers: Complication of substance-induced condition: uncomplicated Qualified Code(s) : F10.220 - Alcohol dependence with intoxication, uncomplicated
[2018-02-05] MEDS: Sod Chloride 0.9% Inj 1,000 ML IV.CONT SCH (01:47)
--- NOTE | 2018-02-05 08:06 | P.PNIM ---
Subjective Interval history: 67-year-old male who is seen examined today for follow-up on alcoholism, alcohol withdrawals. Patient was discharged home yesterday with home health care which was arranged by case management. Physical therapy recommended patient can go home with home health care. No need for any rehab at this time. However when the patient was getting up to leave yesterday he did slip and fall, transportation did not feel comfortable taking him to his house at that time. Discussed with the patient of his home life. He states he does have a girlfriend and is hoping that she will come pick him up today. Patient does want to go home. He states that he will take a bus home with we will let him. Vital signs are stable. Patient remains afebrile. Physical Exam Vital signs: Last Vital Signs Temp 99 F 02/05/18 00:00 Pulse 68 02/05/18 00:00 Resp 18 02/05/18 04:54 BP 178/91 H 02/05/18 00:00 Pulse Ox 99 02/05/18 00:00 Intake & Output 02/03/18 02/04/18 02/05/18 02/06/18 06:59 06:59 06:59 06:59 Intake Total 4500 / 4500 4020 / 4020 2720 / 2720 Output Total 1200 / 1200 900 / 900 1200 / 1200 Balance 3300 / 3300 3120 / 3120 1520 / 1520 Weight 73.6 kg 73.4 kg 77.1 kg Narrative: GENERAL: Well-developed, well-nourished, in no acute distress. Patient is much more alert, orientated to person, place, time HEENT: Head is normocephalic without any lesions or masses noted. Facial features are symmetric. No nystagmus CARDIAC: Regular rhythm, regular rate. S1/S2 are heard. No murmurs gallops or rubs. LUNGS: Clear to auscultation bilaterally. No wheeze, rhonchi or rales. No use of accessory muscles on inspiration or expiration. ABDOMEN: Soft, nontender. Nondistended. Bowel sounds heard in all 4 quadrants. No organomegaly or masses. Negative rebound, negative guarding EXTREMITIES: No edema, pulses are equal bilaterally. No cyanosis or clubbing NEUROLOGY: Mood and affect appear appropriate. No signs of any withdrawal symptoms at this time Urinary Catheter Management Straight: Cath placed during this visit: no Results Labs CBC & Chem 7: 02/02/18 12:10 02/02/18 12:10 Procedures Procedures: ECHOCARDIOGRAM Normal ventricular function with ejection fraction 50-55% Assessment and Plan (1) Alcohol dependence with intoxication: Code(s): F10.229 - Alcohol dependence with intoxication, unspecified Status: Acute (2) Palpitation: Code(s): R00.2 - Palpitations Status: Acute (3) Rhabdomyolysis: Code(s): M62.82 - Rhabdomyolysis Status: Acute (4) B12 deficiency: Code(s): E53.8 - Deficiency of other specified B group vitamins Status: Acute (5) Paroxysmal atrial fibrillation: Code(s): I48.0 - Paroxysmal atrial fibrillation Status: Acute Plan Chronic alcohol abuse with acute alcohol withdrawal and DTs -Head CT showing no acute findings. Shows some chronic small vessel ischemia and atrophic changes, stable ventriculomegaly. -CIWA protocol in place. Monitor vitals and labs. -Start Librium 10 mg every 6 hours -Close monitoring. -Seizure precautions. -Continue thiamine, folate and multivitamin. Altered mental status, resolved -Likely secondary to alcohol withdrawal, medication side effect, hepatic encephalopathy -Previous CT did not indicate any acute abnormality -Laboratory studies are relatively unremarkable, some mild B12 deficiency Rhabdomyolysis, improving -Continue IV fluid -Monitor CPK -Awaiting urine myoglobin B12 deficiency -Status post vitamin B12 1000 mcg IM -Continue B12 1000 mcg p.o. daily Paroxysmal atrial fibrillation -Patient ruled out for acute coronary event with serial cardiac enzymes that are negative, -Serial EKGs were reviewed and initial EKG showed likely atrial relation with RVR, follow-up EKG shows sinus rhythm without any changes -Continue atenolol for rate control -CHADS2 score of 1, no anticoagulation at this time -Cardiology evaluated the patient indicated that Atrial fibrillation likely secondary to alcohol withdrawal, started atenolol for rate control, no anticoagulation at this time. Cardiology has signed off. DVT Prophylaxis: -Sequential compression devices -Subcutaneous heparin _ (1) Alcohol dependence with intoxication Qualifiers: Complication of substance-induced condition: uncomplicated Qualified Code(s) : F10.220 - Alcohol dependence with intoxication, uncomplicated
[2018-02-05 08:11] LABS: Creatine Kinase 249 U/L (39-308)
[2018-02-05] MEDS: Atenolol 50 MG Tablet PO SCH (08:59)
[2018-02-05] MEDS: Heparin - SQ 10,000 UNITS/ML Vial SQ SCH ×2 (08:59→21:36)
[2018-02-05] MEDS: Senna/Docusate Sodium 8.6/50 MG Tablet PO SCH ×2 (09:00→21:37)
[2018-02-06] MEDS: Senna/Docusate Sodium 8.6/50 MG Tablet PO SCH ×2 (09:41→21:01)
[2018-02-06] MEDS: Atenolol 50 MG Tablet PO SCH (09:41)
[2018-02-06] MEDS: Heparin - SQ 10,000 UNITS/ML Vial SQ SCH ×2 (09:41→21:01)
--- NOTE | 2018-02-06 10:26 | P.PNIM ---
Subjective Interval history: Upon alcohol withdrawal, physical deconditioning. Patient did have active discharge for the last 2 days, however patient did slip and fall prior to discharge 2 days ago. Physical therapy reevaluated the patient and indicates the patient is not safe to go home and should go to a rehab facility. The patient herself is very disappointed that he cannot go home. That is his goal. He denies any new symptoms at this time. Patient remains afebrile. Vital signs are stable. Physical Exam Vital signs: Last Vital Signs Temp 97.7 F 02/06/18 08:00 Pulse 61 02/06/18 08:00 Resp 20 02/06/18 08:00 BP 135/63 02/06/18 08:00 Pulse Ox 94 L 02/06/18 08:00 Intake & Output 02/04/18 02/05/18 02/06/18 02/07/18 06:59 06:59 06:59 06:59 Intake Total 4020 / 4020 2720 / 2720 1020 / 1020 Output Total 900 / 900 1200 / 1200 500 / 500 Balance 3120 / 3120 1520 / 1520 520 / 520 Weight 73.4 kg 77.1 kg 72.8 kg Narrative: GENERAL: Well-developed, well-nourished, in no acute distress. Alert and orientated x3 HEENT: Head is normocephalic without any lesions or masses noted. Facial features are symmetric. No nystagmus CARDIAC: Regular rhythm, regular rate. S1/S2 are heard. No murmurs gallops or rubs. LUNGS: Clear to auscultation bilaterally. No wheeze, rhonchi or rales. No use of accessory muscles on inspiration or expiration. ABDOMEN: Soft, nontender. Nondistended. Bowel sounds heard in all 4 quadrants. No organomegaly or masses. Negative rebound, negative guarding EXTREMITIES: No edema, pulses are equal bilaterally. No cyanosis or clubbing NEUROLOGY: Mood and affect appear appropriate. No signs of any withdrawal symptoms at this time Urinary Catheter Management Straight: Cath placed during this visit: no Results Labs CBC & Chem 7: 02/02/18 12:10 02/02/18 12:10 Procedures Procedures: ECHOCARDIOGRAM Normal ventricular function with ejection fraction 50-55% Assessment and Plan (1) Alcohol dependence with intoxication: Code(s): F10.229 - Alcohol dependence with intoxication, unspecified Status: Acute (2) Palpitation: Code(s): R00.2 - Palpitations Status: Acute (3) Rhabdomyolysis: Code(s): M62.82 - Rhabdomyolysis Status: Acute (4) B12 deficiency: Code(s): E53.8 - Deficiency of other specified B group vitamins Status: Acute (5) Paroxysmal atrial fibrillation: Code(s): I48.0 - Paroxysmal atrial fibrillation Status: Acute Plan Physical deconditioning, cognition impairment -Likely secondary to chronic alcohol abuse, prolonged stay in the hospital -Case management consulted for discharge to rehab facility versus home with home health care -Physical therapy indicating patient requires rehab facility Chronic alcohol abuse with acute alcohol withdrawal and DTs, resolved -Head CT showing no acute findings. Shows some chronic small vessel ischemia and atrophic changes, stable ventriculomegaly. -CIWA protocol in place. Monitor vitals and labs. -Start Librium 10 mg every 6 hours -Close monitoring. -Seizure precautions. -Continue thiamine, folate and multivitamin. Altered mental status, resolved -Likely secondary to alcohol withdrawal, medication side effect, hepatic encephalopathy -Previous CT did not indicate any acute abnormality -Laboratory studies are relatively unremarkable, some mild B12 deficiency Rhabdomyolysis, improving -Continue IV fluid -Monitor CPK -Awaiting urine myoglobin B12 deficiency -Status post vitamin B12 1000 mcg IM -Continue B12 1000 mcg p.o. daily Paroxysmal atrial fibrillation -Patient ruled out for acute coronary event with serial cardiac enzymes that are negative, -Serial EKGs were reviewed and initial EKG showed likely atrial relation with RVR, follow-up EKG shows sinus rhythm without any changes -Continue atenolol for rate control -CHADS2 score of 1, no anticoagulation at this time -Cardiology evaluated the patient indicated that Atrial fibrillation likely secondary to alcohol withdrawal, started atenolol for rate control, no anticoagulation at this time. Cardiology has signed off. DVT Prophylaxis: -Sequential compression devices -Subcutaneous heparin _ (1) Alcohol dependence with intoxication Qualifiers: Complication of substance-induced condition: uncomplicated Qualified Code(s) : F10.220 - Alcohol dependence with intoxication, uncomplicated
[2018-02-07] MEDS: Atenolol 50 MG Tablet PO SCH (08:45)
[2018-02-07] MEDS: Senna/Docusate Sodium 8.6/50 MG Tablet PO SCH ×2 (08:46→22:16)
[2018-02-07] MEDS: Heparin - SQ 10,000 UNITS/ML Vial SQ SCH ×2 (08:48→22:17)
--- NOTE | 2018-02-07 10:28 | P.PNIM ---
Subjective Interval history: Follow-up deconditioning and alcohol withdrawal. Patient seen and examined, sitting on side of bed comfortably. Awake and alert x3. Following commands. He states he feels improved. He is doing well continue to work with therapy. Case management assisting with discharge. At this time patient needs rehab. Vital signs stable. Afebrile. Eating well without any nausea vomiting diarrhea or abdominal pain. Physical Exam Vital signs: Vital Signs 02/06/18 12:00 02/06/18 16:00 02/06/18 20:00 Temperature 96.2 F L 97.9 F 96.9 F L Pulse Rate 54 L 67 64 Respiratory Rate 20 20 20 Blood Pressure 152/75 H 159/91 H 144/69 H Pulse Oximetry 100 96 97 02/07/18 00:00 02/07/18 08:00 Temperature 98.3 F 98.2 F Pulse Rate 57 L 65 Respiratory Rate 18 17 Blood Pressure 169/80 H 117/63 Pulse Oximetry 97 95 Intake & Output 02/06/18 02/07/18 02/07/18 18:59 06:59 18:59 Intake Total 960 / 960 240 / 240 Output Total 75 / 75 350 / 350 Balance 885 / 885 -110 / -110 Intake: Oral 960 / 960 240 / 240 Output: Urine 75 / 75 350 / 350 Other: # Voids 8 # Urine Diapers 1 Date of Last Bowel Movement 02/03/18 Narrative: GENERAL: Well-developed, well-nourished, in no acute distress. Alert and orientated x3 HEENT: Head is normocephalic without any lesions or masses noted. Facial features are symmetric. No nystagmus CARDIAC: Regular rhythm, regular rate. S1/S2 are heard. No murmurs gallops or rubs. LUNGS: Clear to auscultation bilaterally. No wheeze, rhonchi or rales. No use of accessory muscles on inspiration or expiration. ABDOMEN: Soft, nontender. Nondistended. Bowel sounds heard in all 4 quadrants. No organomegaly or masses. Negative rebound, negative guarding EXTREMITIES: No edema, pulses are equal bilaterally. No cyanosis or clubbing NEUROLOGY: Mood and affect appear appropriate. No signs of any withdrawal symptoms at this time - Urinary Catheter Management Straight Cath placed during this visit: no Results - Labs CBC & Chem 7: 02/02/18 12:10 02/02/18 12:10 Laboratory Results - last 24 hr 02/02/18 17:08 Methylmalonic Acid 0.26 - Procedures ECHOCARDIOGRAM Normal ventricular function with ejection fraction 50-55% Assessment and Plan - Assessment (1) Alcohol dependence with intoxication Code(s): F10.229 - Alcohol dependence with intoxication, unspecified Status: Acute (2) Palpitation Code(s): R00.2 - Palpitations Status: Acute (3) Rhabdomyolysis Code(s): M62.82 - Rhabdomyolysis Status: Acute (4) B12 deficiency Code(s): E53.8 - Deficiency of other specified B group vitamins Status: Acute (5) Paroxysmal atrial fibrillation Code(s): I48.0 - Paroxysmal atrial fibrillation Status: Acute - Plan This is a 67-year-old male patient with: Physical deconditioning, cognition impairment -Likely secondary to chronic alcohol abuse, prolonged stay in the hospital -Case management consulted for discharge to rehab facility versus home with home health care -Physical therapy indicating patient requires rehab facility Chronic alcohol abuse with acute alcohol withdrawal and DTs, resolved -Head CT showing no acute findings. Shows some chronic small vessel ischemia and atrophic changes, stable ventriculomegaly. -CIWA protocol in place. Monitor vitals and labs. -Continue Librium 10 mg every 6 hours -Close monitoring. -Seizure precautions. -Continue thiamine, folate and multivitamin. Altered mental status, resolved -Likely secondary to alcohol withdrawal, medication side effect, hepatic encephalopathy -Previous CT did not indicate any acute abnormality -Laboratory studies are relatively unremarkable, some mild B12 deficiency Rhabdomyolysis, resolved -Continue IV fluid -Monitor CPK -Urine myoglobin 25. B12 deficiency -Status post vitamin B12 1000 mcg IM -Continue B12 1000 mcg p.o. daily Paroxysmal atrial fibrillation -Patient ruled out for acute coronary event with serial cardiac enzymes that are negative, -Serial EKGs were reviewed and initial EKG showed likely atrial relation with RVR, follow-up EKG shows sinus rhythm without any changes -Continue atenolol for rate control -CHADS2 score of 1, no anticoagulation at this time -Cardiology evaluated the patient indicated that Atrial fibrillation likely secondary to alcohol withdrawal, started atenolol for rate control, no anticoagulation at this time. Cardiology has signed off. DVT Prophylaxis: -Sequential compression devices -Subcutaneous heparin Discharge Planning: Awaiting improvement of deconditioning. Physical therapy recommendations for rehab at this time. Case management assisting. (1) Alcohol dependence with intoxication Qualifiers: Complication of substance-induced condition: uncomplicated Qualified Code(s) : F10.220 - Alcohol dependence with intoxication, uncomplicated
[2018-02-08 06:45] LABS: Baso # (Auto) 0.1 th/mm3 (0.0-0.2); Baso % (Auto) 0.9 % (0.0-2.0); Eos # (Auto) 0.1 th/mm3 (0.0-0.4); Eos % (Auto) 1.7 % (0.0-4.0); Hematocrit 30.4 % (39.0-51.0); Hemoglobin 10.2 gm/dL (13.0-17.0); Lymph # (Auto) 2.1 th/mm3 (1.0-4.8); Lymph % (Auto) 38.1 % (9.0-44.0); Mean Corpuscular HGB Conc 33.4 % (32.0-36.0); Mean Corpuscular Hemoglobin 35.7 pg (27.0-34.0); Mean Corpuscular Volume 106.6 fL (80.0-100.0); Mean Platelet Volume 7.8 fL (7.0-11.0); Mono # (Auto) 0.8 th/mm3 (0.0-0.9); Mono % (Auto) 14.3 % (0.0-8.0); Neut # (Auto) 2.5 th/mm3 (1.8-7.7); Platelet Count 229 th/mm3 (150-450); Red Blood Count 2.85 mil/mm3 (4.50-5.90); Red Cell Distribution Width 15.9 % (11.6-17.2); White Blood Count 5.6 th/mm3 (4.0-11.0)
[2018-02-08 06:56] LABS: Chloride 104 meq/L (98-107); Potassium 3.6 meq/L (3.5-5.1); Sodium 139 meq/L (136-145)
[2018-02-08 06:58] LABS: Calcium 7.9 mg/dL (8.5-10.1)
[2018-02-08 06:59] LABS: Anion Gap 7 meq/L (5-15); Blood Urea Nitrogen 10 mg/dL (7-18); Carbon Dioxide 28.5 meq/L (21.0-32.0); Glucose,Random 92 mg/dL (74-106)
[2018-02-08 07:02] LABS: Glomerular Filtration Rate Greater Than 89 mL/min (>89)
[2018-02-08] MEDS: Atenolol 50 MG Tablet PO SCH (08:36)
[2018-02-08] MEDS: Senna/Docusate Sodium 8.6/50 MG Tablet PO SCH ×2 (08:36→22:43)
[2018-02-08] MEDS: Heparin - SQ 10,000 UNITS/ML Vial SQ SCH ×2 (08:36→22:42)
--- NOTE | 2018-02-08 09:53 | P.PNIM ---
Subjective Interval history: Follow-up physical deconditioning and alcohol withdrawal. Patient seen and examined, awake and alert and oriented x2, mild confusion to situation and place. No acute events overnight. Eating well without any nausea or vomiting. No pain or shortness of breath. Physical Exam Vital signs: Vital Signs 02/07/18 12:00 02/07/18 16:00 02/07/18 20:00 Temperature 98.6 F 98.0 F 97.8 F Pulse Rate 58 L 62 66 Respiratory Rate 17 17 16 Blood Pressure 126/58 L 124/68 131/90 Pulse Oximetry 95 96 94 L 02/08/18 00:00 02/08/18 04:00 02/08/18 08:00 Temperature 99.4 F 99.1 F 97.9 F Pulse Rate 68 68 56 L Respiratory Rate 16 16 18 Blood Pressure 132/80 130/75 151/78 H Pulse Oximetry 94 L 95 97 Intake & Output 02/07/18 02/08/18 02/08/18 18:59 06:59 18:59 Intake Total 1020 / 1020 Output Total 900 / 900 Balance 120 / 120 Intake: Oral 1020 / 1020 Output: Urine 900 / 900 Other: # Urine Diapers 1 # Bowel Movements 0 Narrative: GENERAL: Well-developed, well-nourished, in no acute distress. Alert and orientated x2 HEENT: Head is normocephalic without any lesions or masses noted. Facial features are symmetric. No nystagmus CARDIAC: Regular rhythm, regular rate. S1/S2 are heard. No murmurs gallops or rubs. LUNGS: Clear to auscultation bilaterally. No wheeze, rhonchi or rales. No use of accessory muscles on inspiration or expiration. ABDOMEN: Soft, nontender. Nondistended. Bowel sounds heard in all 4 quadrants. No organomegaly or masses. Negative rebound, negative guarding EXTREMITIES: No edema, pulses are equal bilaterally. No cyanosis or clubbing NEUROLOGY: Mood and affect appear appropriate. No signs of any withdrawal symptoms at this time - Urinary Catheter Management Straight Cath placed during this visit: no Results - Labs CBC & Chem 7: 02/08/18 06:25 02/08/18 06:25 Laboratory Results - last 24 hr 02/08/18 02/08/18 06:25 06:25 CBC w Diff Auto diff final WBC 5.6 RBC 2.85 L Hgb 10.2 L Hct 30.4 L MCV 106.6 H MCH 35.7 H MCHC 33.4 RDW 15.9 Plt Count 229 D MPV 7.8 Neut % (Auto) 45.0 Lymph % (Auto) 38.1 Irion % (Auto) 14.3 H Eos % (Auto) 1.7 Baso % (Auto) 0.9 Neut # (Auto) 2.5 Lymph # (Auto) 2.1 Irion # (Auto) 0.8 Eos # (Auto) 0.1 Baso # (Auto) 0.1 WBC Differential . Differential Comment . Sodium 139 Potassium 3.6 Chloride 104 Carbon Dioxide 28.5 Anion Gap 7 BUN 10 Creatinine 0.58 L Estimated GFR Greater than 89 Random Glucose 92 Calcium 7.9 L - Procedures ECHOCARDIOGRAM Normal ventricular function with ejection fraction 50-55% Assessment and Plan - Assessment (1) Alcohol dependence with intoxication Code(s): F10.229 - Alcohol dependence with intoxication, unspecified Status: Acute (2) Palpitation Code(s): R00.2 - Palpitations Status: Acute (3) Rhabdomyolysis Code(s): M62.82 - Rhabdomyolysis Status: Acute (4) B12 deficiency Code(s): E53.8 - Deficiency of other specified B group vitamins Status: Acute (5) Paroxysmal atrial fibrillation Code(s): I48.0 - Paroxysmal atrial fibrillation Status: Acute - Plan This is a 67-year-old male patient with: Physical deconditioning, cognition impairment -Likely secondary to chronic alcohol abuse, prolonged stay in the hospital -Case management consulted for discharge to rehab facility versus home with home health care -Physical therapy indicating patient requires rehab facility Chronic alcohol abuse with acute alcohol withdrawal and DTs, resolved -Head CT showing no acute findings. Shows some chronic small vessel ischemia and atrophic changes, stable ventriculomegaly. -[facility] protocol in [facility]. Monitor vitals and labs. -Continue Librium 10 mg every 6 hours -Close monitoring. -Seizure precautions. -Continue thiamine, folate and multivitamin. Altered mental status, resolved -Likely secondary to alcohol withdrawal, medication side effect, hepatic encephalopathy -Previous CT did not indicate any acute abnormality -Laboratory studies are relatively unremarkable, some mild B12 deficiency Rhabdomyolysis, resolved -Continue IV fluid -Monitor CPK -Urine myoglobin 25. B12 deficiency -Status post vitamin B12 1000 mcg IM -Continue B12 1000 mcg p.o. daily Paroxysmal atrial fibrillation -Patient ruled out for acute coronary event with serial cardiac enzymes that are negative, -Serial EKGs were reviewed and initial EKG showed likely atrial relation with RVR, follow-up EKG shows sinus rhythm without any changes -Continue atenolol for rate control -CHADS2 score of 1, no anticoagulation at this time -Cardiology evaluated the patient indicated that Atrial fibrillation likely secondary to alcohol withdrawal, started atenolol for rate control, no anticoagulation at this time. Cardiology has signed off. DVT Prophylaxis: -Sequential compression devices -Subcutaneous heparin Discharge Planning: Awaiting improvement of deconditioning. Physical therapy recommendations for rehab at this time. Case management assisting. (1) Alcohol dependence with intoxication Qualifiers: Complication of substance-induced condition: uncomplicated Qualified Code(s) : F10.220 - Alcohol dependence with intoxication, uncomplicated
[2018-02-09] MEDS: Senna/Docusate Sodium 8.6/50 MG Tablet PO SCH ×2 (08:40→21:26)
[2018-02-09] MEDS: Atenolol 50 MG Tablet PO SCH (08:40)
[2018-02-09] MEDS: Heparin - SQ 10,000 UNITS/ML Vial SQ SCH ×2 (08:41→21:26)
--- NOTE | 2018-02-09 10:20 | P.PNIM ---
Subjective Interval history: , Physical deconditioning alcohol withdrawal. Patient seen and examined, sitting on side of bed comfortably no apparent distress. No acute events overnight. Eating well without any nausea or vomiting. Denies any shortness of breath or chest pain. Continue to work with PT. Physical Exam Vital signs: Vital Signs 02/08/18 12:00 02/08/18 15:56 02/08/18 20:00 Temperature 97.7 F 97.7 F 96.6 F L Pulse Rate 56 L 60 60 Respiratory Rate 18 18 18 Blood Pressure 121/82 111/71 135/70 Pulse Oximetry 97 97 100 02/09/18 00:00 02/09/18 08:57 Temperature 97.7 F 96.8 F L Pulse Rate 61 58 L Respiratory Rate 18 Blood Pressure 165/81 H 117/56 L Pulse Oximetry 99 98 Intake & Output 02/08/18 02/09/18 02/09/18 18:59 06:59 18:59 Intake Total 845 / 845 Output Total 800 / 800 1200 / 1200 Balance -800 / -800 -355 / -355 Weight 72.7 kg Intake: Oral 845 / 845 Output: Urine 800 / 800 1200 / 1200 Other: Date of Last Bowel Movement 02/07/18 02/07/18 Narrative: GENERAL: Well-developed, well-nourished, in no acute distress. Alert and orientated x2 HEENT: Head is normocephalic without any lesions or masses noted. Facial features are symmetric. No nystagmus CARDIAC: Regular rhythm, regular rate. S1/S2 are heard. No murmurs gallops or rubs. LUNGS: Clear to auscultation bilaterally. No wheeze, rhonchi or rales. No use of accessory muscles on inspiration or expiration. ABDOMEN: Soft, nontender. Nondistended. Bowel sounds heard in all 4 quadrants. No organomegaly or masses. Negative rebound, negative guarding EXTREMITIES: No edema, pulses are equal bilaterally. No cyanosis or clubbing NEUROLOGY: Mood and affect appear appropriate. No signs of any withdrawal symptoms at this time - Urinary Catheter Management Straight Cath placed during this visit: no Results - Labs CBC & Chem 7: 02/08/18 06:25 02/08/18 06:25 - Procedures ECHOCARDIOGRAM Normal ventricular function with ejection fraction 50-55% Assessment and Plan - Assessment (1) Alcohol dependence with intoxication Code(s): F10.229 - Alcohol dependence with intoxication, unspecified Status: Acute (2) Palpitation Code(s): R00.2 - Palpitations Status: Acute (3) Rhabdomyolysis Code(s): M62.82 - Rhabdomyolysis Status: Acute (4) B12 deficiency Code(s): E53.8 - Deficiency of other specified B group vitamins Status: Acute (5) Paroxysmal atrial fibrillation Code(s): I48.0 - Paroxysmal atrial fibrillation Status: Acute - Plan This is a 67-year-old male patient with: Physical deconditioning, cognition impairment -Likely secondary to chronic alcohol abuse, prolonged stay in the hospital -Case management consulted for discharge to rehab facility versus home with home health care -Physical therapy indicating patient requires rehab facility Chronic alcohol abuse with acute alcohol withdrawal and DTs, resolved -Head CT showing no acute findings. Shows some chronic small vessel ischemia and atrophic changes, stable ventriculomegaly. -CIWA protocol in place. Monitor vitals and labs. -Continue Librium 10 mg every 6 hours -Close monitoring. -Seizure precautions. -Continue thiamine, folate and multivitamin. Altered mental status, resolved -Likely secondary to alcohol withdrawal, medication side effect, hepatic encephalopathy -Previous CT did not indicate any acute abnormality -Laboratory studies are relatively unremarkable, some mild B12 deficiency Rhabdomyolysis, resolved -Continue IV fluid -Monitor CPK -Urine myoglobin 25. B12 deficiency -Status post vitamin B12 1000 mcg IM -Continue B12 1000 mcg p.o. daily Paroxysmal atrial fibrillation -Patient ruled out for acute coronary event with serial cardiac enzymes that are negative, -Serial EKGs were reviewed and initial EKG showed likely atrial relation with RVR, follow-up EKG shows sinus rhythm without any changes -Continue atenolol for rate control -CHADS2 score of 1, no anticoagulation at this time -Cardiology evaluated the patient indicated that Atrial fibrillation likely secondary to alcohol withdrawal, started atenolol for rate control, no anticoagulation at this time. Cardiology has signed off. DVT Prophylaxis: -Sequential compression devices -Subcutaneous heparin Discharge Planning: Awaiting improvement of deconditioning. Physical therapy recommendations for rehab at this time. Case management assisting. (1) Alcohol dependence with intoxication Qualifiers: Complication of substance-induced condition: uncomplicated Qualified Code(s) : F10.220 - Alcohol dependence with intoxication, uncomplicated
[2018-02-10] MEDS: Atenolol 50 MG Tablet PO SCH (08:35)
[2018-02-10] MEDS: Senna/Docusate Sodium 8.6/50 MG Tablet PO SCH ×2 (08:35→22:10)
[2018-02-10] MEDS: Heparin - SQ 10,000 UNITS/ML Vial SQ SCH ×2 (08:37→22:09)
--- NOTE | 2018-02-10 15:55 | P.PNIM ---
Subjective Interval history: Patient is seen lying in bed. He complains about generalized aches and pains all of which he has had for some time. Asks me if we are in his apartment. Otherwise no complaints. Nursing reports no adverse events. Physical Exam Vital signs: Last Vital Signs Temp 97.7 F 02/10/18 12:00 Pulse 54 L 02/10/18 12:00 Resp 18 02/10/18 12:00 BP 119/52 L 02/10/18 12:00 Pulse Ox 100 02/10/18 12:00 Intake & Output 02/08/18 02/09/18 02/10/18 02/11/18 06:59 06:59 06:59 06:59 Intake Total 1020 / 1020 845 / 845 590 / 590 Output Total 900 / 900 1999 / 1999 901 / 901 Balance 120 / 120 -1155 / -1155 -311 / -311 Weight 72.7 kg 71.6 kg Narrative: GENERAL: Well-nourished, well-developed adult male in no obvious distress. SKIN: Warm and dry. HEAD: Atraumatic. Normocephalic. CARDIOVASCULAR: Regular rate and rhythm. RESPIRATORY: No accessory muscle use. Clear to auscultation. Breath sounds equal bilaterally. GASTROINTESTINAL: Abdomen soft, non-tender, non-distended. Positive bowel sounds. MUSCULOSKELETAL: Extremities without clubbing, cyanosis, or edema. No obvious deformities. NEUROLOGICAL: Awake and alert. No obvious cranial nerve deficits. Motor grossly within normal limits. Normal speech. PSYCHIATRIC: Poor historian Urinary Catheter Management Straight: Cath placed during this visit: no Results Labs CBC & Chem 7: 02/08/18 06:25 02/08/18 06:25 Procedures Procedures: ECHOCARDIOGRAM Normal ventricular function with ejection fraction 50-55% Assessment and Plan (1) Alcohol dependence with intoxication: Code(s): F10.229 - Alcohol dependence with intoxication, unspecified Status: Acute (2) Palpitation: Code(s): R00.2 - Palpitations Status: Acute (3) Rhabdomyolysis: Code(s): M62.82 - Rhabdomyolysis Status: Acute (4) B12 deficiency: Code(s): E53.8 - Deficiency of other specified B group vitamins Status: Acute (5) Paroxysmal atrial fibrillation: Code(s): I48.0 - Paroxysmal atrial fibrillation Status: Acute Plan This is a 67-year-old male patient with: Physical deconditioning, cognition impairment -Likely secondary to chronic alcohol abuse, prolonged stay in the hospital -Case management consulted for discharge to rehab facility versus home with home health care -Physical therapy indicating patient requires rehab facility Chronic alcohol abuse with acute alcohol withdrawal and DTs, resolved -Head CT showing no acute findings. Shows some chronic small vessel ischemia and atrophic changes, stable ventriculomegaly. -CIWA protocol in place. Monitor vitals and labs. -Continue Librium 10 mg every 6 hours -Close monitoring. -Seizure precautions. -Continue thiamine, folate and multivitamin. Altered mental status, resolved -Likely secondary to alcohol withdrawal, medication side effect, hepatic encephalopathy -Previous CT did not indicate any acute abnormality -Laboratory studies are relatively unremarkable, some mild B12 deficiency Rhabdomyolysis, resolved -Continue IV fluid -Monitor CPK -Urine myoglobin 25. B12 deficiency -Status post vitamin B12 1000 mcg IM -Continue B12 1000 mcg p.o. daily Paroxysmal atrial fibrillation -Patient ruled out for acute coronary event with serial cardiac enzymes that are negative, -Serial EKGs were reviewed and initial EKG showed likely atrial relation with RVR, follow-up EKG shows sinus rhythm without any changes -Continue atenolol for rate control -CHADS2 score of 1, no anticoagulation at this time -Cardiology evaluated the patient indicated that Atrial fibrillation likely secondary to alcohol withdrawal, started atenolol for rate control, no anticoagulation at this time. Cardiology has signed off. DVT Prophylaxis: -Sequential compression devices -Subcutaneous heparin Discharge Planning: Awaiting improvement of deconditioning. Physical therapy recommendations for rehab at this time. Case management assisting. _ (1) Alcohol dependence with intoxication Qualifiers: Complication of substance-induced condition: uncomplicated Qualified Code(s) : F10.220 - Alcohol dependence with intoxication, uncomplicated (2) Rhabdomyolysis Qualifiers: Rhabdomyolysis type: Encounter type:
[2018-02-11] MEDS: Heparin - SQ 10,000 UNITS/ML Vial SQ SCH (09:11)
[2018-02-11] MEDS: Senna/Docusate Sodium 8.6/50 MG Tablet PO SCH (09:11)
[2018-02-11] MEDS: Atenolol 50 MG Tablet PO SCH (09:12)
[2018-02-11 09:39] VITALS: RESP 16; O2SAT 100
[2018-02-11 13:04] VITALS: BP 106/68; PULSE 65; TEMP 97
--- NOTE | 2018-02-11 14:55 | P.PNIM ---
Subjective Interval history: Patient is seen sitting on side of bed. According to staff he has been very difficult -swearing acting out. He is adamant that he can go home and would like to leave. Physical Exam Vital signs: Last Vital Signs Temp 97.0 F L 02/11/18 12:00 Pulse 65 02/11/18 12:00 Resp 16 02/11/18 12:00 BP 106/68 02/11/18 12:00 Pulse Ox 100 02/11/18 12:00 Intake & Output 02/09/18 02/10/18 02/11/18 02/12/18 06:59 06:59 06:59 06:59 Intake Total 845 / 845 590 / 590 600 / 600 Output Total 1999 / 1999 901 / 901 200 / 200 Balance -1155 / -1155 -311 / -311 400 / 400 Weight 72.7 kg 71.6 kg 71.3 kg Narrative: GENERAL: Well-nourished, well-developed adult male in no obvious distress. SKIN: Warm and dry. HEAD: Atraumatic. Normocephalic. CARDIOVASCULAR: Regular rate and rhythm. RESPIRATORY: No accessory muscle use. Clear to auscultation. Breath sounds equal bilaterally. GASTROINTESTINAL: Abdomen soft, non-tender, non-distended. Positive bowel sounds. MUSCULOSKELETAL: Extremities without clubbing, cyanosis, or edema. No obvious deformities. NEUROLOGICAL: Awake and alert. No obvious cranial nerve deficits. Generalized weakness and deterioration. Normal speech. PSYCHIATRIC: Poor historian Urinary Catheter Management Straight: Cath placed during this visit: no Results Labs CBC & Chem 7: 02/08/18 06:25 02/08/18 06:25 Procedures Procedures: ECHOCARDIOGRAM Normal ventricular function with ejection fraction 50-55% Assessment and Plan (1) Alcohol dependence with intoxication: Code(s): F10.229 - Alcohol dependence with intoxication, unspecified Status: Acute (2) Palpitation: Code(s): R00.2 - Palpitations Status: Acute (3) Rhabdomyolysis: Code(s): M62.82 - Rhabdomyolysis Status: Acute (4) B12 deficiency: Code(s): E53.8 - Deficiency of other specified B group vitamins Status: Acute (5) Paroxysmal atrial fibrillation: Code(s): I48.0 - Paroxysmal atrial fibrillation Status: Acute Plan This is a 67-year-old male patient with: Physical deconditioning, cognition impairment -Likely secondary to chronic alcohol abuse, prolonged stay in the hospital -Case management consulted for discharge to rehab facility versus home with home health care -Physical therapy indicating that patient is at his baseline physically. Ideally he would be sent to rehab, [facility] or SNF however he has no financial resources. Patient tells that he does have a caregiver who checks on him at his home. Chronic alcohol abuse with acute alcohol withdrawal and DTs, resolved -Head CT showing no acute findings. Shows some chronic small vessel ischemia and atrophic changes, stable ventriculomegaly. -CIWA protocol in place. Monitor vitals and labs. -Librium ordered -Close monitoring. -Seizure precautions. -Continue thiamine, folate and multivitamin. Altered mental status, resolved -Likely secondary to alcohol withdrawal, medication side effect, hepatic encephalopathy -Previous CT did not indicate any acute abnormality -Laboratory studies are relatively unremarkable, some mild B12 deficiency Rhabdomyolysis, resolved -Continue IV fluid -Monitor CPK -Urine myoglobin 25. B12 deficiency -Status post vitamin B12 1000 mcg IM -Continue B12 1000 mcg p.o. daily Paroxysmal atrial fibrillation -Patient ruled out for acute coronary event with serial cardiac enzymes that are negative, -Serial EKGs were reviewed and initial EKG showed likely atrial relation with RVR, follow-up EKG shows sinus rhythm without any changes -Continue atenolol for rate control -CHADS2 score of 1, no anticoagulation at this time -Cardiology evaluated the patient indicated that Atrial fibrillation likely secondary to alcohol withdrawal, started atenolol for rate control, no anticoagulation at this time. Cardiology has signed off. DVT Prophylaxis: -Sequential compression devices -Subcutaneous heparin Discharge Planning: Awaiting improvement of deconditioning. Physical therapy recommendations for rehab at this time. Case management assisting. _ (1) Alcohol dependence with intoxication Qualifiers: Complication of substance-induced condition: uncomplicated Qualified Code(s) : F10.220 - Alcohol dependence with intoxication, uncomplicated (2) Rhabdomyolysis Qualifiers: Encounter type: Rhabdomyolysis type:
--- NOTE | 2018-02-11 14:58 | P.DS ---
DS: Providers Date of admission: 01/29/18 19:42 Primary care physician: [facility] Consults: 01/30/18 14:16 Consult to Cardiology Routine Consulting Provider: Anthony Arora Does the patient have a Tank Hoop Bender who follows them?: No Preferred Skin Toggler:: [facility] Reason for Consultation: new onset a fib Notified:: Office Spoke with:: ZACH Date Notified:: 01/30/18 Time Notified:: 14:20 Ordering Provider: MACHO 02/06/18 09:45 HUB Only Consult Order Routine Consulting Provider: Mark Martin 02/06/18 09:57 HUB Only Consult Order Routine Consulting Provider: Mark Aguero Reason for Consultation: i have contacted the ms. will you review for admission please. Machelle at [facility] [phone] DS: Diagnosis Discharge Diagnosis (1) Alcohol dependence with intoxication: Status: Acute (2) Palpitation: Status: Acute (3) Rhabdomyolysis: Status: Acute (4) B12 deficiency: Status: Acute (5) Paroxysmal atrial fibrillation: Status: Acute DS: Summary This is a 67-year-old male patient with: Physical deconditioning, cognition impairment-at baseline -Likely secondary to chronic alcohol abuse -Physical therapy indicating that patient is at his baseline physically. Ideally he would be sent to rehab, [facility] or SNF however he has no financial resources. Patient tells that he does have a caregiver who checks on him at his home. Chronic alcohol abuse with acute alcohol withdrawal and DTs, resolved -Head CT showing no acute findings. Shows some chronic small vessel ischemia and atrophic changes, stable ventriculomegaly. -[facility] protocol in place. Monitor vitals and labs. -Librium ordered -Seizure precautions. -Continue thiamine, folate and multivitamin. Altered mental status, resolved -Likely secondary to alcohol withdrawal, medication side effect, hepatic encephalopathy -Previous CT did not indicate any acute abnormality -Laboratory studies are relatively unremarkable, some mild B12 deficiency Rhabdomyolysis, resolved -Continue IV fluid -Monitor CPK -Urine myoglobin 25. B12 deficiency; chronic -Status post vitamin B12 1000 mcg IM -Continue B12 1000 mcg p.o. daily Paroxysmal atrial fibrillation ; resolved -Patient ruled out for acute coronary event with serial cardiac enzymes that are negative, -Serial EKGs were reviewed and initial EKG showed likely atrial relation with RVR, follow-up EKG shows sinus rhythm without any changes -Continue atenolol for rate control -CHADS2 score of 1, no anticoagulation at this time -Cardiology evaluated the patient indicated that Atrial fibrillation likely secondary to alcohol withdrawal, started atenolol for rate control, no anticoagulation at this time. Cardiology has signed off. Time Spent with Patient Total time spent providing and/or coordinating discharge services: <30 min Exam Narrative Exam Narrative: GENERAL: Well-nourished, well-developed adult male in no obvious distress. SKIN: Warm and dry. HEAD: Atraumatic. Normocephalic. CARDIOVASCULAR: Regular rate and rhythm. RESPIRATORY: No accessory muscle use. Clear to auscultation. Breath sounds equal bilaterally. GASTROINTESTINAL: Abdomen soft, non-tender, non-distended. Positive bowel sounds. MUSCULOSKELETAL: Extremities without clubbing, cyanosis, or edema. No obvious deformities. NEUROLOGICAL: Awake and alert. No obvious cranial nerve deficits. Generalized weakness and deterioration. Normal speech. PSYCHIATRIC: Poor historian Results Procedures completed during hospitalization: ECHOCARDIOGRAM Normal ventricular function with ejection fraction 50-55% Impressions ITS Impressions Chest X-Ray 01/29/18 14:43 CONCLUSION: No acute cardiopulmonary disease. Head CT 01/29/18 16:21 CONCLUSION: Slight chronic small vessel ischemic and atrophic changes, stable ventriculomegaly . Discharge Plan Discharge Disposition Patient Disposition: 01 Discharge Home Discharge Condition Condition: Stable Discharge Order Discharge Orders: Discharge Order (Routine); Ordered 02/11/18 Ordered By: Gabriela Garza Discharge Details Anticipated Discharge Date: 02/11/18 Physicians Team ED Provider: Chris Franklin Primary Care Provider: [facility] Attending Provider: Anibal Rushing Other Providers: Anthony Arora ; [facility] ; Mark Aguero Rxs /Orders / Referrals /Forms Prescriptions: New cyanocobalamin (vitamin B-12) [Vitamin B-12] 1,000 mcg Tablet 1,000 mcg PO DAILY Qty: 30 RF: 0 atenolol 50 mg Tablet 50 mg PO DAILY Qty: 30 RF: 0 No Action No Known Home Medications RF: 0 Referrals: Primary Care Provider [Outside] - See Instructions [facility] [Primary Care Provider] - See Instructions ( Please call the physician's office to book your folllow up apt at [phone] ) Discharge Instructions Patient Printed Instructions: Atenolol (By mouth), Acute Delirium (GEN), Alcohol Withdrawal (GEN) Post Discharge Care Plan Care Plan Goals: Your Health Problems: ALCOHOL WITHDRAWAL Goals to Promote Your Health: * To prevent worsening of your condition * To maintain your health at the optimal level Directions to Meet Your Goals: * Take your medications as prescribed * Follow your dietary instruction * Follow activity as directed * Keep your appointments as scheduled * Take your immunizations and boosters as scheduled * If your symptoms worsen call your PCP * If no PCP go to Urgent Care or Emergency Room Smoking is dangerous to your health. Avoid second hand smoke. You may reach the 24-hour crisis hotline for domestic abuse at . Status ED Status: Left Department Discharge Information Discharge Date/Time: 02/11/18 16:09
== END 2018-02-11 16:09 | disposition home or self-care (01) | DRG 897 ==
LOC: PHED 14:34 → PHEDA 19:42 → PHICU 01-30 10:50 → PH3 02-02 21:42
PROVIDERS: ADMIT Internal Medicine; ATTEND Internal Medicine
DX: R41.0 Disorientation, unspecified; E53.8 Deficiency of other specified B group vitamins; R07.9 Chest pain, unspecified; W01.0XXA Fall on same level from slipping, tripping and stumbling without subsequent striking against object, initial encounter; F10.220 Alcohol dependence with intoxication, uncomplicated; I48.0 Paroxysmal atrial fibrillation; M62.82 Rhabdomyolysis; Z78.1 Physical restraint status; F10.231 Alcohol dependence with withdrawal delirium; R03.0 Elevated blood-pressure reading, without diagnosis of hypertension; K72.90 Hepatic failure, unspecified without coma; F17.210 Nicotine dependence, cigarettes, uncomplicated
CPT/HCPCS: 70450; 71010; 71045; 80048; 80053; 80307; 82140; 82550; 82552; 82607; 82746; 82948; 82962; 83520; 83735; 83874; 83880; 83918; 83921; 84484; 85025; 86592; 90774; 93005; 93306; 96374; 97110; 97116; 97163; 97167; 97530; 97535; 99285; C8952; J1630; J1644; J2060; J2405; J3411; J3420; J7030